=== PATIENT | male | born 1960 | race Caucasian/White ===

== ENCOUNTER 2019-03-28 06:21 | Emergency (ER) | payer OTHER ==
[~2019-03-28] VITALS: Ht 177.8 cm; Wt 86.2 kg
--- OUTSIDE RECORDS SUMMARY | ~2019-03-28 | XMS | Encounter Summary ---
Demographics + + + | Address | [address] | | | [place] [address] | + + + | Home Phone | | + + + | Preferred Language | Unknown | + + + | Marital Status | | + + + | Jewish Affiliation | Unknown | + + + | Race | Unknown | + + + | Ethnic Group | Unknown | + + + Author + + + | Author | [facility] | | | and [place] | + + + | Organization | [facility] | | | and [place] | + + + | Address | Unknown | + + + | Phone | Unavailable | + + + Support + + + + + | Name | Relationship | Address | Phone | + + + + + | Suzie Stafford | ECON | [address] | | | | | [place], [place] | | | | | [address] | | + + + + + Care Team Providers + +------+ + | Care Career Professional Name | Role | Phone | + +------+ + PCP | Unavailable | + +------+ + Encounter Details +--------+ + + + + | Date | Type | Department | Care Team | Description | +--------+ + + + + | 11/20/ | [facility] | [facility] | Efrain Caraballo | | | 2011 | Encounter | MED CTR XRAY [address] | MD [address] | | | | | [place] | [place] | | | | | [place] [address] | [place] [address] | | | | | [phone] | [phone] | | | | | | | | +--------+ + + [...] + + documented as of this encounter Medications at Time of Discharge + + + +---------+ + + | Medication | Sig | Dispensed | Refills | Start | End Date | | | | | | Date | | + + + +---------+ + + | | 1 tablet by mouth 3 | | 0 | 11/09/19 | | | HYDROcodone-acetamin | times a day as | | | 12 | 3 | | ophen (VICODIN) | needed. | | | | | | 5-500 mg per tablet | | | | | | + + + +---------+ + + | | 1 tablet by mouth | | 0 | 08/12/19 | | | HYDROcodone-acetamin | every 4-6 hours as | | | 11 | 2 | | ophen (VICODIN) | neeeded for pain | | | | | | 5-500 mg per tablet | | | | | | + + + +---------+ + + | hydrOXYzine | Take 1 tablet by | | 0 | 11/09/19 | | | (ATARAX) 25 MG | mouth at bedtime. | | | 12 | 3 | | tablet | | | | | | + + + +---------+ + + | metroNIDAZOLE | 1 tablet by mouth | | 0 | 08/12/19 | | | (FLAGYL) 500 MG | three times daily | | | 11 | 2 | | tablet | for 10 days | | | | | + + + +---------+ + + documented as of this encounter Plan of Treatment Not on filedocumented as of this encounter Procedures + +--------+ + + + | Procedure Name | Priori | Date/Time | Associated Diagnosis | Comments | | | ty | | | | + +--------+ + + + | ECHO COMPLETE | | 11/21/2011 | | Results for this | | | | 9:23 AM | | procedure are in the | | | | PDT | | results section. | + +--------+ + + + | VAS CAROTID DUPLEX | | 11/21/2011 | | Results for this | | BILATERAL | | 9:23 AM | | procedure are in the | | | | PDT | | results section. | + +--------+ + + + documented in this encounter Results VAS Carotid Duplex Bilateral (11/21/2011 9:23 AM PDT) + + | Specimen | + + | | + + + + + | Narrative | Performed At | + + + | [facility] | [facility] | | [address] [facility] | [facility] | | BILATERAL DUPLEX CAROTID | DIAG IMG | | ULTRASOUND 11/21/2011 CLINICAL HISTORY: CHEST PAIN AND CAD. | | | COMPARISON: None. FINDINGS: Dhillon scale, color Doppler | | | and duplex Doppler interrogation of the bilateral cervical carotid | | | arteries is performed. All reported velocities are in cm/sec. | | | ANTERIOR CIRCULATION: RIGHT: CCA: 82/16; bulb: 46/15; ECA: | | | 83/21; ICA: 87/42. LEFT: CCA: 105/28; bulb: 55/19; ECA: 84/24; | | | ICA: 75/30. POSTERIOR CIRCULATION: Antegrade flow is | | | documented within both vertebral arteries. DHILLON SCALE | | | FINDINGS: Eccentric, echogenic plaque is noted at the origin of the | | | right subclavian artery, without evidence of flow limiting stenosis. | | | There is mild intimal thickening within both common carotid | | | arteries as well as the carotid bulbs, without other evident plaque | | | formation. IMPRESSION: 1. NO EVIDENCE OF HEMODYNAMICALLY | | | SIGNIFICANT CERVICAL CAROTID STENOSIS ON THE BASIS OF PEAK SYSTOLIC | | | VELOCITY AND ICA/CCA RATIO CRITERIA. Dictated Date/Time: | | | 11/21/2011 11:05 Transcribed Date/Time: 11/21/2011 11:26 | | | Boat Dispatcher: <Electronically Signed by Yossi Fay MD> | | | 11/21/11 2149 | | + + + + + | Procedure Note | + + | Deepak, Raul Conversion - 05/31/2013 5:46 PM [facility] | | Diagnostic Imaging Department | | [address], [place] | | | | | | | | BILATERAL DUPLEX CAROTID ULTRASOUND 11/21/2011 | | | | CLINICAL HISTORY: CHEST PAIN AND CAD. | | | | COMPARISON: None. | | | | FINDINGS: Dhillon scale, color Doppler and duplex Doppler interrogation of the | | bilateral cervical carotid arteries is performed. All reported velocities are | | in cm/sec. | | | | ANTERIOR CIRCULATION: | | RIGHT: CCA: 82/16; bulb: 46/15; ECA: 83/21; ICA: 87/42. | | | | LEFT: CCA: 105/28; bulb: 55/19; ECA: 84/24; ICA: 75/30. | | | | POSTERIOR CIRCULATION: Antegrade flow is documented within both vertebral | | arteries. | | | | DHILLON SCALE FINDINGS: Eccentric, echogenic plaque is noted at the origin of the | | right subclavian artery, without evidence of flow limiting stenosis. There is | | mild intimal thickening within both common carotid arteries as well as the | | carotid bulbs, without other evident plaque formation. | | | | IMPRESSION: | | 1. NO EVIDENCE OF HEMODYNAMICALLY SIGNIFICANT CERVICAL CAROTID STENOSIS ON THE | | BASIS OF PEAK SYSTOLIC VELOCITY AND ICA/CCA RATIO CRITERIA. | | | | Dictated Date/Time: 11/21/2011 11:05 | | Transcribed Date/Time: 11/21/2011 11:26 | | Boat Dispatcher: | | <Electronically Signed by Yossi Fay MD> 11/21/11 1660 | + + + +---------+ + + | Performing | Address | City/State/Zipcode | Phone Number | | Organization | | | | + +---------+ + + | [facility] | | | | | [facility] | | | | + +---------+ + + ECHO Complete (11/21/2011 9:23 AM PDT) + + | Specimen | + + | | + + + + + | Narrative | Performed At | + + + | [facility] | [facility] | | [address] [facility] | [facility] | | E C H O C A R D | DIAG IMG | | I O G R A P H Y R E P O R T HEIGHT: 5'10" | | | WEIGHT: 195# TECHNICIAN SEMICONDUCTOR DEVELOPMENT: JW REFERRING DR: RASHMI | | | READING DR: RASHMI DIAGNOSIS: CHEST PAIN, CAD | | | | | | M E A S U R E M E N T S | | | Aortic Root: 38 mm LV Diameter-diastole: | | | 50 mm Aortic Cusp Sep: 22 mm LV | | | Diameter--systole: 35 mm LA: 31 mm | | | Fractional Shortenin % IVS--diastole: | | | 10 mm PFV Aortic Valve: IVS--systole: | | | 14 mm MPG Mitral Valve: mmHg | | | LVPW--diastole: 11 mm PFV TR Jet: | | | 2.46 m/s LVPW--systole: 14 mm RA/RV PPG: | | | 24.3 mmHg | | | | | | ECHOCARDIOGRAM, 11/21/2011 REFERRING PHYSICIAN: Jerrica MADRID | | | MD RASHMI CLINICAL HISTORY: CHEST PAIN. CORONARY ARTERY | | | DISEASE. TECHNICAL: The quality of the study is good. This is | | | a complete transthoracic echocardiogram including 2D, M-mode Doppler | | | and color-flow Doppler analysis. HEMODYNAMICS: Heart rate is in | | | the low 60's throughout the procedure. Blood pressure is 135/96 | | | at the time of the study. RESULTS CHAMBERS: The left | | | ventricle is of normal end-diastolic and end-systolic dimensions | | | with normal wall thickness and regional wall motion. LVEF is | | | calculated at 67%. Bilateral atria are of normal size. Right | | | ventricle is of normal size and systolic function. VALVES: | | | Aortic valve is a normal trileaflet valve with good opening. There | | | is no stenosis or insufficiency noted. Mitral valve is normal | | | without any significant thickening or prolapse. There is mild | | | regurgitation seen. Tricuspid valve is normal with mild | | | insufficiency and a peak velocity of 2.4 m/ sec, consistent with RV | | | systolic pressures of 29-34 mmHg. Pulmonic valve is normal. | | | MISCELLANEOUS: Aortic root measures at 37 mm. Pericardium is | | | normal without any pericardial effusion. IVC is normal. | | | DIASTOLOGY: Mitral in-flow diastolic parameters are consistent with | | | grade 1 left ventricular diastolic dysfunction. IMPRESSION: 1. | | | NORMAL LEFT VENTRICULAR SIZE AND SYSTOLIC FUNCTION WITH LVEF OF | | | 67%. 2. MILD MITRAL AND TRICUSPID REGURGITATION. 3. | | | BORDERLINE RIGHT-SIDED SYSTOLIC PRESSURES. Dictated Date/Time: | | | 11/21/2011 16:34 Transcribed Date/Time: 11/21/2011 16:54 | | | Boat Dispatcher: <Electronically Signed by Siddhartha Caraballo, | | | MD> 11/25/11 0922 | | + + + + + | Procedure Note | + + | Deepak, Rad Conversion - 05/31/2013 5:46 PM [facility] | | Diagnostic Imaging Department | | [address] [facility] | | | | | | | | E C H O C A R D I O G R A P H Y R E P O R T | | | | | | HEIGHT: 5'10" WEIGHT: 195# TECHNICIAN SEMICONDUCTOR DEVELOPMENT: JW | | REFERRING DR: RASHMI MAGAÑA DR: RASHMI | | | | DIAGNOSIS: CHEST PAIN, CAD | | | | | | M E A S U R E M E N T S | | | | Aortic Root: 38 mm LV Diameter-diastole: 50 mm | | Aortic Cusp Sep: 22 mm LV Diameter--systole: 35 mm | | LA: 31 mm Fractional Shortenin % | | IVS--diastole: 10 mm PFV Aortic Valve: | | IVS--systole: 14 mm MPG Mitral Valve: mmHg | | LVPW--diastole: 11 mm PFV TR Jet: 2.46 m/s | | LVPW--systole: 14 mm RA/RV PP.3 mmHg | | | | | | | | ECHOCARDIOGRAM, 11/21/2011 | | | | REFERRING PHYSICIAN: Jerrica CARABALLO MD | | | | CLINICAL HISTORY: CHEST PAIN. CORONARY ARTERY DISEASE. | | | | TECHNICAL: The quality of the study is good. This is a complete transthoracic | | echocardiogram including 2D, M-mode Doppler and color-flow Doppler analysis. | | | | HEMODYNAMICS: Heart rate is in the low 60's throughout the procedure. Blood | | pressure is 135/96 at the time of the study. | | | | RESULTS | | | | CHAMBERS: The left ventricle is of normal end-diastolic and end-systolic | | dimensions with normal wall thickness and regional wall motion. LVEF is | | calculated at 67%. Bilateral atria are of normal size. Right ventricle is of | | normal size and systolic function. | | | | VALVES: Aortic valve is a normal trileaflet valve with good opening. There is | | no stenosis or insufficiency noted. Mitral valve is normal without any | | significant thickening or prolapse. There is mild regurgitation seen. | | Tricuspid valve is normal with mild insufficiency and a peak velocity of 2.4 m/ | | sec, consistent with RV systolic pressures of 29-34 mmHg. Pulmonic valve is | | normal. | | | | MISCELLANEOUS: Aortic root measures at 37 mm. Pericardium is normal without | | any pericardial effusion. IVC is normal. | | | | DIASTOLOGY: Mitral in-flow diastolic parameters are consistent with grade 1 | | left ventricular diastolic dysfunction. | | | | IMPRESSION: | | 1. NORMAL LEFT VENTRICULAR SIZE AND SYSTOLIC FUNCTION WITH LVEF OF 67%. | | | | 2. MILD MITRAL AND TRICUSPID REGURGITATION. | | | | 3. BORDERLINE RIGHT-SIDED SYSTOLIC PRESSURES. | | | | Dictated Date/Time: 11/21/2011 16:34 | | Transcribed Date/Time: 11/21/2011 16:54 | | Boat Dispatcher: | | <Electronically Signed by Siddhartha Caraballo MD> 11/25/11 0922 | + + + +---------+ + + | Performing | Address | City/State/Zipcode | Phone Number | | Organization | | | | + +---------+ + + | [facility] | | | | | [facility] | | | | + +---------+ + + documented in this encounter Visit Diagnoses Not on filedocumented in this encounter
--- OUTSIDE RECORDS SUMMARY | ~2019-03-28 | XMS | Encounter Summary ---
Demographics + + + | Address | [address] | | | [place] [address] | + + + | Home Phone | | + + + | Preferred Language | Unknown | + + + | Marital Status | | + + + | Alevism Affiliation | Unknown | + + + | Race | Unknown | + + + | Ethnic Group | Unknown | + + + Author + + + | Author | [facility] | | | and [place] | + + + | Organization | [facility] | | | and [place] | + + + | Address | Unknown | + + + | Phone | Unavailable | + + + Support + + + + + | Name | Relationship | Address | Phone | + + + + + | Suzie Stafford | ECON | [address] | | | | | [place] | | | | | [address] | | + + + + + Care Team Providers + +------+ + | Care Keyseating Machine Set Up Operator Name | Role | Phone | + +------+ + | Gutierrez Jenkins PA-C | PCP | | + +------+ + Reason for Visit +--------+ + | Reason | Comments | +--------+ + | COPD | | +--------+ + Encounter Details +--------+---------+ + + + | Date | Type | Department | Care Team | Description | +--------+---------+ + + + | 09/21/ | Office | [facility] | Cosme Galvan, | Chronic bronchitis | | 2012 | Visit | PULMONARY [address] | MD [address] | ([facility]) (Primary Dx); | | | | [address] [place], | [place], [place] | COPD (chronic | | | | [place] [address] | [address] | obstructive | | | | [phone] | | pulmonary disease) | | | | | | ([facility]) | +--------+---------+ + + + Social History + + + +--------+ + | Tobacco Use | Types | Packs/Day | Years | Date | | | | | Used | | + + + +--------+ + | Former Smoker | Cigarettes | 2 | 46 | Quit: 12/24/2011 | + + + +--------+ + + +---+---+---+ | Smokeless Tobacco: | | | | | Never Used | | | | + +---+---+---+ + + +---------+ + | Alcohol Use | Drinks/Week | oz/Week | Comments | + + +---------+ + | No | | | | + + +---------+ + + + + | Sex Assigned at [...] + + documented as of this encounter Last Filed Vital Signs + + + + + | Vital Sign | Reading | Time Taken | Comments | + + + + + | Blood Pressure | 110/70 | 09/21/2012 3:19 PM | | | | | PDT | | + + + + + | Pulse | 77 | 09/21/2012 3:19 PM | | | | | PDT | | + + + + + | Temperature | - | - | | + + + + + | Respiratory Rate | - | - | | + + + + + | Oxygen Saturation | 98% | 09/21/2012 3:19 PM | | | | | PDT | | + + + + + | Inhaled Oxygen | - | - | | | Concentration | | | | + + + + + | Weight | 84.3 kg (185 lb 14.4 | 09/21/2012 3:19 PM | | | | oz) | PDT | | + + + + + | Height | 175.3 cm (5' 9") | 09/21/2012 3:19 PM | | | | | PDT | | + + + + + | Body Mass Index | 27.45 | 09/21/2012 3:19 PM | | | | | PDT | | + + + + + documented in this encounter Patient Instructions Patient Instructions Cosme Galvan MD - 09/21/2012 3:43 PM PDTContinue with daily Spi tete and as needed Ventolin. Flu shot in Fall. documented in this encounter Progress Notes Cosme Galvan MD - 09/21/2012 3:33 PM PDTFormatting of this note might be different f rom the original. Pulmonary Follow Up 09/21/2012 HPI Eliud Stafford is a 52 y.o. male patient of Gutierrez Jenkins here today for follow up of [place]. Last visit was in 08/30/12. Since their last visit he feels like he has been doing better. They have not had any acute illnesses. They are currently on a regimen of Spiriva. The bhanu ent used also records and Spiriva. He preferred Spiriva over Symbicort. They do feel like this medication regimen is working for them. They return today for routin e follow up. Currently they are using their rescue inhaler, Ventolin, 2 times a day. Currently they are able to walk 5-10 blocks at their own pace on level ground. They are exe rcising regularly. They are not enrolled in cardiac/pulmonary rehabilitation or other physic al therapy. They have not completed pulmonary rehabilitation in the past. He does cough chronically, and does produce mucous. Large amounts of clear and thin materi al in the night. They have not had hemoptysis. He has not been evaluated for nocturnal oxygen and does not use it. He does not had symptoms of heartburn or reflux. They have not had symptoms of nasal conges tion, runny nose or post nasal drip. Eliud has not used tobacco since December 1999 while. Past Medical History Past Medical History Diagnosis Date Hyperlipidemia Coronary artery disease Stress test 11/2006 CHF STROKE/PER PATIENT 2011 2009 Tobacco user Quit 2011 Gastroesophageal reflux disease Chronic pain treated with opiates Chest pain Palpitation Hernia Hepatitis C Genotype 2b. has been ID and ofered interferon but paitnet did not follow up -2007 Bipolar affective disorder Panic disorder COPD (chronic obstructive pulmonary disease) Normal FEV1/FVC Mitral stenosis with insufficiency Nondependent opioid abuse, continuous Pneumonia recurrent External hemorrhoid Chronic bronchitis Social History: He reports that he quit smoking about 8 months ago. His smoking use included Cigarettes. He has a 92 pack-year smoking history. He has never used smokeless tobacco. He reports that he uses illicit drugs (Marijuana) about 7 times per week. He reports that he does not drink al cohol. Allergies: Allergies Allergen Reactions Azithromycin Palpitations Numbness, tachycardia, tremors Ativan Irritability Codeine Sulfate Itching Medications: Current outpatient prescriptions:albuterol (VENTOLIN HFA) 90 mcg/puff inhaler, Inhale 2 puf fs into the lungs every 6 hours as needed., Disp: , Rfl: ; aspirin 81 mg EC tablet, Take 81 mg by mouth Daily., Disp: , Rfl: ; HYDROcodone-acetaminophen (NORCO) 7.5-325 mg per tablet , Take 1 tablet by mouth every 8 hours as needed., Disp: , Rfl: ; medical marijuana (CANNAB IS) inhalation, Inhale 2 puffs into the lungs as needed., Disp: , Rfl: mupirocin (BACTROBAN) 2% ointment, Apply topically 2 times daily., Disp: , Rfl: ; omepraz ole (PRILOSEC) 20 mg capsule, Take 20 mg by mouth Daily., Disp: , Rfl: ; simvastatin (ZOCOR ) 40 mg tablet, One tablet by mouth one time daily, Disp: 30 tablet, Rfl: 6; tiotropium (SP IRIVA HANDIHALER) 18 mcg inhalation capsule, Inhale contents of one capsule once daily (do n ot swallow capsules), Disp: 10 capsule, Rfl: 0 Review of Systems Constitutional: Denies fever, chills, sweats, fatigue/weakness, and unexpected weight smyth ge. Sleep: Denies trouble sleeping, excessive snoring, and daytime sleepiness. Eyes: Denies vision change, and eye irritation. ENT: Denies earache, tinnitus, decreased hearing, nosebleeds, sore throat, and hoarseness. Resp: See HPI. CV: Denies neck/chest/jaw pain with exertion, palpitations, lightheadedness, syncope, dysp tima on exertion, orthopnea, PND, peripheral edema, and claudication. GI: Denies trouble swallowing, nausea, vomiting, abdominal pain, diarrhea, constipation,m tesfaye, and hematochezia. Neurologic: Denies frequent headaches, seizures, tremors, numbness or tingling in hands or feet, vertigo, and fall or difficulty walking in past 6 months. Allergy Denies urticaria, allergic rash, hay fever. Objective BP 110/70 | Pulse 77 | Ht 1.753 m (5' 9") | Wt 84.324 kg (185 lb 14.4 oz) | BMI 27.45 kg/m2 | SpO2 98% Appearance: Alert, cooperative, no distress, appears stated age Head: Normocephalic, without obvious abnormality, atraumatic Eyes: PERRL, conjunctiva/corneas clear Nose: Nares normal, septum midline, mucosa normal, no drainage or sinus tenderness Throat: Lips, mucosa, and tongue normal; teeth/dentures normal Neck: Supple, symmetrical, no JVD Lungs: No accessory muscle use, breath sounds are clear to auscultation bilaterally, no w heezes, crackles or rhonchi. No dullness to percussion. Chest Wall: No tenderness or deformity Heart: Regular rate and rhythm, S1, S2 normal, no murmur, rub or gallop Extremities: Extremities normal, atraumatic, no cyanosis, clubbing, or edema Skin: Warm and dry Lymph nodes: Cervical and supraclavicular nodes normal Neurologic: Gait normal Data: Chest x-ray report from 08/15/12 nodes no evidence of hyperinflation or findings concerning for asbestos exposure. Pulmonary function tests were performed on 07/30/12 and were reviewed and interpreted in clin ic today. They show FVC 4.99, 103% of predicted. The FEV1 is 4.11, 109% of predicted. The FEV1/FVC is 78%. Exertional oximetry patient walked approximately 750/3 and half minutes. His O2 saturation started 98% and nadired at 95%. Assessment 1. Chronic bronchitis-Eliud has symptoms consistent with chronic bronchitis. The characte r of the patient's alleged sputum is somewhat atypical. However given the overall improvement no additional studies will be performed at this time. 2. Probable COPD-Eliud does have a normal FEV1/FVC. Improvement of symptoms has occurred with Spiriva. The patient was counseled to use albuterol as needed. The benefits of seasonal influenza vaccination were reviewed. The patient's normal spirometry and symptoms speaking against asbestos-related lung disease . However when he returns for followup we will perform complete pulmonary function tests to assess for a diffusion abnormality. Plan 1. Continue Spiriva daily and as needed Ventolin. 2. Seasonal influenza vaccination fall 2012. 3. Pulmonary clinic followup appointment with pulmonary function tests in 12 months time. CC: Gutierrez Jenkins documented in this encounter Plan of Treatment + + +--------+ + + | Name | Type | Priori | Associated Diagnoses | Order Schedule | | | | ty | | | + + +--------+ + + | Pulmonary Fx Tests | Respiratory | [facility] | COPD (chronic | Expected: | | (Hospital Performed) | Care | | obstructive | 09/21/2013, Expires: | | | | | pulmonary disease) | 09/21/2014 | | | | | (HCC) | | + + +--------+ + + documented as of this encounter Visit Diagnoses + + | Diagnosis | + + | Chronic bronchitis (HCC) - Primary Unspecified chronic bronchitis | + + | COPD (chronic obstructive pulmonary disease) (HCC) Chronic airway obstruction, not | | elsewhere classified | + + documented in this encounter
--- OUTSIDE RECORDS SUMMARY | ~2019-03-28 | XMS | Encounter Summary ---
Demographics + + + | Address | [address] | | | [place] [address] | + + + | Home Phone | | + + + | Preferred Language | Unknown | + + + | Marital Status | | + + + | Oriental Orthodox Affiliation | Unknown | + + + | Race | Unknown | + + + | Ethnic Group | Unknown | + + + Author + + + | Author | [facility] | | | and [place] | + + + | Organization | [facility] | | | and [place] | + + + | Address | Unknown | + + + | Phone | Unavailable | + + + Support + + + + + | Name | Relationship | Address | Phone | + + + + + | Suzie Stafford | ECON | [address] | | | | | [place], [place] | | | | | [address] | | + + + + + Care Team Providers + +------+ + | Care Software Tools Engineer Name | Role | Phone | + +------+ + PCP | Unavailable | + +------+ + Encounter Details +--------+ + + + + | Date | Type | Department | Care Team | Description | +--------+ + + + + | 01/03/ | Abstract | [place] [facility] | [facility] | | | 2011 | | Conversion Location | [facility] | | | | | [phone] | | | +--------+ + + + [...] + + + | Blood Pressure | 102/80 | 12/14/2011 12:00 AM | | | | | PDT | | + + + + + | Pulse | - | - | | + + + + + | Temperature | - | - | | + + + + + | Respiratory Rate | - | - | | + + + + + | Oxygen Saturation | - | - | | + + + + + | Inhaled Oxygen | - | - | | | Concentration | | | | + + + + + | Weight | 87.5 kg (193 lb) | 12/14/2011 12:00 AM | | | | | PDT | | + + + + + | Height | 176 cm (5' 9.29") | 07/08/2010 12:00 AM | | | | | PDT | | + + + + + | Body Mass Index | 28.26 | 07/08/2010 12:00 AM | | | | | PDT | | + + + + + documented in this encounter Plan of Treatment Not on filedocumented as of this encounter Procedures + +--------+ + + + | Procedure Name | Priori | Date/Time | Associated Diagnosis | Comments | | | ty | | | | + +--------+ + + + | ENDOSCOPY, COLON, | Routin | 09/06/2010 | | Results for this | | DIAGNOSTIC | e | 12:00 AM | | procedure are in the | | | | PDT | | results section. | + +--------+ + + + documented in this encounter Results ENDOSCOPY, COLON, DIAGNOSTIC (09/06/2010 12:00 AM PDT) + + | Specimen | + + | | + + + + + | Narrative | Performed At | + + + | | | + + + documented in this encounter Visit Diagnoses Not on filedocumented in this encounter
--- OUTSIDE RECORDS SUMMARY | ~2019-03-28 | XMS | Encounter Summary ---
Demographics + + + | Address | [address] | | | [place] [address] | + + + | Home Phone | | + + + | Preferred Language | Unknown | + + + | Marital Status | | + + + | Synagogue Affiliation | Unknown | + + + | Race | Unknown | + + + | Ethnic Group | Unknown | + + + Author + + + | Author | [facility] | | | and [place] | + + + | Organization | [facility] | | | and [place] | + + + | Address | Unknown | + + + | Phone | Unavailable | + + + Support + + + + + | Name | Relationship | Address | Phone | + + + + + | Suzie Stafford | ECON | [address] | | | | | [place], [place] | | | | | [address] | | + + + + + Care Team Providers + +------+ + | Care Golf Sales Associate Name | Role | Phone | + +------+ + | Gutierrez Jenkins PA-C | PCP | | + +------+ + Encounter Details +--------+ + + + + | Date | Type | Department | Care Team | Description | +--------+ + + + + | 08/02/ | Abstract | [facility] [place] | Cosme Galvan, | COPD (chronic | | 2013 | | PULMONARY [address] | MD [address] | obstructive | | | | [place], | [place], [place] | pulmonary disease) | | | | [place] [address] | [address] | (HCC) (Primary Dx); | | | | [phone] | | Mitral stenosis with | | | | | | insufficiency; | | | | | | Nondependent opioid | | | | | | abuse, continuous | +--------+ + + + + Social History + + + +--------+ + | Tobacco Use | Types | Packs/Day | Years | Date | | | | | Used | | + + + +--------+ + | Former Smoker | Cigarettes | 2 | 45 | Quit: 12/24/2011 | + + + [...] + + + | Blood Pressure | 144/92 | 07/23/2012 2:06 PM | | | | | PDT | | + + + + + | Pulse | 84 | 07/23/2012 2:06 PM | | | | | PDT | | + + + + + | Temperature | - | - | | + + + + + | Respiratory Rate | - | - | | + + + + + | Oxygen Saturation | 95% | 07/23/2012 2:06 PM | | | | | PDT | | + + + + + | Inhaled Oxygen | - | - | | | Concentration | | | | + + + + + | Weight | 84.8 kg (187 lb) | 07/23/2012 2:06 PM | | | | | PDT | | + + + + + | Height | - | - | | + + + + + | Body Mass Index | 27.38 | 07/08/2010 12:00 AM | | | | | PDT | | + + + + + documented in this encounter Plan of Treatment Not on filedocumented as of this encounter Visit Diagnoses + + | Diagnosis | + + | COPD (chronic obstructive pulmonary disease) (HCC) - Primary Chronic airway | | obstruction, not elsewhere classified | + + | Mitral stenosis with insufficiency | + + | Nondependent opioid abuse, continuous (HCC) Opioid abuse, continuous | + + documented in this encounter"
--- OUTSIDE RECORDS SUMMARY | ~2019-03-28 | XMS | Encounter Summary ---
Demographics + + + | Address | [address] | | | [place] [address] | + + + | Home Phone | | + + + | Preferred Language | Unknown | + + + | Marital Status | | + + + | Anabaptism Affiliation | Unknown | + + + | Race | Unknown | + + + | Ethnic Group | Unknown | + + + Author + + + | Author | [facility] | | | and [place] | + + + | Organization | [facility] | | | and [place] | + + + | Address | Unknown | + + + | Phone | Unavailable | + + + Support + + + + + | Name | Relationship | Address | Phone | + + + + + | Suzie Stafford | ECON | [address] | | | | | [place], [place] | | | | | [address] | | + + + + + Care Team Providers + +------+ + | Care Screen Printer Helper Name | Role | Phone | + [...] W | Dx) | | | | [place], | [address] [place] | | | | | [place] [address] | [place] [address] | | | | | [phone] | [phone] | | | | | | | [...]
--- OUTSIDE RECORDS SUMMARY | ~2019-03-28 | XMS | Encounter Summary ---
Demographics + + + | Address | [address] | | | [place] [address] | + + + | Home Phone | | + + + | Preferred Language | Unknown | + + + | Marital Status | | + + + | Hinduism Affiliation | Unknown | + + + | Race | Unknown | + + + | Ethnic Group | Unknown | + + + Author + + + | Author | [facility] | | | and [place] | + + + | Organization | [facility] | | | and [place] | + + + | Address | Unknown | + + + | Phone | Unavailable | + + + Support + + + + + | Name | Relationship | Address | Phone | + + + + + | Suzie Stafford | ECON | [address] | | | | | [place], [place] | | | | | [address] | | + + + + + Care Team Providers + +------+ + | Care Environmental Services Aide Name | Role | Phone | + [...] W | Dx) | | | | [place], | [address] [place] | | | | | [place] [address] | [place] [address] | | | | | [phone] | [phone] | | | | | | | [...]
--- OUTSIDE RECORDS SUMMARY | ~2019-03-28 | XMS | Encounter Summary ---
Demographics + + + | Address | [address] | | | [place] [address] | + + + | Home Phone | | + + + | Preferred Language | Unknown | + + + | Marital Status | | + + + | Cheondoism Affiliation | Unknown | + + + | Race | Unknown | + + + | Ethnic Group | Unknown | + + + Author + + + | Author | [facility] | | | and [place] | + + + | Organization | [facility] | | | and [place] | + + + | Address | Unknown | + + + | Phone | Unavailable | + + + Support + + + + + | Name | Relationship | Address | Phone | + + + + + | Suzie Stafford | ECON | [address] | | | | | [place], [place] | | | | | [address] | | + + + + + Care Team Providers + +------+ + | Care Tongue And Groove Machine Feeder Name | Role | Phone | + [...] | SR | | | | | [phone] | | | +--------+ + + + [...]
--- OUTSIDE RECORDS SUMMARY | ~2019-03-28 | XMS | Encounter Summary ---
Demographics + + + | Address | [address] | | | [place] [address] | + + + | Home Phone | | + + + | Preferred Language | Unknown | + + + | Marital Status | | + + + | Jew Affiliation | Unknown | + + + | Race | Unknown | + + + | Ethnic Group | Unknown | + + + Author + + + | Author | [facility] | | | and [place] | + + + | Organization | [facility] | | | and [place] | + + + | Address | Unknown | + + + | Phone | Unavailable | + + + Support + + + + + | Name | Relationship | Address | Phone | + + + + + | Suzie Stafford | ECON | [address] | | | | | [place] | | | | | [address] | | + + + + + Care Team Providers + +------+ + | Care Nurse Discharge Name | Role | Phone | + +------+ + | Gutierrez Jenkins PA-C | PCP | | + +------+ + Reason for Visit + + + | Reason | Comments | + + + | Hyperlipidemia | Eight month follow up | + + + Encounter Details +--------+---------+ + + + | Date | Type | Department | Care Team | Description | +--------+---------+ + + + | 07/25/ | Office | [facility] [place] | Efrain Pettti | Chest pain (Primary | | 2012 | Visit | CARDIOLOGY [address] | MD Gonz[address] | Dx); Coronary | | | | [place], | [address] [place] | atherosclerosis due | | | | [place] [address] | [place] [address] | to lipid rich | | | | [phone] | [phone] | plaque; Dyslipidemia | | | | | | | +--------+---------+ + + + Social History [...] + + + | Blood Pressure | 122/80 | 07/25/2012 10:16 AM | left arm | | | | PDT | | + + + + + | Pulse | 72 | 07/25/2012 10:16 AM | regular | | | | PDT | | + + + + + | Temperature | - | - | | + + + + + | Respiratory Rate | 14 | 07/25/2012 10:16 AM | | | | | PDT | | + + + + + | Oxygen Saturation | - | - | | + + + + + | Inhaled Oxygen | - | - | | | Concentration | | | | + + + + + | Weight | 83.5 kg (184 lb) | 07/25/2012 10:16 AM | | | | | PDT | | + + + + + | Height | 174 cm (5' 8.5") | 07/25/2012 10:16 AM | | | | | PDT | | + + + + + | Body Mass Index | 27.57 | 07/25/2012 10:16 AM | | | | | PDT | | + + + + + documented in this encounter Progress Notes Efrain Pettit MD - 07/25/2012 10:12 AM PDTFormatting of this note might be differe nt from the original. Subjective: Cardiology Office Visit Date of Service: 07/25/2012 Patient ID: Eliud Stafford is a 52 y.o. male. PCP: Gutierrez GUERRERO The patient is a 52-year-old male with previous history of nonobstructive coronary artery d isease and atypical chest discomfort, here for a routine followup visit. He states that he n ever filled his statin prescription. He also asked that he has been mostly eating and milk a s part of his diet. He denies any chest pain or shortness of breath but complains of general ized dizziness and weakness. Previously, he underwent repeat cardiac catheterization which went uneventfully which confi rmed preserved LV systolic function and a 20 to 30% tubular mid LAD stenosis similar to that previously described on the patient's prior angiogram 5 years ago at [facility]. He also underwent transthoracic echocardiogram which showed mild MR and TR and preserved LV function with borderline right-sided systolic pressures. The patient also underwent the carotid duplex ultrasound exam given his history of monocular left-sided blindness which is did not reveal any significant carotid disease. Patient Active Problem List Diagnoses Tobacco user HYPERLIPIDEMIA GASTROESOPHAGEAL REFLUX DISEASE CORONARY ARTERY DISEASE IBS (irritable bowel syndrome) SUBSTANCE ABUSE PSYCHIATRIC DISORDER, HX OF HEPATITIS C Back pain, chronic Chest pain CHF Palpitation HERNIA STROKE/PER PATIENT 2011 Past Surgical History Procedure Date Cardiac catherization 12/2006 Cardiac catherization 11/22/11 LVEF 65% Vasectomy Hip surgery 2012 right Leg surgery right No family history on file. History Social History Marital Status: Spouse Name: Suzie Number of Children: 8 Years of Education: N/A Occupational History general service technician Disabled Social History Main Topics Smoking status: Former Smoker -- 2.0 packs/day for 45 years Types: Cigarettes Quit date: 12/24/2011 Smokeless tobacco: Never Used Alcohol Use: No Drug Use: 7 per week Special: Marijuana daily Sexually Active: Not on file Other Topics Concern Not on file Social History Narrative Exercise: noneCaffeine: 1 cup coffee dailyLiving Situation: with spouse Current Outpatient Prescriptions Medication Sig Dispense Refill HYDROcodone-acetaminophen (LORTAB) 7.5-500 mg per tablet Take 1 tablet by mouth every 6 hours as needed. albuterol (VENTOLIN HFA) 90 mcg/puff inhaler Inhale 2 puffs into the lungs every 6 hour s as needed. aspirin 81 mg EC tablet Take 81 mg by mouth Daily. omeprazole (PRILOSEC) 20 mg capsule Take 20 mg by mouth Daily. simvastatin (ZOCOR) 40 mg tablet One tablet by mouth one time daily 30 tablet 6 Allergies Allergen Reactions Azithromycin Palpitations Numbness, tachycardia, tremors Ativan Codeine Sulfate Review of Systems Constitutional: Positive for diaphoresis. Negative for fever, chills, activity change, appe tite change, fatigue and unexpected weight change. HENT: Negative for hearing loss, ear pain, nosebleeds, congestion, dental problem and tinni tus. Eyes: Positive for visual disturbance. Respiratory: Positive for wheezing. Negative for apnea, cough, choking, chest tightness, sh ortness of breath and stridor. Cardiovascular: Positive for chest pain and palpitations. Negative for leg swelling. Gastrointestinal: Negative for nausea, vomiting, abdominal pain, diarrhea, constipation, bl ood in stool, abdominal distention, anal bleeding and rectal pain. Genitourinary: Positive for difficulty urinating. Negative for urgency, frequency, hematuri a and decreased urine volume. Musculoskeletal: Negative for myalgias, back pain, joint swelling, arthralgias and gait pro blem. Skin: Negative for color change and rash. Neurological: Positive for dizziness, speech difficulty, weakness, light-headedness, numbne ss and headaches. Negative for tremors, seizures and syncope. Hematological: Negative for adenopathy. Does not bruise/bleed easily. Psychiatric/Behavioral: Positive for confusion, disturbed wake/sleep cycle and decreased co ncentration. The patient is nervous/anxious. Objective: Physical Exam Vitals reviewed. Constitutional: He is oriented to person, place, and time. He appears well-developed and we ll-nourished. HENT: Head: Normocephalic and atraumatic. Eyes: Conjunctivae and EOM are normal. Neck: Normal range of motion. Neck supple. No thyromegaly present. Cardiovascular: Normal rate, regular rhythm, S1 normal, S2 normal, normal heart sounds and intact distal pulses. PMI is not displaced. Exam reveals no gallop and no friction rub. No murmur heard. Pulmonary/Chest: Effort normal and breath sounds normal. No respiratory distress. He has no wheezes. He has no rales. He exhibits no tenderness. Abdominal: Soft. Bowel sounds are normal. He exhibits no distension and no mass. There is n o tenderness. There is no rebound and no guarding. Musculoskeletal: Normal range of motion. He exhibits no edema. Lymphadenopathy: He has no cervical adenopathy. Neurological: He is alert and oriented to person, place, and time. Skin: Skin is warm and dry. No rash noted. Psychiatric: He has a normal mood and affect. Electrocardiogram reviewed by me shows normal sinus rhythm, heart rate 70, borderline T-wav e abnormalities inferiorly. Carotid US - no sig lesions TC 252 TG 115 HDL 36 LDL 193 I personally reviewed and interpreted the Echo images of 11/21/2011. LVEF 67%, mild MR/TR. I personally reviewed the cardiac cath images and report of 11/22/2011. LVEF ~ 65%, mild m id-LAD lesion c/w prior cath. Assessment: 1. CAD - patient has had evidence of mild, nonobstructive LAD disease and the focus will re main on continued medical therapy and risk factor reduction. He remains asymptomatic at this point. 2. 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 The patient's carotid duplex ultrasound exam was unrevealing. I will defer to the patient's primary provider whet her any further neuro imaging is in order. Given patient's symptoms, this may be indicated. 3. TOBACCO CESSATION. I have congratulated the patient on successfully quitting smoking since our last appointment. This is a fairly recent event and will benefit from future reinforcement. The patient's does not smoke. 4. DYSLIPIDEMIA. Patient has had a worsening trend in his dyslipidemia, likely in the cont ext of his worsening diet. We had extensive discussion regarding the importance of minimizin g intake of cholesterol and saturated fats, and to be fill his prescription of simvastatin 4 0 mg daily. He may very well need a more potent statin regimen, with a target LDL of at leas t less than 100 mg/dL, and ideally closer to 70 mg/dL. Plan: 1. Represcribe simvastatin 40 mg daily. 2. Continue remainder of medical regimen. 3. Reemphasized the importance of tobacco cessation. 4. Followup visit in 6 months or sooner if clinically indicated. documented in t his encounter Plan of Treatment + +------+--------+ + + | Name | Type | Priori | Associated Diagnoses | Order Schedule | | | | ty | | | + +------+--------+ + + | ECG 12 lead | ECG | Routin | Chest pain | Ordered: 07/25/2012 | | | | e | | | + +------+--------+ + + documented as of this encounter Visit Diagnoses + + | Diagnosis | + + | Chest pain - Primary Chest pain, unspecified | + + | Coronary atherosclerosis due to lipid rich plaque | + + | Dyslipidemia Other and unspecified hyperlipidemia | + + documented in this encounter
--- OUTSIDE RECORDS SUMMARY | ~2019-03-28 | XMS | Encounter Summary ---
Demographics + + + | Address | [address] | | | [place] [address] | + + + | Home Phone | | + + + | Preferred Language | Unknown | + + + | Marital Status | | + + + | Uatsdin Affiliation | Unknown | + + + | Race | Unknown | + + + | Ethnic Group | Unknown | + + + Author + + + | Author | [facility] | | | and [place] | + + + | Organization | [facility] | | | and [place] | + + + | Address | Unknown | + + + | Phone | Unavailable | + + + Support + + + + + | Name | Relationship | Address | Phone | + + + + + | Suzie Stafford | ECON | [address] | | | | | [place] | | | | | [address] | | + + + + + Care Team Providers + +------+ + | Care Political Theory Professor Name | Role | Phone | + +------+ + | Gutierrez Jenkins PA-C | PCP | | + +------+ + Reason for Visit + + + | Reason | Comments | + + + | Appointment | FOLLOW UP | + + + Encounter Details +--------+ + + + + | Date | Type | Department | Care Team | Description | +--------+ + + + + | 09/09/ | Telephone | [facility] [place] | Cosme Galvan, | Appointment (FOLLOW | | 2013 | | PULMONARY [address] | MD [address] | UP) | | | | [place], | [place], [place] | | | | | [place] [address] | [address] | | | | | [phone] | | | +--------+ + + + [...]
--- OUTSIDE RECORDS SUMMARY | ~2019-03-28 | XMS | Encounter Summary ---
Demographics + + + | Address | [address] | | | [place] [address] | + + + | Home Phone | | + + + | Preferred Language | Unknown | + + + | Marital Status | | + + + | Restorationism Affiliation | Unknown | + + + | Race | White | + + + | Ethnic Group | Not or | + + + Author + + + | Author | [facility] | + + + | Organization | [facility] | + + + | Address [...] Team Providers + +------+ + | Care Retail Sales Representative Name | Role | Phone | + [...]
--- OUTSIDE RECORDS SUMMARY | ~2019-03-28 | XMS | Encounter Summary ---
Demographics + + + | Address | [address] | | | [place] [address] | + + + | Home Phone | | + + + | Preferred Language | Unknown | + + + | Marital Status | | + + + | Islam Affiliation | Unknown | + + + | Race | Unknown | + + + | Ethnic Group | Unknown | + + + Author + + + | Author | [facility] | | | and [place] | + + + | Organization | [facility] | | | and [place] | + + + | Address | Unknown | + + + | Phone | Unavailable | + + + Support + + + + + | Name | Relationship | Address | Phone | + + + + + | Suzie Stafford | ECON | [address] | | | | | [place] | | | | | [address] | | + + + + + Care Team Providers + +------+ + | Care Speedometer Inspector Name | Role | Phone | + [...] + + | 09/21/ | [facility] | Cosme Galvan, | Chronic bronchitis | | 2012 | Visit | PULMONARY [address] | MD [address] | ([facility]) (Primary Dx); | | | | [place], | [place], [place] | COPD (chronic | | | | [place] [address] | [address] | obstructive | | | | [phone] | | pulmonary disease) | | | | | | ([facility]) | +--------+---------+ + + + [...]
--- OUTSIDE RECORDS SUMMARY | ~2019-03-28 | XMS | Clinical Summary ---
Demographics + + + | Address | [address] | | | [place] [address] | + + + | Home Phone | | + + + | Preferred Language | Unknown | + + + | Marital Status | | + + + | Mormonism Affiliation | Unknown | + + + | Race | Unknown | + + + | Ethnic Group | Unknown | + + + Author + + + | Author | [facility] | | | and [place] | + + + | Organization | [facility] | | | and [place] | + + + | Address | Unknown | + + + | Phone | Unavailable | + + + Support + + + + + | Name | Relationship | Address | Phone | + + + + + | Suzie Stafford | ECON | [address] | | | | | [place] | | | | | [address] | | + + + + + Care Team Providers + +------+ + | Care Fruit And Vegetable Packer Name | Role | Phone | + +------+ + | Enmanuel Rascon DO | PCP | | + +------+ + Allergies + + + + + + | Active Allergy | Reactions | Severity | Noted | Comments | | | | | Date | | + + + + + + | Codeine Sulfate | Itching | | | | + + + + + + | Lorazepam | | | | Irritability | + + + + + + | Azithromycin | Palpitations | High | 07/26/19 | Numbness, | | | | | 13 | tachycardia, tremors | + + + + + + Medications + + + +---------+------+------+-------+ | Medication | Sig | Dispensed | Refills | Star | End | Statu | | | | | | t | Date | s | | | | | | Date | | | + + + +---------+------+------+-------+ | aspirin 81 mg EC | Take 81 mg by mouth | | 0 | 09/ | | Activ | | tablet | Daily. | | | 06/13 | | e | | | | | | 12 | | | + + + +---------+------+------+-------+ | omeprazole | Take 20 mg by mouth | | 0 | 09/1 | | Activ | | (PRILOSEC) 20 mg | Daily. | | | 2/20 | | e | | capsule | | | | 12 | | | + + + +---------+------+------+-------+ | albuterol | Inhale 2 puffs into | | 0 | | | Activ | | (VENTOLIN HFA) 90 | the lungs every 6 | | | | | e | | mcg/puff inhaler | hours as needed. | | | | | | + + + +---------+------+------+-------+ | simvastatin | One tablet by mouth | 30 | 6 | 04/0 | | Activ | | (ZOCOR) 40 mg tablet | one time daily | tablet | | 3/20 | | e | | | | | | 13 | | | + + + +---------+------+------+-------+ | mupirocin | Apply topically 2 | | 0 | | | Activ | | (BACTROBAN) 2% | times daily. | | | | | e | | ointment | | | | | | | + + + +---------+------+------+-------+ | | Take 1 tablet by | | 0 | | | Activ | | HYDROcodone-acetamin | mouth every 8 hours | | | | | e | | ophen (NORCO) | as needed. | | | | | | | 7.5-325 mg per | | | | | | | | tablet | | | | | | | + + + +---------+------+------+-------+ | tiotropium | Inhale contents of | 10 | 0 | 05/0 | | Activ | | (SPIRIVA HANDIHALER) | one capsule once | capsule | | 9/20 | | e | | 18 mcg inhalation | daily (do not | | | 13 | | | | capsuleIndications: | swallow capsules) | | | | | | | COPD (chronic | | | | | | | | obstructive | | | | | | | | pulmonary disease) | | | | | | | | ([facility]) | | | | | | | + + + +---------+------+------+-------+ | medical marijuana | Inhale 2 puffs into | | 0 | | | Activ | | (CANNABIS) | the lungs as needed. | | | | | e | | inhalation | | | | | | | + + + +---------+------+------+-------+ Active Problems + + + | Problem | Noted Date | + + + | Asbestos exposure | 08/30/2012 | + + + | COPD (chronic obstructive pulmonary disease) | 08/02/2012 | + + + | Mitral stenosis with insufficiency | 08/02/2012 | + + + | Nondependent opioid abuse, continuous | 08/02/2012 | + + + | Tobacco user | | + + + | HYPERLIPIDEMIA | | + + + | GASTROESOPHAGEAL REFLUX DISEASE | | + + + | CORONARY ARTERY DISEASE | | + + + | IBS (irritable bowel syndrome) | | + + + | SUBSTANCE ABUSE | | + + + | PSYCHIATRIC DISORDER, HX OF | | + + + | HEPATITIS C | | + + + + + | Overview: ICD-10 Record update | + + + +---+ | Back pain, chronic | | + +---+ | Chest pain | | + +---+ + + | Overview: Echo 11/21/11, LVEF 67%Cardiac Cath 11/22/11, LVEF | | 65%, mild mid-LAD lesion c/w prior cath. | + + + +---+ | CHF | | + +---+ | Palpitation | | + +---+ | HERNIA | | + +---+ | STROKE/PER PATIENT 2012 | | + +---+ | Chronic bronchitis | | + +---+ Family History + + +------+ + | Medical History | Relation | Name | Comments | + + +------+ + | Irritable bowel | Brother | | | | syndrome | | | | + + +------+ + | Kidney disease | Brother | | | + + +------+ + | Cancer | Father | | colon/prostate | + + +------+ + | High blood pressure | Father | | | + + +------+ + | * | Mother | | suicide | + + +------+ + + +------+ + + | Relation | Name | Status | Comments | + +------+ + + | Brother | | Alive | | + +------+ + + | Brother | | Alive | | + +------+ + + | Brother | | | | + +------+ + + | Father | | | CHF, colon cancer, heart disease | | | | (Age | | | | | 72) | | + +------+ + + | Mother | | | | + +------+ + + Social History + + + [...] recent travel history available. | + + Last Filed Vital Signs + + + [...] + + + + | Temperature | 36.6 C (97.8 F) | 08/30/2012 1:24 PM | | | | | PDT [...] | | + + + + + Plan of Treatment + + + + + | Health Maintenance | Due Date | Last Done | Comments | + + + + + | Vaccine: Zoster (1 | | | | | of 2) | 2 | | | + + + + + | Vaccine: Influenza | | | | | (#1) | 9 | | | + + + + + | Vaccine: | | 11/14/2009 | | | Dtap/Tdap/Td (2 - | 0 | | | | Td) | | | | + + + + + Results Not on filefrom Last 3 Months Insurance + +--------+ +--------+ +---------+--------+ | Payer | Benefi | Subscriber | Effect | Phone | Address | Type | | | t Plan | ID | jose d | | | | | | / | | Dates | | | | | | Group | | | | | | + +--------+ +--------+ +---------+--------+ | [employer] | [employer] | [id number] | | | | Indemn | | | INS | 6 | 015-Pr | | | ity | | | MVA | | esent | | | | + +--------+ +--------+ +---------+--------+ | [employer] | [employer]A | [id number] | | [phone] | | Medica | | MEDICAID HMO | HEALTH | | 012-Pr | 1 | | id | | | MDCD | | esent | | | | | | HMO [place] | | | | | | + +--------+ +--------+ +---------+--------+ + +--------+ +--------+ + + | Guarantor Name | Accoun | Relation to | Date | Phone | Billing Address | | | t Type | Patient | of | | | | | | | | | | + +--------+ +--------+ + + | Eliud Stafford | Person | Self | [birth year] | [address] | | | al/Fam | | 1960 | [phone] | [place] [address] | | | branden | | | 5 (Home) | | + +--------+ +--------+ + + | Eliud Stafford | Third | Self | [birth year] | [address] | | | Green Party | | 1960 | [phone] | [place] [address] | | | Liabil | | | 5 ([place]) | | | | ity | | | | | + +--------+ +--------+ + + Advance Directives + + + + + | Type | Date Recorded | Patient | Explanation | | | | School Nurse | | + + + + + | Power of | | | | | Regulatory Lead | | | | + + + + + | Advance | | | | | Directive | | | | + + + + +
--- OUTSIDE RECORDS SUMMARY | ~2019-03-28 | XMS | Clinical Summary ---
Demographics + + + | Address | [address] | | | [place] [address] | + + + | Home Phone | | + + + | Preferred Language | Unknown | + + + | Marital Status | | + + + | Jew Affiliation | Unknown | + + + | Race | Unknown | + + + | Ethnic Group | Unknown | + + + Author + + + | Author | [facility] (Historical as of | | | 12-08-18) | + + + | Organization | [facility] (Historical as of | | | 12-08-18) | + + + | Address | Unknown | + + + | Phone | Unavailable | + + + Support + + + + + | Name | Relationship | Address | Phone | + + + + + | Suzie Stafford | ECON | [address] | | | | | [place] | | | | | [address] | | + + + + + Care Team Providers + +------+ + | Care Subsurface Augmentee Elint Operator Name | Role | Phone | + +------+ + | Enmanuel Rascon DO | PP | | + +------+ + Allergies Not on File Current Medications Not on file Active Problems Not on file Social History + +-------+ +--------+------+ | Tobacco [...] on file | | + + + Plan of Treatment Not on file Results Not on filefrom Last 3 Months"
--- OUTSIDE RECORDS SUMMARY | ~2019-03-28 | XMS | Encounter Summary ---
Demographics + + + | Address | [address] | | | [place] [address] | + + + | Home Phone | | + + + | Preferred Language | Unknown | + + + | Marital Status | | + + + | Orthodoxy Affiliation | Unknown | + + + | Race | Unknown | + + + | Ethnic Group | Unknown | + + + Author + + + | Author | [facility] | | | and [place] | + + + | Organization | [facility] | | | and [place] | + + + | Address | Unknown | + + + | Phone | Unavailable | + + + Support + + + + + | Name | Relationship | Address | Phone | + + + + + | Suzie Stafford | ECON | [address] | | | | | [place], [place] | | | | | [address] | | + + + + + Care Team Providers + +------+ + | Care Meat Pickler Name | Role | Phone | + +------+ + | Gutierrez Jenkins PA-C | PCP | | + +------+ + Encounter Details +--------+ + + + + | Date | Type | Department | Care Team | Description | +--------+ + + + + | 02/08/ | Abstract | [facility] | Efrain Pettit | | | 2012 | | [address] | MD [address] | | | | | [place], | [address] | | | | | [place] [address] | [place] [address] | | | | | [phone] | [phone] | | | | | | | [...] | + +--------+ + + + | EXTERNAL LAB: MARIO ALBERTO | Routin | 02/06/2013 | | Results for this | | | e | | | procedure are in the | | | | | | results section. | + +--------+ + + + | EXTERNAL LAB: JACQUELIN | Routin | 02/06/2013 | | Results for this | | | e | | | procedure are in the | | | | | | results section. | + +--------+ + + + | EXTERNAL LAB: TSH | Routin | 02/06/2013 | | Results for this | | | e | | | procedure are in the | | | | | | results section. | + +--------+ + + + | EXTERNAL LAB: | Routin | 02/06/2013 | | Results for this | | CHOLESTEROL, NON HDL | e | | | procedure are in the | | LP | | | | results section. | + +--------+ + + + | EXTERNAL LAB: | Routin | 02/06/2013 | | Results for this | | TRIGLYCERIDES | e | | | procedure are in the | | | | | | results section. | + +--------+ + + + | EXTERNAL LAB: | Routin | 02/06/2013 | | Results for this | | CHOLESTEROL, HDL | e | | | procedure are in the | | | | | | results section. | + +--------+ + + + | EXTERNAL LAB: | Routin | 02/06/2013 | | Results for this | | CHOLESTEROL, TOTAL | e | | | procedure are in the | | | | | | results section. | + +--------+ + + + | EXTERNAL LAB: | Routin | 02/06/2013 | | Results for this | | CHOLESTEROL, LDL | e | | | procedure are in the | | | | | | results section. | + +--------+ + + + | EXTERNAL LAB: EGFR | Routin | 02/06/2013 | | Results for this | | | e | | | procedure are in the | | | | | | results section. | + +--------+ + + + | EXTERNAL LAB: | Routin | 02/06/2013 | | Results for this | | CREATININE | e | | | procedure are in the | | | | | | results section. | + +--------+ + + + | LIPID PANEL | Routin | 02/06/2013 | | Results for this | | | e | | | procedure are in the | | | | | | results section. | + +--------+ + + + | HEPATIC FUNCTION | Routin | 02/06/2013 | | Results for this | | PANEL | e | | | procedure are in the | | | | | | results section. | + +--------+ + + + | BASIC METABOLIC | Routin | 02/06/2013 | | Results for this | | PANEL | e | | | procedure are in the | | | | | | results section. | + +--------+ + + + documented in this encounter Results Lipid Panel (02/06/2013) + +---------+ + + + | Component | Value | Ref Range | Performed | Pathologist | | | | | At | Signature | + +---------+ + + + | VLDL | 27 | | | | | Cholesterol | | | | | | Lex | | | | | + +---------+ + + + | Chol/HDL | 5.9 (A) | 5.0 | | | | Ratio | | | | | + +---------+ + + + + + | Specimen | + + | Blood specimen | | (specimen) | + + Basic Metabolic Panel (02/06/2013) + +-------+ + + + | Component | Value | Ref Range | Performed | Pathologist | | | | | At | Signature | + +-------+ + + + | Na | 136 | mmol/L | [facility] | | [facility] | | | [facility] - | | | | | | [facility] | | + +-------+ + + + | K | 4.0 | mmol/L | [facility] | | | | | | [facility] | | | | [facility] - | | | | | | LAB[facility]ATORY | | + +-------+ + + + | Chloride | 105 | | [facility] | | | | | | [facility] | | | | | [facility] - | | | | | | LAB[facility]ATORY | | + +-------+ + + + | CO2 | 22 | mmol/L | [facility] | | [facility] | | [facility] | | | [facility] | | | | | [facility] - | | | | | | LAB[facility]ATORY | | + +-------+ + + + | Anion Gap | 13 | mmol/L | [facility] | | | [facility] | | | | | | [facility] | | | | | [facility] - | | | | | | LAB[facility]ORY | | + +-------+ + + + | Glucose | 82 | mg/dL | [facility] | | [facility] | | | | | | [facility] | | | | | [facility] - | | | | | | LAB[facility]ATORY | | + +-------+ + + + | Calcium | 9.9 | mg/dL | [facility] | | [facility] | | | | | | [facility] | | | | | [facility] - | | | | | | LAB[facility]ATORY | | + +-------+ + + + | BUN | 10 | mg/dL | [facility] | | | [facility] | | | | | | [facility] | | | | | [facility] - | | | | | | LAB[facility]ATORY | | + +-------+ + + + | Bun/Creatin | 12.2 | | [facility] | | | ine | | | [facility] | | | | | | [facility]ICAL | | | | | | CENTER - | | | | | | LABORATORY | | + +-------+ + + + + + | Specimen | + + | Blood specimen | | (specimen) | + + + + + + + | Performing | Address | City/State/Zipcode | Phone Number | | Organization | | | | + + + + + | [facility] | [address] | [place] | | | [facility] | | [address] | | | - LABORATORY | | | | + + + + + Hepatic Function Panel (02/06/2013) + +-------+ + + + | Component | Value | Ref Range | Performed | Pathologist | | | | | At | Signature | + +-------+ + + + | Total | 7.6 | 6.1 - 8.4 g/dL | [facility] | | | Protein | | | [facility] | | [facility] | | | [facility] | | | | | [facility] - | | | | | | LABORATORY | | + +-------+ + + + | Albumin | 5.0 | 3.5 - 5.0 g/dL | [facility] | | | | | | [facility] | | | | | | [facility] | | | | | | [facility] - | | | | | | LABORATORY | | + +-------+ + + + | Globulin | 2.6 | | [facility] | | | | | [facility] | | | [facility] | | [facility] | | | | | | [facility] - | | | | | | LABORATORY | | + +-------+ + + + | Albumin/Neha | 1.9 | | [facility] | | | bulin Ratio | | | [facility] | | | | | | [facility] | | | | | | CENTER - | | | | | | LABORATORY | | + +-------+ + + + | Bilirubin | 0.7 | 0.1 - 1.5 mg/dL | [facility] | | | Total | | | [facility] | | | | | | [facility] | | | | | | CENTER - | | | | | | LABORATORY | | + +-------+ + + + | Bilirubin | 0.1 | mg/dL | [facility] | | | Direct | | | [facility] | | | | | | [facility] | | | | | | CENTER - | | | | | | LABORATORY | | + +-------+ + + + | BILIRUBIN | 0.6 | mg/dL | [facility] | | | INDIRECT | | | [facility] | | | | | | [facility]ICAL | | | | | | CENTER - | | | | | | LABORATORY | | + +-------+ + + + | Alkaline | 65 | 35 - 115 U/L | [facility] | | | Phosphatase | | | [facility] | | | | | | MEDICAL | | | | | | CENTER - | | | | | | LABORATORY | | + +-------+ + + + + + | Specimen | + + | Blood specimen | | (specimen) | + + + + + + + | Performing | Address | City/State/Zipcode | Phone Number | | Organization | | | | + + + + + | [facility] | [address] | [place] | | | [facility] | | [address] | | | - LABORATORY | | | | + + + + + External Lab: AST (02/06/2013) + +-------+ + + + | Component | Value | Ref Range | Performed | Pathologist | | | | | At | Signature | + +-------+ + + + | AST, | 19 | 0 - 40 | EXTERNAL | | | External | | | LAB | | + +-------+ + + + + + | Specimen | + + | Blood specimen | | (specimen) | + + + + | Resulting Agency Comment | + + | [facility] | + + + +---------+ + + | Performing | Address | City/State/Zipcode | Phone Number | | Organization | | | | + +---------+ + + | EXTERNAL LAB | | | | + +---------+ + + External Lab: ALT (02/06/2013) + +-------+ + + + | Component | Value | Ref Range | Performed | Pathologist | | | | | At | Signature | + +-------+ + + + | ALT, | 27 | 0 - 46 | EXTERNAL | | | External | | | LAB | | + +-------+ + + + + + | Specimen | + + | Blood specimen | | (specimen) | + + + + | Resulting Agency Comment | + + | [facility] | + + + +---------+ + + | Performing | Address | City/State/Zipcode | Phone Number | | Organization | | | | + +---------+ + + | EXTERNAL LAB | | | | + +---------+ + + External Lab: TSH (02/06/2013) + +-------+ + + + | Component | Value | Ref Range | Performed | Pathologist | | | | | At | Signature | + +-------+ + + + | TSH, | 1.77 | 0.27 - 4.2 | EXTERNAL | | | External | | | LAB | | + +-------+ + + + + + | Specimen | + + | Blood specimen | | (specimen) | + + + + | Resulting Agency Comment | + + | [facility] | + + + +---------+ + + | Performing | Address | City/State/Zipcode | Phone Number | | Organization | | | | + +---------+ + + | EXTERNAL LAB | | | | + +---------+ + + External Lab: Cholesterol, Non HDL LP (02/06/2013) + +---------+ + + + | Component | Value | Ref Range | Performed | Pathologist | | | | | At | Signature | + +---------+ + + + | Cholesterol | 140 (A) | 130 | EXTERNAL | | | , Total, | | | LAB | | | Non HDL-C | | | | | | (LDL+VLDL), | | | | | | External | | | | | + +---------+ + + + + + | Specimen | + + | Blood specimen | | (specimen) | + + + + | Resulting Agency Comment | + + | [facility] | + + + +---------+ + + | Performing | Address | City/State/Zipcode | Phone Number | | Organization | | | | + +---------+ + + | EXTERNAL LAB | | | | + +---------+ + + External Lab: Triglycerides (02/06/2013) + +-------+ + + + | Component | Value | Ref Range | Performed | Pathologist | | | | | At | Signature | + +-------+ + + + | Triglycerid | 136 | 30 - 150 | EXTERNAL | | | es, | | | LAB | | | External | | | | | + +-------+ + + + + + | Specimen | + + | Blood specimen | | (specimen) | + + + + | Resulting Agency Comment | + + | [facility] | + + + +---------+ + + | Performing | Address | City/State/Zipcode | Phone Number | | Organization | | | | + +---------+ + + | EXTERNAL LAB | | | | + +---------+ + + External Lab: Cholesterol, HDL (02/06/2013) + + + + + + | Component | Value | Ref Range | Performed | Pathologist | | | | | At | Signature | + + + + + + | HDL | 28.5 (A) | 40 | EXTERNAL | | | Cholesterol | | | LAB | | | , External | | | | | + + + + + + + + | Specimen | + + | Blood specimen | | (specimen) | + + + + | Resulting Agency Comment | + + | [facility] | + + + +---------+ + + | Performing | Address | City/State/Zipcode | Phone Number | | Organization | | | | + +---------+ + + | EXTERNAL LAB | | | | + +---------+ + + External Lab: Cholesterol, Total (02/06/2013) + +-------+ + + + | Component | Value | Ref Range | Performed | Pathologist | | | | | At | Signature | + +-------+ + + + | Cholesterol | 168 | 200 | EXTERNAL | | | , Total, | | | LAB | | | External | | | | | + +-------+ + + + + + | Specimen | + + | Blood specimen | | (specimen) | + + + + | Resulting Agency Comment | + + | [facility] | + + + +---------+ + + | Performing | Address | City/State/Zipcode | Phone Number | | Organization | | | | + +---------+ + + | EXTERNAL LAB | | | | + +---------+ + + External Lab: Cholesterol, LDL (02/06/2013) + +---------+ + + + | Component | Value | Ref Range | Performed | Pathologist | | | | | At | Signature | + +---------+ + + + | LDL | 112 (A) | 100 | EXTERNAL | | | Cholesterol | | | LAB | | | , Direct, | | | | | | External | | | | | + +---------+ + + + + + | Specimen | + + | Blood specimen | | (specimen) | + + + + | Resulting Agency Comment | + + | [facility] | + + + +---------+ + + | Performing | Address | City/State/Zipcode | Phone Number | | Organization | | | | + +---------+ + + | EXTERNAL LAB | | | | + +---------+ + + External Lab: eGFR (02/06/2013) + +-------+ + + + | Component | Value | Ref Range | Performed | Pathologist | | | | | At | Signature | + +-------+ + + + | eGFR, | >60 | | EXTERNAL | | | External | | | LAB | | + +-------+ + + + | eGFR, | | | EXTERNAL | | | | | | LAB | | | [place], | | | | | | External | | | | | + +-------+ + + + + + | Specimen | + + | Blood specimen | | (specimen) | + + + + | Resulting Agency Comment | + + | [facility] | + + + +---------+ + + | Performing | Address | City/State/Zipcode | Phone Number | | Organization | | | | + +---------+ + + | EXTERNAL LAB | | | | + +---------+ + + External Lab: Creatinine (02/06/2013) + +-------+ + + + | Component | Value | Ref Range | Performed | Pathologist | | | | | At | Signature | + +-------+ + + + | Creatinine, | 0.82 | 0.5 - 1.5 | EXTERNAL | | | External | | | LAB | | + +-------+ + + + + + | Specimen | + + | Blood specimen | | (specimen) | + + + + | Resulting Agency Comment | + + | [facility] | + + + +---------+ + + | Performing | Address | City/State/Zipcode | Phone Number | | Organization | | | | + +---------+ + + | EXTERNAL LAB | | | | + +---------+ + + documented in this encounter Visit Diagnoses Not on filedocumented in this encounter"
--- OUTSIDE RECORDS SUMMARY | ~2019-03-28 | XMS | Encounter Summary ---
Demographics + + + | Address | [address] | | | [place] [address] | + + + | Home Phone | | + + + | Preferred Language | Unknown | + + + | Marital Status | | + + + | Baptist Affiliation | Unknown | + + + | Race | Unknown | + + + | Ethnic Group | Unknown | + + + Author + + + | Author | [facility] | | | and [place] | + + + | Organization | [facility] | | | and [place] | + + + | Address | Unknown | + + + | Phone | Unavailable | + + + Support + + + + + | Name | Relationship | Address | Phone | + + + + + | Suzie Stafford | ECON | [address] | | | | | [place], [place] | | | | | [address] | | + + + + + Care Team Providers + +------+ + | Care Aboriginal Community Council Member Name | Role | Phone | + +------+ + PCP | Unavailable | + +------+ + Encounter Details +--------+ + + + + | Date | Type | Department | Care Team | Description | +--------+ + + + + | 04/13/ | [facility] | [facility] | [facility] [place] | | | 2008 | Encounter | [facility] | Kota Carl MD [address] | | | | | [place] [address] | [facility] | | | | | [place] | [place] [address] | | | | | [address] | [phone] | | | | | [phone] | | | +--------+ + + + [...]
--- OUTSIDE RECORDS SUMMARY | ~2019-03-28 | XMS | Encounter Summary ---
Demographics + + + | Address | [address] | | | [place] [address] | + + + | Home Phone | | + + + | Preferred Language | Unknown | + + + | Marital Status | | + + + | Spiritism Affiliation | Unknown | + + + | Race | Unknown | + + + | Ethnic Group | Unknown | + + + Author + + + | Author | [facility] | | | and [place] | + + + | Organization | [facility] | | | and [place] | + + + | Address | Unknown | + + + | Phone | Unavailable | + + + Support + + + + + | Name | Relationship | Address | Phone | + + + + + | Suzie Stafford | ECON | [address] | | | | | [place] | | | | | [address] | | + + + + + Care Team Providers + +------+ + | Care Living Supervisor Name | Role | Phone | + +------+ + | Gutierrez Jenkins PA-C | PCP | | + +------+ + Reason for Visit + + + | Reason | Comments | + + + | Appointment | | + + + Encounter Details +--------+ + + + + | Date | Type | Department | Care Team | Description | +--------+ + + + + | 02/21/ | Telephone | [facility] | [facility] | Appointment | | 2012 | | [address] | MD [address] | | | | | [place], | [address] [place] | | | | | [place] [address] | [place] [address] | | | | | [phone] | [phone] | | | | | | | [...]
--- OUTSIDE RECORDS SUMMARY | ~2019-03-28 | XMS | Encounter Summary ---
Demographics + + + | Address | [address] | | | [place] [address] | + + + | Home Phone | | + + + | Preferred Language | Unknown | + + + | Marital Status | | + + + | Oriental Orthodox Affiliation | Unknown | + + + | Race | Unknown | + + + | Ethnic Group | Unknown | + + + Author + + + | Author | [facility] | | | and [place] | + + + | Organization | [facility] | | | and [place] | + + + | Address | Unknown | + + + | Phone | Unavailable | + + + Support + + + + + | Name | Relationship | Address | Phone | + + + + + | Suzie Stafford | ECON | [address] | | | | | [place] | | | | | [address] | | + + + + + Care Team Providers + +------+ + | Care Graphite Disk Assembler Name | Role | Phone | + [...] [address] | | | | | [phone] | [address] | | | | | | [place] [address] | | | | | | [phone] | | | | | | | [...]
--- OUTSIDE RECORDS SUMMARY | ~2019-03-28 | XMS | Encounter Summary ---
Demographics + + + | Address | [address] | | | [place] [address] | + + + | Home Phone | | + + + | Preferred Language | Unknown | + + + | Marital Status | | + + + | Roman Catholic Affiliation | Unknown | + + + | Race | Unknown | + + + | Ethnic Group | Unknown | + + + Author + + + | Author | [facility] | | | and [place] | + + + | Organization | [facility] | | | and [place] | + + + | Address | Unknown | + + + | Phone | Unavailable | + + + Support + + + + + | Name | Relationship | Address | Phone | + + + + + | Suzie Stafford | ECON | [address] | | | | | [place], [place] | | | | | [address] | | + + + + + Care Team Providers + +------+ + | Care Condenser Cleaner Name | Role | Phone | + +------+ + PCP | Unavailable | + +------+ + Encounter Details +--------+ + + + + | Date | Type | Department | Care Team | Description | +--------+ + + + + | [facility] | Efrain Caraballo | | | 2011 | Encounter | MED CTR XRAY [address] | MD Gonz[address]lez [address] | | | | | [place] | [place] | | | | | [place] [address] | [place] [address] | | | | | [phone] | | | | | | | [...] Performed At | + + + | [facility] Diagnostic Imaging Department | [facility] | | [address] [facility] [address] | [facility] | | BILATERAL DUPLEX CAROTID | DIAG [...] Transcribed Date/Time: 11/21/2011 11:26 | | | Healthcare Marketer: <Electronically Signed by Yossi Fay MD> | | | 11/21/11 2149 | | + + + + + | Procedure Note | + + | Deepak, Raul Conversion - 05/31/2013 5:[address] [facility] | | Diagnostic Imaging Department | | [address], [place] | | | | | | [...] | Transcribed Date/Time: 11/21/2011 11:26 | | Healthcare Marketer: | | <Electronically Signed by Yossi Fay MD> 11/21/11 2878 | + + + +---------+ + + [...] Performed At | + + + | [facility] Diagnostic Imaging Department | [facility] | | [address] [facility] | [facility] | | E C H O C A R D | DIAG IMG | | I O G R A P H Y R E P O R T HEIGHT: 5'10" | | | WEIGHT: 195# LIME HIDE INSPECTOR: JW REFERRING DR: RASHMI | | | [...] Transcribed Date/Time: 11/21/2011 16:54 | | | Healthcare Marketer: <Electronically Signed by Siddhartha Caraballo, | | | MD> 11/25/11 0922 | | + + + + + | Procedure Note | + + | Deepak, Rad Conversion - 05/31/2013 5:[address] [facility] | | Diagnostic Imaging Department | | [address] | | | | | | | | E C H O C A R D I O G R A P H Y R E P O R T | | | | | | HEIGHT: 5'10" WEIGHT: 195# LIME HIDE INSPECTOR: JW | | REFERRING DR: RASHMI MAGAÑA [...] | Transcribed Date/Time: 11/21/2011 16:54 | | Healthcare Marketer: | | <Electronically Signed by Siddhartha Caraballo [...]
--- OUTSIDE RECORDS SUMMARY | ~2019-03-28 | XMS | Encounter Summary ---
Demographics + + + | Address | [address] | | | [place] [address] | + + + | Home Phone | | + + + | Preferred Language | Unknown | + + + | Marital Status | | + + + | Adventism Affiliation | Unknown | + + + | Race | Unknown | + + + | Ethnic Group | Unknown | + + + Author + + + | Author | [facility] | | | and [place] | + + + | Organization | [facility] | | | and [place] | + + + | Address | Unknown | + + + | Phone | Unavailable | + + + Support + + + + + | Name | Relationship | Address | Phone | + + + + + | Suzie Stafford | ECON | [address] | | | | | [place], [place] | | | | | [address] | | + + + + + Care Team Providers + +------+ + | Care Periodicals Clerk Name | Role | Phone | + +------+ + PCP | Unavailable | + +------+ + Encounter Details +--------+ + + + + | Date | Type | Department | Care Team | Description | +--------+ + + + + | 11/21/ | [facility] | [facility] | Efrain Pettit | | | 2011 | Encounter | MED CTR XRAY [address] | MD Gonz[address]lez [address] | | | | | [place] | [place] | | | | | [place] [address] | [place], [place] [address] | | | | | [phone] | [phone] | | | | | | | [...] | + +--------+ + + + | BUN | Routin | 11/22/2011 | | Results for this | | | e | 9:27 AM | | procedure are in the | | | | PDT | | results section. | + +--------+ + + + | CREATININE | Routin | 11/22/2011 | | Results for this | | | e | 9:27 AM | | procedure are in the | | | | PDT | | results section. | + +--------+ + + + | CV DIAGNOSTIC | | 11/22/2011 | | Results for this | | CARDIAC CATH | | 7:24 AM | | procedure are in the | | | | PDT | | results section. | + +--------+ + + + documented in this encounter Results Creatinine (11/22/2011 9:27 AM PDT) + + + + + + | Component | Value | Ref Range | Performed | Pathologist | | | | | At | Signature | + + + + + + | Creatinine | 0.65 | 0.60 - 1.30 | [facility] | | | | | mg/dL | [facility] | | | | | | [facility] | | | | | | [facility] - | | | | | | LABORATORY | | + + + + + + | Estimated | >60Comment: For | >60 mL/min/A | [facility] | | | GFR | -Americans, | | [facility] | | | | please multiply the | | MEDICAL | | | | result by 1.210 | | CENTER - | | | | This is an estimated | | LABORATORY | | | | GFR and is based on a | | | | | | standard adult | | | | | | body mass (A=1.73m2) and | | | | | | serum creatinine | | | | + + + + + + + + | Specimen | + + | | + + + + + + + | Performing | Address | City/State/Zipcode | Phone Number | | Organization | | | | + + + + + | [facility] | [address] | [place] | [phone] | | [facility] | | [address] | | | - LABORATORY | | | | + + + + + | [facility] | [address] | [address] | | | [facility] | | [address] | | | - LABORATORY | | | | + + + + + BUN (11/22/2011 9:27 AM PDT) + +-------+ + + + | Component | Value | Ref Range | Performed | Pathologist | | | | | At | Signature | + +-------+ + + + | BUN | 11 | 7 - 18 mg/dL | [facility] | | | | | | [facility] | | | | | | MEDICAL [...] + + | [facility] | [address] | [place] | [phone] | | [facility] | | [address] | | | - LABORATORY | | | | + + + + + | [facility] | [address] | [place] | | | [facility] | | [address] | | | - LABORATORY | | | | + + + + + CV Adult Cardiac Cath Diag/PCI (11/22/2011 7:24 AM PDT) + + | Specimen | + + | | + + + + + | Narrative | Performed At | + + + | [facility] Diagnostic Imaging Department | [facility] | | [address] | [facility] | | CARDIAC CATHETERIZATION | DIAG IMG | | LABORATORY NOTE, 11/22/2011 CLINICAL HISTORY: CHEST PAIN, | | | CORONARY ARTERY DISEASE. PROCEDURE: After informed consent | | | was obtained, the patient was taken to the cardiac catheterization | | | laboratory where he was prepared and draped in the usual fashion. | | | Under sterile technique and local anesthesia, percutaneous access | | | was obtained using #6 Vincentian sheath in the right femoral artery. Le | | | ft heart catheterization and left ventriculography were then | | | performed in this patient. Selective co ronary angiography was then | | | performed in several sagittal and oblique projections using #6 Vincentian | | | JL 4 and #6 Vincentian JR 4 diagnostic catheters. The patient | | | received a total of 139 mL of Isovue-370 cont rast. He also | | | received a total of 3 mg of Versed and 150 mcg of fentanyl | | | intravenously for conscious sedation. The procedure was not | | | complicated. At the conclusion of the procedure, the catheter and | | | sheath were removed. Arterial stasis was obtained using Angio-Seal | | | deployment through the puncture s ite of the right femoral artery. | | | Distal pulses were present and unchanged. HEMODYNAMICS: | | | Aortic pressure was 167/66 (89). Left ventricular pressure was | | | 122/0 (9). There was no gradient on catheter pullback from the | | | left ventricle through the aorta. CORONARY ANGIOGRAPHY: | | | LEFT MAIN CORONARY ARTERY: The left main coronary artery is an | | | intermediate-sized vessel that arises in the usual fashion lateral | | | from the left coronary cusp and bifurcates into the LAD and left | | | circum flex coronary arteries. There were no lesions noted. | | | LEFT ANTERIOR DESCENDING CORONARY ARTERY: The left anterior | | | descending artery is a large caliber ves olga that courses in the | | | usual fashion anteriorly at the left ventricle and terminates after | | | wrapping 1 left ventricular apex. It gives rise to 2 | | | moderate-sized diagonal branches and numerous septal per forator | | | branches. In its mid portion, there is a tubular section of moderate | | | length which exhibits m ild diffuse plaquing with stenosis in the | | | range of only 20-30%, otherwise, there are no lesions noted | | | throughout the system. LEFT CIRCUMFLEX CORONARY ARTERY: The | | | left circumflex coronary artery is a bifid system that supplies the | | | lateral myocardium in the usual fashion and is nondominant. There | | | are no significant lesions se en. RIGHT CORONARY ARTERY: The | | | right coronary artery is a large dominant vessel that arises in the | | | usual fashion from the right coronary cusp. It gives rise to a | | | posterior descending coronary artery and a posterolateral branch. | | | No significant lesions are noted. LEFT VENTRICULOGRAM: The | | | left ventriculogram shows normal left ventricular end diastolic and | | | end sys tolic dimensions with normal regional contractility and | | | systolic function. Ejection fraction was est imated in the range of | | | 65-70%. No significant mitral regurgitation is seen. | | | IMPRESSION: 1. RIGHT DOMINANT CORONARY CIRCULATION. 2. | | | MILD TUBULAR LESION NOTED IN THE MID LAD UNCHANGED FROM PATIENT'S | | | PREVIOUS CORONARY ANGIOGRAM WIT HOUT ANY SIGNIFICANT OR FLOW-LIMITING | | | LESIONS NOTED THROUGHOUT. 3. PRESERVED LV SYSTOLIC FUNCTION | | | WITH AN LVEF IN THE RANGE OF 65%. 4. CONTINUED MEDICAL | | | THERAPY AND RISK FACTOR REDUCTION. 5. TOBACCO CESSATION | | | REINFORCED. PATIENT STATES THAT HE QUIT SMOKING APPROXIMATELY 2 | | | WEEKS AGO OSEAS Larkin NICOTINE PATCH. Dictated Date/Time: | | | 11/22/2011 10:22 Transcribed Date/Time: 11/22/2011 11:26 | | | Measurement Advisor: <Electronically Signed by Siddhartha Pettit, | | | MD> 11/25/11 0922 | | + + + + + | Procedure Note | + + | Raul Sotelo Conversion - 05/31/2013 5:47 PM [facility] | | Diagnostic Imaging Department [address] [facility] | | CARDIAC CATHETERIZATION LABORATORY NOTE, 11/22/2011 | | CLINICAL HISTORY: CHEST PAIN, CORONARY ARTERY DISEASE. PROCEDURE: After informed | | consent was obtained, the patient was taken to the cardiac catheterization laboratory | | where he was prepared and draped in the usual fashion. Under sterile technique and | | local anesthesia, percutaneous access was obtained using #6 Vincentian sheath in the right | | femoral artery. Left heart catheterization and left ventriculography were then | | performed in this patient. Selective coronary angiography was then performed in several | | sagittal and oblique projections using #6 Vincentian JL 4 and #6 Vincentian JR 4 diagnostic | | catheters. The patient received a total of 139 mL of Isovue-370 contrast. He also | | received a total of 3 mg of Versed and 150 mcg of fentanyl intravenously for conscious | | sedation. The procedure was not complicated. At the conclusion of the procedure, the | | catheter and sheath were removed. Arterial stasis was obtained using Angio-Seal | | deployment through the puncture site of the right femoral artery. Distal pulses were | | present and unchanged. HEMODYNAMICS: Aortic pressure was 167/66 (89). Left | | ventricular pressure was 122/0 (9). There was no gradient on catheter pullback from the | | left ventricle through the aorta. CORONARY ANGIOGRAPHY: LEFT MAIN CORONARY ARTERY: | | The left main coronary artery is an intermediate-sized vessel that arises in the usual | | fashion lateral from the left coronary cusp and bifurcates into the LAD and left | | circumflex coronary arteries. There were no lesions noted. LEFT ANTERIOR DESCENDING | | CORONARY ARTERY: The left anterior descending artery is a large caliber vessel that | | courses in the usual fashion anteriorly at the left ventricle and terminates after | | wrapping 1 left ventricular apex. It gives rise to 2 moderate-sized diagonal branches | | and numerous septal card fixer branches. In its mid portion, there is a tubular section | | of moderate length which exhibits mild diffuse plaquing with stenosis in the range of | | only 20-30%, otherwise, there are no lesions noted throughout the system. LEFT | | CIRCUMFLEX CORONARY ARTERY: The left circumflex coronary artery is a bifid system that | | supplies the lateral myocardium in the usual fashion and is nondominant. There are no | | significant lesions seen. RIGHT CORONARY ARTERY: The right coronary artery is a large | | dominant vessel that arises in the usual fashion from the right coronary cusp. It gives | | rise to a posterior descending coronary artery and a posterolateral branch. No | | significant lesions are noted. LEFT VENTRICULOGRAM: The left ventriculogram shows | | normal left ventricular end diastolic and end systolic dimensions with normal regional | | contractility and systolic function. Ejection fraction was estimated in the range of | | 65-70%. No significant mitral regurgitation is seen. IMPRESSION:1. RIGHT DOMINANT | | CORONARY CIRCULATION. 2. MILD TUBULAR LESION NOTED IN THE MID LAD UNCHANGED FROM | | PATIENT'S PREVIOUS CORONARY ANGIOGRAM WITHOUT ANY SIGNIFICANT OR FLOW-LIMITING LESIONS | | NOTED THROUGHOUT. 3. PRESERVED LV SYSTOLIC FUNCTION WITH AN LVEF IN THE RANGE OF 65%. | | 4. CONTINUED MEDICAL THERAPY AND RISK FACTOR REDUCTION. 5. TOBACCO CESSATION | | REINFORCED. PATIENT STATES THAT HE QUIT SMOKING APPROXIMATELY 2 WEEKS AGO USING | | NICOTINE PATCH. Dictated Date/Time: 11/22/2011 10:22Transcribed Date/Time: | | 11/22/2011 11:26Transcriptionist: <Electronically Signed by Siddhartha Pettit MD> | | 11/25/11 0922 | | | |LEFT VENTRICULOGRAM: The left ventriculogram shows normal left ventricular end diastolic a nd end sys | |tolic dimensions with normal regional contractility and systolic function. Ejection fracti on was est | |imated in the range of 65-70%. No significant mitral regurgitation is seen. | | | |IMPRESSION: | |1. RIGHT DOMINANT CORONARY CIRCULATION. | | | |2. MILD TUBULAR LESION NOTED IN THE MID LAD UNCHANGED FROM PATIENT'S PREVIOUS CORONARY ANG IOGRAM WIT | |HOUT ANY SIGNIFICANT OR FLOW-LIMITING LESIONS NOTED THROUGHOUT. | | | |3. PRESERVED LV SYSTOLIC FUNCTION WITH AN LVEF IN THE RANGE OF 65%. | | | |4. CONTINUED MEDICAL THERAPY AND RISK FACTOR REDUCTION. | | | |5. TOBACCO CESSATION REINFORCED. PATIENT STATES THAT HE QUIT SMOKING APPROXIMATELY 2 WEEK S AGO USIN | |G NICOTINE PATCH. | | | |Dictated Date/Time: 11/22/2011 10:22 | |Transcribed Date/Time: 11/22/2011 11:26 | |Measurement Advisor: | |<Electronically Signed by Siddhartha Pettit MD> 11/25/11 0922 | + + + +---------+ + + | Performing | Address | City/State/Zipcode | Phone Number | | Organization | | | | + +---------+ + + | [place] | | | | | [place] | | | | + +---------+ + + documented in this encounter Visit Diagnoses Not on filedocumented in this encounter"
--- OUTSIDE RECORDS SUMMARY | ~2019-03-28 | XMS | Encounter Summary ---
Demographics + + + | Address | [address] | | | [place] [address] | + + + | Home Phone | | + + + | Preferred Language | Unknown | + + + | Marital Status | | + + + | Samaritan Affiliation | Unknown | + + + | Race | Unknown | + + + | Ethnic Group | Unknown | + + + Author + + + | Author | [facility] | | | and [place] | + + + | Organization | [facility] | | | and [place] | + + + | Address | Unknown | + + + | Phone | Unavailable | + + + Support + + + + + | Name | Relationship | Address | Phone | + + + + + | Suzie Stafford | ECON | [address] | | | | | [place] | | | | | [address] | | + + + + + Care Team Providers + +------+ + | Care Yacht Captain Name | Role | Phone | + [...] (Primary Dx); CAD | | | | [place], | [address] [place] | (coronary artery | | | | [place] [address] | [place] [address] | disease) | | | | [phone] | [phone] | | | | | | | [...] [address] | [place] | [phone] | | [facility] | | [address] | | | - LABORATORY | | | | + + + + + | [facility] | [address] | [place], [place] | | | [facility] | | [address] | | | - LABORATORY | | | | + + + + + documented in this encounter Visit Diagnoses + + | Diagnosis | + + | Hyperlipidemia - Primary Other and unspecified hyperlipidemia | + + | CAD (coronary artery disease) Coronary atherosclerosis of unspecified type of vessel, | | tyonek or graft | + + documented in this encounter"
--- OUTSIDE RECORDS SUMMARY | ~2019-03-28 | XMS | Encounter Summary ---
Demographics + + + | Address | [address] | | | [place] [address] | + + + | Home Phone | | + + + | Preferred Language | Unknown | + + + | Marital Status | | + + + | Buddhism Affiliation | Unknown | + + + | Race | Unknown | + + + | Ethnic Group | Unknown | + + + Author + + + | Author | [facility] | | | and [place] | + + + | Organization | [facility] | | | and [place] | + + + | Address | Unknown | + + + | Phone | Unavailable | + + + Support + + + + + | Name | Relationship | Address | Phone | + + + + + | Suzie Stafford | ECON | [address] | | | | | [place], [place] | | | | | [address] | | + + + + + Care Team Providers + +------+ + | Care Museum Specialist Name | Role | Phone | + +------+ + PCP | Unavailable | + +------+ + Encounter Details +--------+ + + + + | Date | Type | Department | Care Team | Description | +--------+ + + + + | 01/19/ | Hospital | [facility] | Rubin Moreira | Other Chest Pain | | 2006 | Encounter | [facility] | [address] | | | | | CARE FLOOR [address] | [address] | | | | | [address] | [address] | | | | | [place], [place] | | | | | | [address] | | | | | | [phone] | | | +--------+ + + + [...]
--- OUTSIDE RECORDS SUMMARY | ~2019-03-28 | XMS | Clinical Summary ---
Demographics + + + | Address | [address] | | | [place] [address] | + + + | Home Phone | | + + + | Preferred Language | Unknown | + + + | Marital Status | | + + + | Sabianist Affiliation | Unknown | + + + | Race | Unknown | + + + | Ethnic Group | Unknown | + + + Author + + + | Author | [facility] (Historical as of | | | 12-08-18) | + + + | Organization | [facility] (Historical as of | | | 12-08-18) [...] [place] | | | | | [address] | | + + + + + Care Team Providers + +------+ + | Care Medical Sales Name | Role | Phone | + [...]
--- OUTSIDE RECORDS SUMMARY | ~2019-03-28 | XMS | Encounter Summary ---
Demographics + + + | Address | [address] | | | [place] [address] | + + + | Home Phone | | + + + | Preferred Language | Unknown | + + + | Marital Status | | + + + | Zoroastrianism Affiliation | Unknown | + + + | Race | Unknown | + + + | Ethnic Group | Unknown | + + + Author + + + | Author | [facility] | | | and [place] | + + + | Organization | [facility] | | | and [place] | + + + | Address | Unknown | + + + | Phone | Unavailable | + + + Support + + + + + | Name | Relationship | Address | Phone | + + + + + | Suzie Stafford | ECON | [address] | | | | | [place], [place] | | | | | [address] | | + + + + + Care Team Providers + +------+ + | Care Buyer Planner Name | Role | Phone | + [...] [address] | | | | [place], | [address] [place] | | | | | [place] [address] | [place] [address] | | | | | [phone] | [phone] | | | | | | | [...] | | ine | | | [facility] [facility] | | | | | | [...] [address] | [place] | | | [facility] | | [address] | | | - LABORATORY | | [...] St | [place] | | | [facility] | | [address] | | | - LABORATORY | | [...] | | | LAB | | | [place], | | | | | | External [...]
--- OUTSIDE RECORDS SUMMARY | ~2019-03-28 | XMS | Encounter Summary ---
Demographics + + + | Address | [address] | | | [place] [address] | + + + | Home Phone [...] + | Author | [facility] | | | and [place] | + + + | Organization | [facility] | | | and [place] | + + + | Address | Unknown | + + + | Phone | Unavailable | + + + Support + + + + + | Name | Relationship | Address | Phone | + + + + + | Suzie Stafford | ECON | [address] | | | | | [place], [place] | | | | | [address] | | + + + + + Care Team Providers + +------+ + | Care Bar Back Name | Role | Phone | + +------+ + PCP | Unavailable | + +------+ + Encounter Details +--------+ + + + + | Date | Type | Department | Care Team | Description | +--------+ + + + + | 11/21/ | [facility] | [facility] | Efrain Pettit | | | 2011 | Encounter | MED CTR XRAY [address] | MD González [address] | | | | | [place] | [place] | | | | | [place] [address] | [place] [address] | | | | | [phone] | [phone] | | | | | | | [...] + | BRAD SCHWARTZ | [address] | [place] | [phone] | | [facility] | | [address] | | | - LABORATORY | | | | + + + + + | [facility] | [address] | [place] | | | [facility] | | [address] | | | - LABORATORY | | [...] + | [facility] | [address] | [place] | [phone] | | [facility] | | [address] | | | - LABORATORY | | | | + + + + + | [facility] | [address] | [place] | | | [facility] | | [address] | | | - LABORATORY | | | | + + + + + CV Adult Cardiac Cath Diag/PCI (11/22/2011 7:24 AM PDT) + + | Specimen | + + | | + + + + + | Narrative | Performed At | + + + | [facility] Diagnostic Imaging Department | [facility] | | [address] [facility] | [facility] | | CARDIAC CATHETERIZATION | DIAG IMG [...] | | | was obtained using #6 Honduran sheath in the right femoral artery. Le | | | ft heart catheterization and left ventriculography were then | | | performed in this patient. Selective co ronary angiography was then | | | performed in several sagittal and oblique projections using #6 Honduran | | | JL 4 and #6 Honduran JR 4 diagnostic catheters. The patient | [...] Transcribed Date/Time: 11/22/2011 11:26 | | | Fruit I Farmworker: <Electronically Signed by Siddhartha Pettit, | | | MD> 11/25/11 0922 | | + + + + + | Procedure Note | + + | Raul Sotelo Conversion - 05/31/2013 5:47 PM [facility] | | Diagnostic Imaging Department [address] [facility] | | CARDIAC CATHETERIZATION LABORATORY NOTE, 11/22/2011 | | CLINICAL HISTORY: CHEST PAIN, CORONARY ARTERY DISEASE. PROCEDURE: After informed | | consent was obtained, the patient was taken to the cardiac catheterization laboratory | | where he was prepared and draped in the usual fashion. Under sterile technique and | | local anesthesia, percutaneous access was obtained using #6 Honduran sheath in the right | | femoral artery. Left heart catheterization and left ventriculography were then | | performed in this patient. Selective coronary angiography was then performed in several | | sagittal and oblique projections using #6 Honduran JL 4 and #6 Honduran JR 4 diagnostic | | catheters. The [...] diagonal branches | | and numerous septal wellness program administrator branches. In its mid portion, there is [...] 10:22 | |Transcribed Date/Time: 11/22/2011 11:26 | |Fruit I Farmworker: | |<Electronically Signed by Siddhartha Pettit MD> [...]
--- OUTSIDE RECORDS SUMMARY | ~2019-03-28 | XMS | Clinical Summary ---
Demographics + + + | Address | [address] | | | [place] [address] | + + + | Home Phone | | + + + | Preferred Language | Unknown | + + + | Marital Status | | + + + | Judaism Affiliation | Unknown | + + + | Race | White | + + + | Ethnic Group | Not or | + + + Author + + + | Organization | Unknown | + + + | Address | Unknown | + + + | Phone | Unavailable | + + + Support + + + + + | Name | Relationship | Address | Phone | + + + + + | Suzie Stafford | ECON | [place] | | + + + + + Care Team Providers + +------+ + | Care Bag Mender Name | Role | Phone | + +------+ + PCP | Unavailable | + +------+ + Source Comments DANIELLE is fully live on both [facility] Ambulatory and [facility] InPatient.[facility] Allergies Not on File Medications Not on file Active Problems Not [...] | + + Last Filed Vital Signs Not on file Plan of Treatment + + + + + | Health Maintenance | Due Date | Last Done | Comments | + + + + + | Influenza (Flu) | | | | | vaccination (#1) | 9 | | | + + + + + | Pneumococcal | Aged Out | | No longer eligible | | vaccination | | | based on patient's | | | | | age to complete this | | | | | topic | + + + + + Results Not on filefrom Last 3 Months"
--- OUTSIDE RECORDS SUMMARY | ~2019-03-28 | XMS | Encounter Summary ---
Demographics + + + | Address | [address] | | | [place] [address] | + + + | Home Phone [...] | Author | [facility] | | | and [place] | + + + | Organization | [facility] | | | and [place] | + + + | Address | Unknown | + + + | Phone | Unavailable | + + + Support + + + + + | Name | Relationship | Address | Phone | + + + + + | Suzie Stafford | ECON | [address] | | | | | [place] | | | | | [address] | | + + + + + Care Team Providers + +------+ + | Care Sampler First Name | Role | Phone | + [...] + + | 02/21/ | Telephone | [facility] | WilverFlorentinEfrain | Appointment | | 2012 | | [address] | MD González [address] | | | | | [place], | [address] [place] | | | | | [place] [address] | [place] [address] | | | | | [phone] | [phone] | | | | | | | [...]
--- OUTSIDE RECORDS SUMMARY | ~2019-03-28 | XMS | Encounter Summary ---
Demographics + + + | Address | [address] | | | [place] [address] | + + + | Home Phone | | + + + | Preferred Language | Unknown | + + + | Marital Status | | + + + | Druze Affiliation | Unknown | + + + | Race | Unknown | + + + | Ethnic Group | Unknown | + + + Author + + + | Author | [facility] | | | and [place] | + + + | Organization | [facility] | | | and [place] | + + + | Address | Unknown | + + + | Phone | Unavailable | + + + Support + + + + + | Name | Relationship | Address | Phone | + + + + + | Suzie Stafford | ECON | [address] | | | | | [place] | | | | | [address] | | + + + + + Care Team Providers + +------+ + | Care Breakfast Host Name | Role | Phone | + [...] | 07/25/ | Office | [facility] | Efrain Pettit | Chest pain (Primary | | 2012 | Visit | CARDIOLOGY [address] | MD González [address] | Dx); Coronary | | | | [place], | [address] [place] | atherosclerosis due | | | | [place] [address] | [place] [address] | to lipid rich | | | | [phone] | [phone] | plaque; Dyslipidemia | | | | [...] patient's prior angiogram 5 years ago at [facility]. He also underwent transthoracic echocardiogram which showed [...] Years of Education: N/A Occupational History general maintenance engineer Disabled Social History Main Topics Smoking status: [...]
--- OUTSIDE RECORDS SUMMARY | ~2019-03-28 | XMS | Encounter Summary ---
Demographics + + + | Address | [address] | | | [place] [address] | + + + | Home Phone | | + + + | Preferred Language | Unknown | + + + | Marital Status | | + + + | Yarsani Affiliation | Unknown | + + + | Race | Unknown | + + + | Ethnic Group | Unknown | + + + Author + + + | Author | [facility] | | | and [place] | + + + | Organization | [facility] | | | and [place] | + + + | Address | Unknown | + + + | Phone | Unavailable | + + + Support + + + + + | Name | Relationship | Address | Phone | + + + + + | Suzie Stafford | ECON | [address] | | | | | [place], [place] | | | | | [address] | | + + + + + Care Team Providers + +------+ + | Care Car Dumper Name | Role | Phone | + [...] [place] | obstructive | | | | [place], | [place] | pulmonary disease) | | | | [place] [address] | [address] | (HCC) (Primary Dx); | | | | [phone] | | Mitral stenosis with | | [...]
--- OUTSIDE RECORDS SUMMARY | ~2019-03-28 | XMS | Encounter Summary ---
Demographics + + + | Address | [address] | | | [place] [address] | + + + | Home Phone | | + + + | Preferred Language | Unknown | + + + | Marital Status | | + + + | Sabianism Affiliation | Unknown | + + + | Race | Unknown | + + + | Ethnic Group | Unknown | + + + Author + + + | Author | [facility] | | | and [place] | + + + | Organization | [facility] | | | and [place] | + + + | Address | Unknown | + + + | Phone | Unavailable | + + + Support + + + + + | Name | Relationship | Address | Phone | + + + + + | Suzie Stafford | ECON | [address] | | | | | [place] | | | | | [address] | | + + + + + Care Team Providers + +------+ + | Care Photography Professor Name | Role | Phone | + +------+ + PCP | Unavailable | + +------+ + Encounter Details +--------+ + + + + | Date | Type | Department | Care Team | Description | +--------+ + + + + | 09/06/ | Hospital | [facility] | | | | 2010 | Encounter | MED CTR MP INTRA OP | | | | | | [address] | | | | | | [place] | | | | | | [address] | | | | | | [phone] | | | +--------+ + + + [...]
--- OUTSIDE RECORDS SUMMARY | ~2019-03-28 | XMS | Encounter Summary ---
Demographics + + + | Address | [address] | | | [place] [address] | + + + | Home Phone | | + + + | Preferred Language | Unknown | + + + | Marital Status | | + + + | Denominational Affiliation | Unknown | + + + | Race | Unknown | + + + | Ethnic Group | Unknown | + + + Author + + + | Author | [facility] | | | and [place] | + + + | Organization | [facility] | | | and [place] | + + + | Address | Unknown | + + + | Phone | Unavailable | + + + Support + + + + + | Name | Relationship | Address | Phone | + + + + + | Suzie Stafford | ECON | [address] | | | | | [place], [place] | | | | | [address] | | + + + + + Care Team Providers + +------+ + | Care Airport Skilled Maintenance Supervisor Name | Role | Phone | + +------+ + | Gutierrez Jenkins PA-C | PCP | | + +------+ + Encounter Details +--------+ + + + + | Date | Type | Department | Care Team | Description | +--------+ + + + + | 07/25/ | Hospital | [facility] | Efrain Pettit | Hyperlipidemia; CAD | | 2012 - | Encounter | MED CTR LABORATORY | MD González [address] | (coronary artery | | | | [address] [place] | [address] [place] | disease) | | 07/27/ | | [place] | [place] [address] | | | 2012 | | [address] | [phone] | | | | | [phone] | | | +--------+ + + + [...] | | | HYDROcodone-acetamin | mouth every 6 hours | | | | 3 | | ophen (LORTAB) | as needed. | | | | | | 7.5-500 mg per | | | | | [...] + +--------+ + + + | LIPID PROFILE | Routin | 07/25/2012 | Hyperlipidemia | Results for this | | | e | 9:08 AM | CAD (coronary artery | procedure are in the | | | | PDT | disease) | results section. | + +--------+ + + + documented in this encounter Results Lipid Profile (07/25/2012 9:08 AM PDT) + + + + + + | Component | Value | Ref Range | Performed | Pathologist | | | | | At | Signature | + + + + + + | Triglycerid | 115 | 35 - 160 mg/dL | [facility] | | | es | | | [facility] | | [...] At | + + + | | [facility] | | | - LABORATORY | + + + + + + + + | Performing | Address | City/State/Zipcode | Phone Number | | Organization | | | | + + + + + | [facility] | [address] | [place] | [phone] | | [facility] | | [address] | | | - LABORATORY | | | | + + + + + | [facility] | [address] | [place], [place] | | | [facility] | | [address] | | | - LABORATORY | | | | + + + + + documented in this encounter Visit Diagnoses + + | Diagnosis | + + | Hyperlipidemia Other and unspecified hyperlipidemia | + + | CAD (coronary artery disease) Coronary atherosclerosis of unspecified type of vessel, | | jena or graft | + + documented in this encounter"
--- OUTSIDE RECORDS SUMMARY | ~2019-03-28 | XMS | Encounter Summary ---
Demographics + + + | Address | [address] | | | [place] [address] | + + + | Home Phone | | + + + | Preferred Language | Unknown | + + + | Marital Status | | + + + | Taoist Affiliation | Unknown | + + + | Race | Unknown | + + + | Ethnic Group | Unknown | + + + Author + + + | Author | [facility] | | | and [place] | + + + | Organization | [facility] | | | and [place] | + + + | Address | Unknown | + + + | Phone | Unavailable | + + + Support + + + + + | Name | Relationship | Address | Phone | + + + + + | Suzie Stafford | ECON | [address] | | | | | [place], [place] | | | | | [address] | | + + + + + Care Team Providers + +------+ + | Care Cost Coordinator Name | Role | Phone | + +------+ + PCP | Unavailable | + +------+ + Encounter Details +--------+ + + + + | Date | Type | Department | Care Team | Description | +--------+ + + + + | 04/13/ | [facility] | [facility] | [place]inda [place] | | | 2008 | Encounter | MED CTR EMERGENCY | Kota Carl MD [address] | | | | | [place] [address] [address] | [facility] | | | | | [place] | [place] [address] | | | | | [address] | [phone] | | | | | [phone] | | | +--------+ + + + [...]
--- OUTSIDE RECORDS SUMMARY | ~2019-03-28 | XMS | Encounter Summary ---
Demographics + + + | Address | [address] | | | [place] [address] | + + + | Home Phone | | + + + | Preferred Language | Unknown | + + + | Marital Status | | + + + | Catholic Affiliation | Unknown | + + + | Race | Unknown | + + + | Ethnic Group | Unknown | + + + Author + + + | Author | [facility] | | | and [place] | + + + | Organization | [facility] | | | and [place] | + + + | Address | Unknown | + + + | Phone | Unavailable | + + + Support + + + + + | Name | Relationship | Address | Phone | + + + + + | Suzie Stafford | ECON | [address] | | | | | [place], [place] | | | | | [address] | | + + + + + Care Team Providers + +------+ + | Care Pipe Inspector Name | Role | Phone | + +------+ + | Gutierrez Jenkins PA-C | PCP | | + +------+ + Encounter Details +--------+ + + + + | Date | Type | Department | Care Team | Description | +--------+ + + + + | 07/25/ | Hospital | [facility] | Efrain Pettit | Hyperlipidemia; CAD | | 2012 - | Encounter | MED CTR LABORATORY | MD González [address] | (coronary artery | | | | [address] [place] | [address] [place] | disease) | | 07/27/ | | [place] | [place] [address] | | | 2012 | | [address] | [phone] | | | | | [phone] | | | +--------+ + + + [...] | + + + + + | [facility] | [address] | [place] | [phone] | | [facility] | | [address] | | | - LABORATORY | | | | + + + + + | [facility] | [address] | [place], [place] | | | [facility] | | [address] | | | - LABORATORY | | | | + + + + + documented in this encounter Visit Diagnoses + + | Diagnosis | + + | Hyperlipidemia Other and unspecified hyperlipidemia | + + | CAD (coronary artery disease) Coronary atherosclerosis of unspecified type of vessel, | | duckwater or graft | + + documented in this encounter"
--- OUTSIDE RECORDS SUMMARY | ~2019-03-28 | XMS | Clinical Summary ---
Demographics + + + | Address | [address] | | | [place] [address] | + + + | Home Phone | | + + + | Preferred Language | Unknown | + + + | Marital Status | | + + + | Voodoo Affiliation | Unknown | + + + [...] Team Providers + +------+ + | Care Train Station Agent Name | Role | Phone | + +------+ + PCP | Unavailable | + +------+ + Source Comments DANIELLE is fully live on both [facility] Ambulatory and [facility] InPatient.[facility] [...]
--- OUTSIDE RECORDS SUMMARY | ~2019-03-28 | XMS | Encounter Summary ---
Demographics + + + | Address | [address] | | | [place] [address] | + + + | Home Phone | | + + + | Preferred Language | Unknown | + + + | Marital Status | | + + + | Mosque Affiliation | Unknown | + + + | Race | Unknown | + + + | Ethnic Group | Unknown | + + + Author + + + | Author | [facility] | | | and [place] | + + + | Organization | [facility] | | | and [place] | + + + | Address | Unknown | + + + | Phone | Unavailable | + + + Support + + + + + | Name | Relationship | Address | Phone | + + + + + | Suzie Stafford | ECON | [address] | | | | | [place] | | | | | [address] | | + + + + + Care Team Providers + +------+ + | Care Underwriting Support Specialist Name | Role | Phone | [...] + + | 02/01/ | Telephone | [facility] | WilverFlorentinEfrain | Appointment | | 2012 | | [address] | MD González [address] | | | | | [place], | [place] | | | | | [place] [address] | [place] [address] | | | | | [phone] | [phone] | | | | | | | [...]
--- OUTSIDE RECORDS SUMMARY | ~2019-03-28 | XMS | Encounter Summary ---
Demographics + + + | Address | [address] | | | [place] [address] | + + + | Home Phone | | + + + | Preferred Language | Unknown | + + + | Marital Status | | + + + | Latter-Day Affiliation | Unknown | + + + | Race | Unknown | + + + | Ethnic Group | Unknown | + + + Author + + + | Author | [facility] | | | and [place] | + + + | Organization | [facility] | | | and [place] | + + + | Address | Unknown | + + + | Phone | Unavailable | + + + Support + + + + + | Name | Relationship | Address | Phone | + + + + + | Suzie Stafford | ECON | [address] | | | | | [place], [place] | | | | | [address] | | + + + + + Care Team Providers + +------+ + | Care Catering Sales Manager Name | Role | Phone | + +------+ + | Gutierrez Jenkins PA-C | PCP | | + +------+ + Encounter Details +--------+ + + + + | Date | Type | Department | Care Team | Description | +--------+ + + + + | 09/21/ | Hospital | [facility] | Cosme Galvan, | | | 2012 | Encounter | MED CTR GENERIC OP | MD Roth [address] [place] | | | | | CONV DEPT [address] | [place], [place] | | | | | [place], | [address] | | | | | [place] [address] | | | | | | [phone] | | | +--------+ + + + [...] | | | | | | | ([facility]) | | | | | | + + + +---------+ + + documented as of this encounter Plan of Treatment Not on filedocumented as of this encounter Visit Diagnoses Not on filedocumented in this encounter"
--- OUTSIDE RECORDS SUMMARY | ~2019-03-28 | XMS | Encounter Summary ---
Demographics + + + | Address | [address] | | | [place] [address] | + + + | Home Phone | | + + + | Preferred Language | Unknown | + + + | Marital Status | | + + + | Restorationist Affiliation | Unknown | + + + | Race | Unknown | + + + | Ethnic Group | Unknown | + + + Author + + + | Author | [facility] | | | and [place] | + + + | Organization | [facility] | | | and [place] | + + + | Address | Unknown | + + + | Phone | Unavailable | + + + Support + + + + + | Name | Relationship | Address | Phone | + + + + + | Suzie Stafford | ECON | [address] | | | | | [place] | | | | | [address] | | + + + + + Care Team Providers + +------+ + | Care Timber Skidder Name | Role | Phone | + [...] [address] | | | | | [place], | [address] [place] | | | | | [place] [address] | [place] [address] | | | | | [phone] | | | | | | | [...]
--- OUTSIDE RECORDS SUMMARY | ~2019-03-28 | XMS | Encounter Summary ---
Demographics + + + | Address | [address] | | | [place] [address] | + + + | Home Phone | | + + + | Preferred Language | Unknown | + + + | Marital Status | | + + + | Orthodox Affiliation | Unknown | + + + | Race | Unknown | + + + | Ethnic Group | Unknown | + + + Author + + + | Author | [facility] | | | and [place] | + + + | Organization | [facility] | | | and [place] | + + + | Address | Unknown | + + + | Phone | Unavailable | + + + Support + + + + + | Name | Relationship | Address | Phone | + + + + + | Suzie Stafford | ECON | [address] | | | | | [place] | | | | | [address] | | + + + + + Care Team Providers + +------+ + | Care Correspondence Section Supervisor Name | Role | Phone | [...] + + | 02/01/ | Telephone | [facility] | WilverFlorentinEfrain | Appointment | | 2012 | | [address] | MD Gonz[address]lez [address] | | | | | [place], | [place] [address] [place] | | | | | [place] [address] | [place] [address] | | | | | [phone] | [phone] | | | | | | | [...]
--- OUTSIDE RECORDS SUMMARY | ~2019-03-28 | XMS | Encounter Summary ---
Demographics + + + | Address | [address] | | | [place] [address] | + + + | Home Phone [...] + + + | Author | [facility] | + + + | Organization | [facility] | + + + | Address | Unknown | + + + | Phone | Unavailable | + + + Support + + + + + | Name | Relationship | Address | Phone | + + + + + | Suzie Stafford | ECON | [place] | | + + + + + Care Team Providers + +------+ + | Care Youth Care Worker Name | Role | Phone | [...]
--- OUTSIDE RECORDS SUMMARY | ~2019-03-28 | XMS | Encounter Summary ---
Demographics + + + | Address | [address] | | | [place] [address] | + + + | Home Phone | | + + + | Preferred Language | Unknown | + + + | Marital Status | | + + + | Rastafarian Affiliation | Unknown | + + + | Race | Unknown | + + + | Ethnic Group | Unknown | + + + Author + + + | Author | [facility] | | | and [place] | + + + | Organization | [facility] | | | and [place] | + + + | Address | Unknown | + + + | Phone | Unavailable | + + + Support + + + + + | Name | Relationship | Address | Phone | + + + + + | Suzie Stafford | ECON | [address] | | | | | [place], [place] | | | | | [address] | | + + + + + Care Team Providers + +------+ + | Care Application Infrastructure Engineer Name | Role | Phone | + +------+ + PCP | Unavailable | + +------+ + Encounter Details +--------+ + + + + | Date | Type | Department | Care Team | Description | +--------+ + + + + | 01/19/ | Hospital | [facility] | Rubin Moreira | Other Chest Pain | | 2006 | Encounter | [facility] | [address] | | | | | CARE FLOOR [address] | [address] | | | | | [address] | [address] | | | | | [place], [place] | | | | | | [address] | | | | | | [phone] | | | +--------+ + + + [...]
--- OUTSIDE RECORDS SUMMARY | ~2019-03-28 | XMS | Encounter Summary ---
Demographics + + + | Address | [address] | | | [place] [address] | + + + | Home Phone | | + + + | Preferred Language | Unknown | + + + | Marital Status | | + + + | Congregational Affiliation | Unknown | + + + | Race | Unknown | + + + | Ethnic Group | Unknown | + + + Author + + + | Author | [facility] | | | and [place] | + + + | Organization | [facility] | | | and [place] | + + + | Address | Unknown | + + + | Phone | Unavailable | + + + Support + + + + + | Name | Relationship | Address | Phone | + + + + + | Suzie Stafford | ECON | [address] | | | | | [place] | | | | | [address] | | + + + + + Care Team Providers + +------+ + | Care Mechanical Applications Engineer Name | Role | Phone | [...] (Primary Dx); CAD | | | | [place], | [address] [place] | (coronary artery | | | | [place] [address] | [place] [address] | disease) | | | | [phone] | [phone] | | | | | | | [...] [address] | [place] | [phone] | | [facility] | | [address] | | | - LABORATORY | | | | + + + + + | [address] | [address] | [place], [place] | | | [facility] | | [address] | | | - LABORATORY | | | | + + + + + documented in this encounter Visit Diagnoses + + | Diagnosis | + + | Hyperlipidemia - Primary Other and unspecified hyperlipidemia | + + | CAD (coronary artery disease) Coronary atherosclerosis of unspecified type of vessel, | | [place] or graft | + + documented in this encounter"
--- OUTSIDE RECORDS SUMMARY | ~2019-03-28 | XMS | Encounter Summary ---
Demographics + + + | Address | [address] | | | [place] [address] | + + + | Home Phone | | + + + | Preferred Language | Unknown | + + + | Marital Status | | + + + | Lutheran Affiliation | Unknown | + + + | Race | Unknown | + + + | Ethnic Group | Unknown | + + + Author + + + | Author | [facility] | | | and [place] | + + + | Organization | [facility] | | | and [place] | + + + | Address | Unknown | + + + | Phone | Unavailable | + + + Support + + + + + | Name | Relationship | Address | Phone | + + + + + | Suzie Stafford | ECON | [address] | | | | | [place], [place] | | | | | [address] | | + + + + + Care Team Providers + +------+ + | Care Apparel Designer Name | Role | Phone | + [...] | status | [address] | [place] [address] | | | | | asthmaticus | [place], | Phone: | | | | | ([facility]) | [place] [address] | [phone] | | | | | Procedures | Phone: | Fax: | | | | | [place] OFFICE | [phone] | [phone] | | | | | OUTPATIENT | Fax: | | | | | | NEW 45 | [phone] | | | | | | MINUTES | | | +--------+--------+ + + + + Encounter Details +--------+---------+ + + + | Date | Type | Department | Care Team | Description | +--------+---------+ + + + | 08/30/ | [facility] | [facility] | Cosme Galvan, | COPD (chronic | | 2013 | Visit | PULMONARY [address] | MD [address] | obstructive | | | | [place], | [place], [place] | pulmonary disease) | | | | [place] [address] | [address] | ([facility]) (Primary Dx); | | | | [phone] | | Asbestos exposure | +--------+---------+ + [...] is a 52 y.o. male patient of Guiterrez Jenkins here today for evaluation of C [...] 30s. The patient likewise works as a fitter welder. He denies well enough hard metal. 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 For 10 months in 1984 the patient was involved in the removal of the past best as containing insulation as part of her remodeled project. 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 Past Medical History [...] today. Pulmonary function tests were performed at [facility] but again unfortunately are not available for [...] daily. 3. To simplify function tests from [facility] to review. 4. Recent chest x-ray requested [...]
--- OUTSIDE RECORDS SUMMARY | ~2019-03-28 | XMS | Encounter Summary ---
Demographics + + + | Address | [address] | | | [place] [address] | + + + | Home Phone [...] | Author | [facility] | | | and [place] | + + + | Organization | [facility] | | | and [place] | + + + | Address | Unknown | + + + | Phone | Unavailable | + + + Support + + + + + | Name | Relationship | Address | Phone | + + + + + | Suzie Stafford | ECON | [address] | | | | | [place] | | | | | [address] | | + + + + + Care Team Providers + +------+ + | Care Anesthesiology Technologist Name | Role | Phone | + [...] [address] | | | | | [place], | [address] [place] | | | | | [place] [address] | [place] [address] | | | | | [phone] | [phone] | | | | | | | [...]
--- OUTSIDE RECORDS SUMMARY | ~2019-03-28 | XMS | Encounter Summary ---
Demographics + + + | Address | [address] | | | [place] [address] | + + + | Home Phone | | + + + | Preferred Language | Unknown | + + + | Marital Status | | + + + | Taoism Affiliation | Unknown | + + + | Race | Unknown | + + + | Ethnic Group | Unknown | + + + Author + + + | Author | [facility] | | | and [place] | + + + | Organization | [facility] | | | and [place] | + + + | Address | Unknown | + + + | Phone | Unavailable | + + + Support + + + + + | Name | Relationship | Address | Phone | + + + + + | Suzie Stafford | ECON | [address] | | | | | [place] | | | | | [address] | | + + + + + Care Team Providers + +------+ + | Care Manager Basketball Name | Role | Phone | + +------+ + PCP | Unavailable | + +------+ + Encounter Details +--------+ + + + + | Date | Type | Department | Care Team | Description | +--------+ + + + + | 09/06/ | Hospital | [facility] | | | | 2010 | Encounter | MED CTR MP INTRA OP | | | | | | [address] | | | | | | [place] | | | | | | [address] | | | | | | [phone] | | | +--------+ + + + [...]
--- OUTSIDE RECORDS SUMMARY | ~2019-03-28 | XMS | Clinical Summary ---
Demographics + + + | Address | [address] | | | [place] [address] | + + + | Home Phone | | + + + | Preferred Language | Unknown | + + + | Marital Status | | + + + | Orthodoxy Affiliation | Unknown | + + + | Race | Unknown | + + + | Ethnic Group | Unknown | + + + Author + + + | Author | [facility] | | | and [place] | + + + | Organization | [facility] | | | and [place] | + + + | Address | Unknown | + + + | Phone | Unavailable | + + + Support + + + + + | Name | Relationship | Address | Phone | + + + + + | Suzie Stafford | ECON | [address] | | | | | [place] | | | | | [address] | | + + + + + Care Team Providers + +------+ + | Care Head Up Operator Name | Role | Phone [...] MILL) | | | | | | | [...] +---------+--------+ | [employer] | [employer] | [id number] | | | | Indemn | | | INS | 6 | 015-Pr | | | ity | | | MVA | | esent | | | | + +--------+ +--------+ +---------+--------+ | [employer] | [employer] | [id number] | | [phone] | | Medica | [...] | 1960 | [phone] | [place] [address] | | | branden | | | 5 (Home) | | + +--------+ +--------+ + + | Eliud Stafford | Third | Self | [birth year] | [address] | | | Libertarian | | 1960 | [phone] | [place] [address] | | | Liabil | | | 5 ([place]ler) | | | | ity | | | | | + +--------+ +--------+ + + Advance Directives + + + + + | Type | Date Recorded | Patient | Explanation | | | | Rebeamer | | + + + + + | Power of | | | | | Search Engine Marketing Specialist | | | | + + + + + | Advance | | | | | Directive | | | | + + + + +
--- OUTSIDE RECORDS SUMMARY | ~2019-03-28 | XMS | Encounter Summary ---
Demographics + + + | Address | [address] | | | [place] [address] | + + + | Home Phone | | + + + | Preferred Language | Unknown | + + + | Marital Status | | + + + | Congregational Affiliation | Unknown | + + + | Race | Unknown | + + + | Ethnic Group | Unknown | + + + Author + + + | Author | [facility] | | | and [place] | + + + | Organization | [facility] | | | and [place] | + + + | Address | Unknown | + + + | Phone | Unavailable | + + + Support + + + + + | Name | Relationship | Address | Phone | + + + + + | Suzie Stafford | ECON | [address] | | | | | [place] | | | | | [address] | | + + + + + Care Team Providers + +------+ + | Care Railway Head Tender Name | Role | Phone | + [...] [address] | UP) | | | | [place], | [place], [place] | | | | | [place] [address] | [address] | | | | | [phone] | | | +--------+ + + + [...]
--- OUTSIDE RECORDS SUMMARY | ~2019-03-28 | XMS | Encounter Summary ---
Demographics + + + | Address | [address] | | | [place] [address] | + + + | Home Phone | | + + + | Preferred Language | Unknown | + + + | Marital Status | | + + + | Restoration Affiliation | Unknown | + + + | Race | Unknown | + + + | Ethnic Group | Unknown | + + + Author + + + | Author | [facility] | | | and [place] | + + + | Organization | [facility] | | | and [place] | + + + | Address | Unknown | + + + | Phone | Unavailable | + + + Support + + + + + | Name | Relationship | Address | Phone | + + + + + | Suzie Stafford | ECON | [address] | | | | | [place] | | | | | [address] | | + + + + + Care Team Providers + +------+ + | Care Hot Repairman Name | Role | Phone | + [...] [address] | | | | | [phone] | [place] | | | | | | [place] [address] | | | | | | [phone] | | | | | | | [...]
--- OUTSIDE RECORDS SUMMARY | ~2019-03-28 | XMS | Encounter Summary ---
Demographics + + + | Address | [address] | | | [place] [address] | + + + | Home Phone | | + + + | Preferred Language | Unknown | + + + | Marital Status | | + + + | Religion Affiliation | Unknown | + + + | Race | Unknown | + + + | Ethnic Group | Unknown | + + + Author + + + | Author | [facility] | | | and [place] | + + + | Organization | [facility] | | | and [place] | + + + | Address | Unknown | + + + | Phone | Unavailable | + + + Support + + + + + | Name | Relationship | Address | Phone | + + + + + | Suzie Stafford | ECON | [address] | | | | | [place], [place] | | | | | [address] | | + + + + + Care Team Providers + +------+ + | Care Inventory Audit Clerk Name | Role | Phone | + +------+ + | Gutierrez Jenkins PA-C | PCP | | + +------+ + Encounter Details +--------+ + + + + | Date | Type | Department | Care Team | Description | +--------+ + + + + | 09/21/ | Hospital | [facility] | Cosme Galvan, | | | 2012 | Encounter | MED CTR GENERIC OP | MD [address] | | | | | CONV DEPT [address] | [place], [place] | | | | | [place], | [address] | | | | | [place] [address] | | | | | | [phone] | | | +--------+ + + + [...] | | | | | | | ([facility]) | | | | | | + + + +---------+ + + documented as of this encounter Plan of Treatment Not on filedocumented as of this encounter Visit Diagnoses Not on filedocumented in this encounter"
--- OUTSIDE RECORDS SUMMARY | ~2019-03-28 | XMS | Encounter Summary ---
Demographics + + + | Address | [address] | | | [place] [address] | + + + | Home Phone | | + + + | Preferred Language | Unknown | + + + | Marital Status | | + + + | Jewish Affiliation | Unknown | + + + | Race | Unknown | + + + | Ethnic Group | Unknown | + + + Author + + + | Author | [facility] | | | and [place] | + + + | Organization | [facility] | | | and [place] | + + + | Address | Unknown | + + + | Phone | Unavailable | + + + Support + + + + + | Name | Relationship | Address | Phone | + + + + + | Suzie Stafford | ECON | [address] | | | | | [place], [place] | | | | | [address] | | + + + + + Care Team Providers + +------+ + | Care Property Maintenance Technician Name | Role | Phone | + [...] | status | [address] | [place] [address] | | | | | asthmaticus | [place], | Phone: | | | | | ([facility]) | [place] [address] | [phone] | | | | | Procedures | Phone: | Fax: | | | | | [place] OFFICE | [phone] | [phone] | | | | | OUTPATIENT | Fax: | | | | | | NEW 45 | [phone] | | | | | | MINUTES | | | +--------+--------+ + + + + Encounter Details +--------+---------+ + + + | Date | Type | Department | Care Team | Description | +--------+---------+ + + + | 08/30/ | Office | [facility] | Cosme Galvan, | COPD (chronic | | 2013 | Visit | PULMONARY [address] | MD [address] | obstructive | | | | [place], | [place], [place] | pulmonary disease) | | | | [place] [address] | [address] | ([facility]) (Primary Dx); | | | | [phone] | | Asbestos exposure | +--------+---------+ + [...] 30s. The patient likewise works as a pipeline welder. He denies well enough hard metal. 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 For 10 months in 1984 the patient was involved in the removal of the past best as containing insulation as part of her remodeled project. 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 Past Medical History [...] today. Pulmonary function tests were performed at [facility] but again unfortunately are not [...] daily. 3. To simplify function tests from [facility] to review. 4. Recent chest x-ray requested [...]
[~2019-03-28 06:21] MED LIST: ADULT LOW DOSE81 MG PO; CARVEDILOL12.5 MG PO; NORCO 5-325 TA1 EACH PO; NORCO 7.5-3251 EACH PO; PRILOSEC20 MG PO; SPIRIVA18 MCG INH; VENTOLIN HFA18 GM IH; ZOCOR40 MG PO
[2019-03-28] MEDS ORDERED: MORPHINE SULFAT15 MG PO (08:55)
[2019-03-28] MEDS ORDERED: BENADRYL25 MG PO (08:55)
[2019-03-28] MEDS ORDERED: ZOFRAN4 MG PO (08:55)
[2019-03-28] MEDS ORDERED: FLOMAX0.4 MG PO (08:55)
== END 2019-03-28 09:53 | disposition home or self-care (01) ==
LOC: ED 06:21
DX: R10.9 Unspecified abdominal pain (principal); I11.0 Hypertensive heart disease with heart failure; I50.9 Heart failure, unspecified; F17.200 Nicotine dependence, unspecified, uncomplicated; Z86.73 Personal history of transient ischemic attack (TIA), and cerebral infarction without residual deficits; Z88.8 Allergy status to other drugs, medicaments and biological substances; Z88.5 Allergy status to narcotic agent; Z88.1 Allergy status to other antibiotic agents; Z79.899 Other long term (current) drug therapy; Z79.82 Long term (current) use of aspirin
CPT/HCPCS: 74177; 80053; 81001; 83690; 85025; 99284-25; J1885; J2270; J2405; Q9967

== ENCOUNTER 2019-04-20 07:49 | Emergency (ER) | payer OTHER ==
[~2019-04-20] VITALS: Ht 177.8 cm; Wt 86.2 kg
--- OUTSIDE RECORDS SUMMARY | ~2019-04-20 | XMS | Encounter Summary ---
Demographics + + + | Address | [address] | | | [place] [address] | + + + | Home Phone | | + + + | Preferred Language | Unknown | + + + | Marital Status | | + + + | Yazidism Affiliation | Unknown | + + + | Race | White | + + + | Ethnic Group | Not or | + + + Author + + + | Author | [facility] | + + + | Organization | [facility] | + + + | Address | Unknown | + + + | Phone | Unavailable | + + + Support + + + + + | Name | Relationship | Address | Phone | + + + + + | Suzie Stafford | ECON | [place] | | + + + + + Care Team Providers + +------+ + | Care Land Law Examiner Name | Role | Phone | + +------+ + PCP | Unavailable | + +------+ + Encounter Details +--------+ + + + + | Date | Type | Department | Care Team | Description | +--------+ + + + + | 12/09/ | ED Progress | [facility] | Report, Emergency | ED Progress Note | | 1997 | | MEDICINE | Services | | | | Note-Transc | | | | | | ribed | | | | +--------+ + + + + Social History + +-------+ +--------+------+ | Tobacco Use | Types | Packs/Day | Years | Date | | | | | Used | | + +-------+ +--------+------+ | Never Assessed | | | | | + +-------+ +--------+------+ + + + | Sex Assigned at | Date Recorded | | | | + + + | Not on file | | + + + + + + + | Job Start Date | Occupation | Industry | + + + + | Not on file | Not on file | Not on file | + + + + + + + + | Travel History | Travel Start | Travel End | + + + + + + | No recent travel history available. | + + documented as of this encounter Plan of Treatment Not on filedocumented as of this encounter Visit Diagnoses Not on filedocumented in this encounter"
--- OUTSIDE RECORDS SUMMARY | ~2019-04-20 | XMS | Encounter Summary ---
Demographics + + + | Address | [address] | | | [place] [address] | + + + | Home Phone | | + + + | Preferred Language | Unknown | + + + | Marital Status | | + + + | Catholic Affiliation | Unknown | + + + | Race | Unknown | + + + | Ethnic Group | Unknown | + + + Author + + + | Author | [facility] | | | and [place] | + + + | Organization | [facility] | | | and [place] | + + + | Address | Unknown | + + + | Phone | Unavailable | + + + Support + + + + + | Name | Relationship | Address | Phone | + + + + + | Suzie Stafford | ECON | [address] | | | | | [place] | | | | | [address] | | + + + + + Care Team Providers + +------+ + | Care Revenue Field Auditor Name | Role | Phone | + [...] + + | 09/21/ | Office | [facility] | Cosme Galvan, | Chronic bronchitis | | 2012 | Visit | PULMONARY [address] | MD [address] | ([facility]) (Primary Dx); | | | | [place], | [place], [place] | COPD (chronic | | | | [place] [address] | [address] | obstructive | | | | [phone] | | pulmonary disease) | | | | | | ([facility]) | +--------+---------+ + + + Social History [...]
--- OUTSIDE RECORDS SUMMARY | ~2019-04-20 | XMS | Encounter Summary ---
Demographics + + + | Address | [address] | | | [place] [address] | + + + | Home Phone | | + + + | Preferred Language | Unknown | + + + | Marital Status | | + + + | Latter Day Affiliation | Unknown | + + + | Race | Unknown | + + + | Ethnic Group | Unknown | + + + Author + + + | Author | [facility] | | | and [place] | + + + | Organization | [facility] | | | and [place] | + + + | Address | Unknown | + + + | Phone | Unavailable | + + + Support + + + + + | Name | Relationship | Address | Phone | + + + + + | Suzie Stafford | ECON | [address] | | | | | [place], [place] | | | | | [address] | | + + + + + Care Team Providers + +------+ + | Care Flow Manager Name | Role | Phone | + +------+ + | Gutierrez Jenkins PA-C | PCP | | + +------+ + Encounter Details +--------+ + + + + | Date | Type | Department | Care Team | Description | +--------+ + + + + | 07/24/ | Abstract | [facility] [place] | Efrain Pettit | Chest pain (Primary | | 2012 | | CARDIOLOGY [address] | MD Gonz[address] | Dx) | | | | [place], | [address] [place] | | | | | [place] [address] | [place] [address] | | | | | [phone] | [phone] | | | | | | | [...] + | Diagnosis | + + | Chest pain - Primary Chest pain, unspecified | + + documented in this encounter"
--- OUTSIDE RECORDS SUMMARY | ~2019-04-20 | XMS | Encounter Summary ---
Demographics + + + | Address | [address] | | | [place] [address] | + + + | Home Phone | | + + + | Preferred Language | Unknown | + + + | Marital Status | | + + + | Tenriism Affiliation | Unknown | + + + | Race | Unknown | + + + | Ethnic Group | Unknown | + + + Author + + + | Author | [facility] | | | and [place] | + + + | Organization | [facility] | | | and [place] | + + + | Address | Unknown | + + + | Phone | Unavailable | + + + Support + + + + + | Name | Relationship | Address | Phone | + + + + + | Suzie Stafford | ECON | [address] | | | | | [place], [place] | | | | | [address] | | + + + + + Care Team Providers + +------+ + | Care Chief Security Officer Name | Role | Phone | + +------+ + PCP | Unavailable | + +------+ + Encounter Details +--------+ + + + + | Date | Type | Department | Care Team | Description | +--------+ + + + + | 04/13/ | [facility] | [facility] | Lucinda [place] | | | 2008 | Encounter | MED CTR EMERGENCY | Kota Carl MD [address] | | | | | [place] [address] [address] | [facility] | | | | | [place] | [place] [address] | | | | | [address] | [phone] | | | | | [phone] | | | +--------+ + + + [...]
--- OUTSIDE RECORDS SUMMARY | ~2019-04-20 | XMS | Encounter Summary ---
Demographics + + + | Address | [address] | | | [place] [address] | + + + | Home Phone | | + + + | Preferred Language | Unknown | + + + | Marital Status | | + + + | Sabianism Affiliation | Unknown | + + + | Race | Unknown | + + + | Ethnic Group | Unknown | + + + Author + + + | Author | [facility] | | | and [place] | + + + | Organization | [facility] | | | and [place] | + + + | Address | Unknown | + + + | Phone | Unavailable | + + + Support + + + + + | Name | Relationship | Address | Phone | + + + + + | Suzie Stafford | ECON | [address] | | | | | [place] | | | | | [address] | | + + + + + Care Team Providers + +------+ + | Care Mining Professionals Name | Role | Phone | + +------+ + PCP | Unavailable | + +------+ + Encounter Details +--------+ + + + + | Date | Type | Department | Care Team | Description | +--------+ + + + + | 09/06/ | Hospital | [facility] | | | | 2010 | Encounter | MED CTR MP INTRA OP | | | | | | [address] | | | | | | [place] | | | | | | [address] | | | | | | [phone] | | | +--------+ + + + [...]
--- OUTSIDE RECORDS SUMMARY | ~2019-04-20 | XMS | Encounter Summary ---
Demographics + + + | Address | [address] | | | [place] [address] | + + + | Home Phone | | + + + | Preferred Language | Unknown | + + + | Marital Status | | + + + | Nondenominational Affiliation | Unknown | + + + | Race | Unknown | + + + | Ethnic Group | Unknown | + + + Author + + + | Author | [facility] | | | and [place] | + + + | Organization | [facility] | | | and [place] | + + + | Address | Unknown | + + + | Phone | Unavailable | + + + Support + + + + + | Name | Relationship | Address | Phone | + + + + + | Suzie Stafford | ECON | [address] | | | | | [place] | | | | | [address] | | + + + + + Care Team Providers + +------+ + | Care Director Food Safety Name | Role | Phone | + +------+ + | Gutierrez Jenkins PA-C | PCP | | + +------+ + Reason for Visit + + + | Reason | Comments | + + + | Medication Refill | | + + + Encounter Details +--------+--------+ + + + | Date | Type | Department | Care Team | Description | +--------+--------+ + + + | 05/06/ | Refill | [facility] | Efrain Pettit | Medication Refill | | 2013 | | [address] | MD [address] | | | | | [place], | [address] [place] | | | | | [place] [address] | [place] [address] | | | | | [phone] | [phone] | | | | | | | | +--------+--------+ + + + Social History + + [...]
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
--- OUTSIDE RECORDS SUMMARY | ~2019-04-20 | XMS | Encounter Summary ---
Demographics + + + | Address | [address] | | | [place] [address] | + + + | Home Phone | | + + + | Preferred Language | Unknown | + + + | Marital Status | | + + + | Presybeterian Affiliation | Unknown | + + + | Race | Unknown | + + + | Ethnic Group | Unknown | + + + Author + + + | Author | [facility] | | | and [place] | + + + | Organization | [facility] | | | and [place] | + + + | Address | Unknown | + + + | Phone | Unavailable | + + + Support + + + + + | Name | Relationship | Address | Phone | + + + + + | Suzie Stafford | ECON | [address] | | | | | [place], [place] | | | | | [address] | | + + + + + Care Team Providers + +------+ + | Care Enrollment Management Coordinator Name | Role | Phone | + [...] | SR | | | | | [phone] | | | +--------+ + + + [...]
--- OUTSIDE RECORDS SUMMARY | ~2019-04-20 | XMS | Encounter Summary ---
Demographics + + + | Address | [address] | | | [place] [address] | + + + | Home Phone | | + + + | Preferred Language | Unknown | + + + | Marital Status | | + + + | Mormon Affiliation | Unknown | + + + | Race | Unknown | + + + | Ethnic Group | Unknown | + + + Author + + + | Author | [facility] | | | and [place] | + + + | Organization | [facility] | | | and [place] | + + + | Address | Unknown | + + + | Phone | Unavailable | + + + Support + + + + + | Name | Relationship | Address | Phone | + + + + + | Suzie Stafford | ECON | [address] | | | | | [place], [place] | | | | | [address] | | + + + + + Care Team Providers + +------+ + | Care Care Professionals Name | Role | Phone | + +------+ + PCP | Unavailable | + +------+ + Encounter Details +--------+ + + + + | Date | Type | Department | Care Team | Description | +--------+ + + + + | 01/19/ | Hospital | [facility] | Rubin Moreira | Other Chest Pain | | 2006 | Encounter | [facility] | [address] | | | | | CARE FLO[address] | [address] [place] | | | | | [address] | [address] | | | | | [place], [place] | | | | | | [address] | | | | | | [phone] | | | +--------+ + + + [...] + | Diagnosis | + + | Other chest pain | + + documented in this encounter"
--- OUTSIDE RECORDS SUMMARY | ~2019-04-20 | XMS | Encounter Summary ---
Demographics + + + | Address | [address] | | | [place] [address] | + + + | Home Phone | | + + + | Preferred Language | Unknown | + + + | Marital Status | | + + + | Oriental Orthodox Affiliation | Unknown | + + + | Race | Unknown | + + + | Ethnic Group | Unknown | + + + Author + + + | Author | [facility] | | | and [place] | + + + | Organization | [facility] | | | and [place] | + + + | Address | Unknown | + + + | Phone | Unavailable | + + + Support + + + + + | Name | Relationship | Address | Phone | + + + + + | Suzie Stafford | ECON | [address] | | | | | [place] | | | | | [address] | | + + + + + Care Team Providers + +------+ + | Care Slat Twister Name | Role | Phone | + +------+ + | Gutierrez Jenkins PA-C | PCP | | + +------+ + Encounter Details +--------+ + + + + | Date | Type | Department | Care Team | Description | +--------+ + + + + | 07/24/ | Orders Only | [facility] | Efrain Pettit | Hyperlipidemia | | 2013 | | CARDIOLOGY [address] | MD González [address] | (Primary Dx); CAD | | | | [place], | [address] [place] | (coronary artery | | | | [place] [address] | [place] [address] | disease) | | | | [phone] | [phone] | | | | | | | [...] Not on filedocumented as of this encounter Results Lipid Profile (07/25/2012 9:08 AM PDT) + + + + + + | Component | Value | Ref Range | Performed | Pathologist | | | | | At | Signature | + + + + + + | Triglycerid | 115 | 35 - 160 mg/dL | [facility] | | | es | | | [facility] | | | | | | [facility] | | | | | | CENTER - | | | | | | LABORATORY | | + + + + + + | Cholesterol | 252 (H) | 150 - 200 mg/dL | [facility] | | | | | | [facility] | | | | | | MEDICAL | | | | | | CENTER - | | | | | | LABORATORY | | + + + + + + | HDL | 36 | 27 - 67 mg/dL | [facility] | | | | | | [facility] | | | | | | MEDICAL | | | | | | CENTER - | | | | | | LABORATORY | | + + + + + + | LDL, | 193 (H) | <130 mg/dL | [facility] | | | Calculated | | | [facility] | | | | | | MEDICAL | | | | | | CENTER - | | | | | | LABORATORY | | + + + + + + | Chol/HDL | 7.0Comment: | | [facility] | | | Ratio | | | [facility] | | | | | | MEDICAL | | | | -------RISK CATEGORY: | | CENTER - | | | | CHOL/HDL * T.CHOL * LDL | | LABORATORY | | | | CHOL * HDL CHOL | | | | | | | | | | | | RATIODESIRABLE: (M) | | | | | | 4.0-6.7 <200 | | | | | | <130 >50 | | | | | | (F) | | | | | | 3.7-4.2BORDERLINE:(M) | | | | | | 6.7-7.4 200-240 | | | | | | 130-160 <45 | | | | | | (F) | | | | | | 4.2-5.5HIGH RISK: (M) | | | | | | >7.4 >240 | | | | | | >160 <35 | | | | | | (F) | | | | | | >5.5 | | | | | | | | | | | | | | | | + + + + + + + + | Specimen | + + | Blood specimen | | (specimen) | + + + + + | Narrative | Performed At | + + + | | [facility] | | | [facility] | | | [facility] | | | - LABORATORY | + + + + + + + + | Performing | Address | City/State/Zipcode | Phone Number | | Organization | | | | + + + + + | [facility] | [address] | [place] | [phone] | | [facility] | | [address] | | | - LABORATORY | | | | + + + + + | [facility] | [address] | [place], [place] | | | [facility] | | [address] | | | - LABORATORY | | | | + + + + + documented in this encounter Visit Diagnoses + + | Diagnosis | + + | Hyperlipidemia - Primary Other and unspecified hyperlipidemia | + + | CAD (coronary artery disease) Coronary atherosclerosis of unspecified type of vessel, | | pamunkey or graft | + + documented in this encounter"
--- OUTSIDE RECORDS SUMMARY | ~2019-04-20 | XMS | Encounter Summary ---
Demographics + + + | Address | [address] | | | [place] [address] | + + + | Home Phone | | + + + | Preferred Language | Unknown | + + + | Marital Status | | + + + | Orthodoxy Affiliation | Unknown | + + + | Race | Unknown | + + + | Ethnic Group | Unknown | + + + Author + + + | Author | [facility] | | | and [place] | + + + | Organization | [facility] | | | and [place] | + + + | Address | Unknown | + + + | Phone | Unavailable | + + + Support + + + + + | Name | Relationship | Address | Phone | + + + + + | Suzie Stafford | ECON | [address] | | | | | [place], [place] | | | | | [address] | | + + + + + Care Team Providers + +------+ + | Care Industry Analyst Name | Role | Phone | + [...] [address] | | | | | [place], | [place] | | | | | [place] [address] | [place] [address] | | | | | [phone] | | | | | | | [...] | | ine | | | [facility] | | | | | | MEDICAL [...] St | [place] | | | [facility] | | [address] | | | - LABORATORY | | [...] St | [place] | | | [facility] | | [address] | | | - LABORATORY | | [...] | | | LAB | | | Cym[place], | | | | | | External [...]
--- OUTSIDE RECORDS SUMMARY | ~2019-04-20 | XMS | Encounter Summary ---
Demographics + + + | Address | [address] | | | [place] [address] | + + + | Home Phone | | + + + | Preferred Language | Unknown | + + + | Marital Status | | + + + | Evangelical Affiliation | Unknown | + + + | Race | Unknown | + + + | Ethnic Group | Unknown | + + + Author + + + | Author | [facility] | | | and [place] | + + + | Organization | [facility] | | | and [place] | + + + | Address | Unknown | + + + | Phone | Unavailable | + + + Support + + + + + | Name | Relationship | Address | Phone | + + + + + | Suzie Stafford | ECON | [address] | | | | | [place], [place] | | | | | [address] | | + + + + + Care Team Providers + +------+ + | Care It Infrastructure Manager Name | Role | Phone | [...] [address] | | | | | [place], | [address] [address] [place] | | | | | [place] [address] | [place] [address] | | | | | [phone] | [phone] | | | | | | | [...] | | ine | | | [facility] | | | | | [...] St | [place] | | | [facility] | | [address] | | | - LABORATORY | | [...] St | [place] | | | [facility] | | [address] | | | - LABORATORY | | [...] | | | LAB | | | [place], | | | | | | External [...]
--- OUTSIDE RECORDS SUMMARY | ~2019-04-20 | XMS | Encounter Summary ---
Demographics + + + | Address | [address] | | | [place] [address] | + + + | Home Phone | | + + + | Preferred Language | Unknown | + + + | Marital Status | | + + + | Church Affiliation | Unknown | + + + | Race | Unknown | + + + | Ethnic Group | Unknown | + + + Author + + + | Author | [facility] | | | and [place] | + + + | Organization | [facility] | | | and [place] | + + + | Address | Unknown | + + + | Phone | Unavailable | + + + Support + + + + + | Name | Relationship | Address | Phone | + + + + + | Suzie Stafford | ECON | [address] | | | | | [place], [place] | | | | | [address] | | + + + + + Care Team Providers + +------+ + | Care Sales Administrator Name | Role | Phone | + +------+ + | Gutierrez Jenkins PA-C | PCP | | + +------+ + Reason for Visit +--------+ + | Reason | Comments | +--------+ + | COPD | | +--------+ + Evaluate & Treat (Routine) +--------+--------+ + + + + | Status | Reason | Specialty | Diagnoses / | Referred By | Referred To | | | | | Procedures | Contact | Contact | +--------+--------+ + + + + | Closed | | Pulmonology | Diagnoses | Alice, | Galvan, | | | | | Chronic | Gutierrez, | MD Cosme | | | | | obstructive | PA-C [address] | [address] | | | | | asthma with | [address] | [place], | | | | | status | [address] | [place] [address] | | | | | asthmaticus | JANNETH, | Phone: | | | | | ([facility]) | [place] [address] | [phone] | | | | | Procedures | Phone: | Fax: | | | | | [place] OFFICE | [phone] | [phone] | | | | | OUTPATIENT | Fax: | | | | | | NEW 45 | [phone] | | | | | | MINUTES | | | +--------+--------+ + + + + Encounter Details +--------+---------+ + + + | Date | Type | Department | Care Team | Description | +--------+---------+ + + + | 08/30/ | Office | [facility] | Cosme Galvan, | COPD (chronic | | 2013 | Visit | PULMONARY [address] | MD [address] | obstructive | | | | [place], | [place], [place] | pulmonary disease) | | | | [place] [address] | [address] | ([facility]) (Primary Dx); | | | | [phone] | | Asbestos exposure | +--------+---------+ + + + Social History [...] + + + | Blood Pressure | 102/70 | 08/30/2012 1:24 PM | | | | | PDT | | + + + + + | Pulse | 89 | 08/30/2012 1:24 PM | | | | | PDT | | + + + + + | Temperature | 36.6 C (97.8 F) | 08/30/2012 1:24 PM | | | | | PDT | | + + + + + | Respiratory Rate | - | - | | + + + + + | Oxygen Saturation | 97% | 08/30/2012 1:24 PM | | | | | PDT | | + + + + + | Inhaled Oxygen | - | - | | | Concentration | | | | + + + + + | Weight | 82.4 kg (181 lb 11.2 | 08/30/2012 1:24 PM | | | | oz) | PDT | | + + + + + | Height | 175.3 cm (5' 9") | 08/30/2012 1:24 PM | | | | | PDT | | + + + + + | Body Mass Index | 26.83 | 08/30/2012 1:24 PM | | | | | PDT | | + + + + + documented in this encounter Patient Instructions Patient Instructions Cosme Galvan MD - 08/30/2012 2:09 PM PDTFirst use Spiriva and t hen Symicort. Rinse month after each Symbicort use.Electronically signed by Cosme Galvan MD at 08/30 2:10 PM PDT documented in this encounter Progress Notes Cosme Galvan MD - 08/30/2012 1:46 PM PDTFormatting of this note might be different f rom the original. Pulmonary Consult Note 08/30/2012 HPI Eliud Stafford is a 52 y.o. male patient of Gutierrez Jenkins here today for evaluation of C OPD. He notes that he first started having troubles with their breathing at age 32's. At that ti me they presented with symptoms of SOB and sputum. Since that time their symptoms have slowl y progressed. They report their main symptoms at this point to be SOB with minimal exertion, cough and wheezing and dizziness. Currently they are able to walk 1/2 mile at their own pace on level ground. The distance wa lked is predominately limited by dyspnea. One year ago, they feel that they could walk coupl e blocks. They do exercise regularly. They are not enrolled in cardiac/pulmonary rehabilitat ion or other physical therapy. They have not completed pulmonary rehabilitation in the past. He does cough chronically, and does produce mucous. The mucous is thick and white/yellow in color. They have had hemoptysis very rarely. Last time was early today. Triggers for their shortness of breath include exertion, strong smells and smoke. Relieving factors include rest and avoidance. Treatments that they have tried to this point include Ventolin. Currently they are on Annette christian. They do feel that these treatments are helping their breathing. Currently they are usin g their rescue inhaler, Ventolin, 2 times a day. They have not had to be hospitalized for breathing issues in the past, and have not require d intubation in the past. They have not had to go to the emergency room in the last year. Ivan apple have had 0 exacerbations in the past year requiring treatment with prednisone or antibiot ics. He has not been evaluated for nocturnal oxygen and does use it. Uses mother's old oxygen pr n after exertion. They are currently on 3-4 LPM at night. Constant chest pain is present. The pain is described as substernal or located in the left anterior location. With exertion the pain radiates to the back and down the left arm. Mr. Stafford describes being evaluated by Dr. Pettit. His records indicates the patient has non obstructive coronary artery disease. Eliud worked in multiple jobs that resulted in respiratory issues. 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 The patient likewise works as a robotic welder. He denies well enough hard metal. 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 For 10 months in 1984 the patient was involved in the removal of the past best as containing insulation as part of her remodeled project. 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 Past Medical History Past Medical History Diagnosis Date Hyperlipidemia Coronary artery disease Stress test 11/2006 CHF STROKE/PER PATIENT 2011 2009 Tobacco user Gastroesophageal reflux disease Chronic pain treated with opiates Chest pain Palpitation Hernia Hepatitis C Genotype 2b. has been ID and ofered interferon but addy did not follow up -2007 Bipolar affective disorder Panic disorder COPD (chronic obstructive pulmonary disease) Mitral stenosis with insufficiency Nondependent opioid abuse, continuous Pneumonia recurrent External hemorrhoid Past Surgical History Past Surgical History Procedure Date Cardiac catherization 12/2006 Cardiac catherization 11/22/11 LVEF 65% Vasectomy Hip surgery 2012 right Leg surgery right Family History: Family History Problem Relation Age of Onset High blood pressure Father Cancer Father colon/prostate * Mother suicide Irritable bowel syndrome Brother Kidney disease Brother Social History: He reports that he quit [...] Irritability Codeine Sulfate Itching Medications: Current outpatient prescriptions:HYDROcodone-acetaminophen (NORCO) 7.5-325 mg per tablet, T shreya 1 tablet by mouth every 8 hours as needed., Disp: , Rfl: ; mupirocin (BACTROBAN) 2% oin tment, Apply topically 2 times daily., Disp: , Rfl: ; albuterol (VENTOLIN HFA) 90 mcg/puff inhaler, Inhale 2 puffs into the lungs every 6 hours as needed., Disp: , Rfl: ; simvastati n (ZOCOR) 40 mg tablet, One tablet by mouth one time daily, Disp: 30 tablet, Rfl: 6 aspirin 81 mg EC tablet, Take 81 mg by mouth Daily., Disp: , Rfl: ; omeprazole (PRILOSEC) 20 mg capsule, Take 20 mg by mouth Daily., Disp: , Rfl: ; tiotropium (SPIRIVA HANDIHALER) 1 8 mcg inhalation capsule, Inhale contents of one capsule once daily (do not swallow capsules ), Disp: 10 capsule, Rfl: 0; budesonide-formoterol (SYMBICORT) 160-4.5 mcg/puff inhaler, In fischer two inhalations by mouth twice daily, Disp: 1 Inhaler, Rfl: 0 Review of Systems Constitutional: Denies fever, chills, sweats, fatigue/weakness, and unexpected weight smyth ge. Sleep: Denies trouble sleeping, excessive snoring, and daytime sleepiness. Eyes: Denies vision change, and eye irritation. ENT: Denies earache, tinnitus, decreased hearing, nasal congestion, nosebleeds, sore throa t, and hoarseness. Resp: Denies hemoptysis or pleuritic chest pain. CV: Denies neck/chest/jaw pain with exertion, palpitations, lightheadedness, syncope, dysp tima on exertion, orthopnea, PND, peripheral edema, and claudication. GI: Denies trouble swallowing, heartburn, nausea, vomiting, abdominal pain, diarrhea, cons tipation,melena, and hematochezia. Denies dysuria, hematuria, urinary frequency, difficulty emptying bladder, nocturia. Musculoskeletal: Denies joint pain/stiffness, joint swelling, back pain, neck pain, muscle cramps, muscle weakness. Derm: Denies rash, itching, dryness, and suspicious lesions. Neurologic: Denies frequent headaches, seizures, tremors, numbness or tingling in hands or feet, vertigo, and fall or difficulty walking in past 6 months Psych Denies depression, anxiety, suicidal ideation. Endo Denies cold intolerance, heat intolerance, and unusual weight change. Heme Denies abnormal bruising, bleeding, and enlarged lymph nodes. Allergy Denies urticaria, allergic rash, hay fever Objective BP 102/70 | Pulse 89 | Temp(Src) 36.6 C (97.8 F) (Oral) | Ht 1.753 m (5' 9") | Wt 82.41 9 kg (181 lb 11.2 oz) | BMI 26.83 kg/m2 | SpO2 97% General Appearance: Alert, cooperative, no distress, appears stated age. Head: Normocephalic, without obvious abnormality, atraumatic. Eyes: PERRL, conjunctiva/corneas clear. Ears: Normal external appearance, TM's not examined. Nose: Nares normal, septum midline, mucosa normal, no drainage or sinus tenderness. Throat: Lips, mucosa, and tongue normal; patient has upper and lower dental plates. MP 2-3 and. Neck: Supple, symmetrical, no adenopathy. Lungs: No accessory muscle use, breath sounds are reduced to auscultation bilaterally, no wheezes, crackles or rhonchi. No dullness to percussion. Chest Wall: No tenderness or deformity. Heart: Regular rate and rhythm, S1, S2 normal, no murmur, rub or gallop Abdomen: Soft, non-tender. No hepatosplenomegaly. Extremities: Extremities normal, atraumatic, no cyanosis, clubbing, or edema Pulses: Radial pulses 2+ and symmetric Skin: Warm and dry Lymph nodes: Cervical and supraclavicular nodes normal Neurologic: Gait normal Data: Chest x-ray was done in the last month or so but are not available for review today. Pulmonary function tests were performed at [facility] but again unfortunately are not available for my review today. Gutierrez Gomezidor's notes were reviewed in clinic today. Assessment Eliud Stafford is a 52-year-old nonsmoker who presents at the request of Mr. Jenkins for pul monary consultation regarding possible chronic obstructive pulmonary disease. The patient's main question is whether he has asbestosis. Eliud has a 45-90 pack-year smoking history. There is also a history of significant occupa tional related inhalational exposure. These include exposure to fiberglass insulation, smok e from welding, asbestos and chronic dust. The patient appears to have a history of nonobst ructive coronary artery disease. Over the last 20 years Eliud is noted gradually increasing shortness of breath. He has bee n treated with albuterol via metered-dose inhaler and notes some improvement of symptoms. A pparently he was asked to use another inhaled agent but it was not covered by his insurance. Specifics are not known by the patient. He has had recent pulmonary function testing and an x-ray. Results are not available at e time of this evaluation. On physical exam there is no definitive evidence of interstitial lung disease or an exacerbation of obstructive lung disease. I suggested that we institute trials of Spiriva and Symbicort. I will also like to review his recent chest x-ray and pulmonary function tests. The issue of possible asbestos-related lung disease will depend on his chest x-ray and pulm onary function tests. If a significant diffusion abnormality is present but no interstitial changes are noted on x-ray then we will need to consider performing a CT scan of the chest to look for evidence of asbestosis. The patient's chest pain is of unclear etiology. Chest pain related to asbestos exposure i s potentially consistent with mesothelioma. However I would expect to see significant abnor malities on x-ray imaging if such a diagnosis was present. Plan 1. Trial of Spiriva one capsule inhaled daily. 2. Followed by Symbicort 160/4.52 inhalations twice daily. 3. To simplify function tests from [place]'s to review. 4. Recent chest x-ray requested for review. 5. Pulmonary clinic followup appointment to review the above noted medications/studies in approximately 3 weeks' time. 6. Exertional oximetry. CC: Gutierrez Jenkins Tdocumented in this encounter Plan of Treatment + + +--------+ + + | Name | Type | Priori | Associated Diagnoses | Order Schedule | | | | ty | | | + + +--------+ + + | Pulse oximetry | Respiratory | Routin | COPD (chronic | Expected: | | titation | Care | e | obstructive | 08/30/2012, Expires: | | | | | pulmonary disease) | 08/30/2013 | | | | | (HCC) | | + + +--------+ + + documented as of this encounter Visit Diagnoses + + | Diagnosis | + + | COPD (chronic obstructive pulmonary disease) (HCC) - Primary Chronic airway | | obstruction, not elsewhere classified | + + | Asbestos exposure Personal history of contact with and (suspected) exposure to | | asbestos | + + documented in this encounter
--- OUTSIDE RECORDS SUMMARY | ~2019-04-20 | XMS | Encounter Summary ---
Demographics + + + | Address | [address] | | | [place] [address] | + + + | Home Phone | | + + + | Preferred Language | Unknown | + + + | Marital Status | | + + + | Scientologist Affiliation | Unknown | + + + | Race | Unknown | + + + | Ethnic Group | Unknown | + + + Author + + + | Author | [facility] | | | and [place] | + + + | Organization | [facility] | | | and [place] | + + + | Address | Unknown | + + + | Phone | Unavailable | + + + Support + + + + + | Name | Relationship | Address | Phone | + + + + + | Suzie Stafford | ECON | [address] | | | | | [place] | | | | | [address] | | + + + + + Care Team Providers + +------+ + | Care Hand Deicer Element Winder Name | Role | Phone | + [...] | +--------+ + + + + | 02/01/ | Telephone | [facility] | WilverFlorentinEfrain | Appointment | | 2012 | | [address] | MD [address] | | | | | [place], | [address] [place] | | | | | [place] [address] | [place] [address] | | | | | [phone] | | | | | | | [...]
--- OUTSIDE RECORDS SUMMARY | ~2019-04-20 | XMS | Encounter Summary ---
Demographics + + + | Address | [address] | | | [place] [address] | + + + | Home Phone | | + + + | Preferred Language | Unknown | + + + | Marital Status | | + + + | Mu-Ism Affiliation | Unknown | + + + | Race | Unknown | + + + | Ethnic Group | Unknown | + + + Author + + + | Author | [facility] | | | and [place] | + + + | Organization | [facility] | | | and [place] | + + + | Address | Unknown | + + + | Phone | Unavailable | + + + Support + + + + + | Name | Relationship | Address | Phone | + + + + + | Suzie Stafford | ECON | [address] | | | | | [place] | | | | | [address] | | + + + + + Care Team Providers + +------+ + | Care Associate Sales Manager Name | Role | Phone | + +------+ + PCP | Unavailable | + +------+ + Encounter Details +--------+ + + + + | Date | Type | Department | Care Team | Description | +--------+ + + + + | 01/26/ | Abstract | [facility] | Angela Weldon | | | 2011 | | Conversion Location | MD [address] | | | | | [phone] | [address] | | | | | | [place] [address] | | | | | | [phone] | | | | | | | [...]
--- OUTSIDE RECORDS SUMMARY | ~2019-04-20 | XMS | Encounter Summary ---
Demographics + + + | Address | [address] | | | [place] [address] | + + + | Home Phone | | + + + | Preferred Language | Unknown | + + + | Marital Status | | + + + | Mandaeism Affiliation | Unknown | + + + | Race | Unknown | + + + | Ethnic Group | Unknown | + + + Author + + + | Author | [facility] | | | and [place] | + + + | Organization | [facility] | | | and [place] | + + + | Address | Unknown | + + + | Phone | Unavailable | + + + Support + + + + + | Name | Relationship | Address | Phone | + + + + + | Suzie Stafford | ECON | [address] | | | | | [place], [place] | | | | | [address] | | + + + + + Care Team Providers + +------+ + | Care Interpreter Name | Role | Phone | + [...] | SR | | | | | [phone] | | | +--------+ + + + [...]
--- OUTSIDE RECORDS SUMMARY | ~2019-04-20 | XMS | Encounter Summary ---
Demographics + + + | Address | [address] | | | [place] [address] | + + + | Home Phone | | + + + | Preferred Language | Unknown | + + + | Marital Status | | + + + | Synagogue Affiliation | Unknown | + + + | Race | Unknown | + + + | Ethnic Group | Unknown | + + + Author + + + | Author | [facility] | | | and [place] | + + + | Organization | [facility] | | | and [place] | + + + | Address | Unknown | + + + | Phone | Unavailable | + + + Support + + + + + | Name | Relationship | Address | Phone | + + + + + | Suzie Stafford | ECON | [address] | | | | | [place] | | | | | [address] | | + + + + + Care Team Providers + +------+ + | Care Russian History Professor Name | Role | Phone | [...] + + | 02/01/ | Telephone | [facility] | WilverFlorentinEfrain | Appointment | | 2012 | | [address] | MD [address] | | | | | [place], | [address] [place] [address] [place] | | | | | [place] [address] | [place] [address] | | | | | [phone] | [phone] | | | | | | | [...]
--- OUTSIDE RECORDS SUMMARY | ~2019-04-20 | XMS | Encounter Summary ---
Demographics + + + | Address | [address] | | | [place] [address] | + + + | Home Phone | | + + + | Preferred Language | Unknown | + + + | Marital Status | | + + + | Religion Affiliation | Unknown | + + + | Race | Unknown | + + + | Ethnic Group | Unknown | + + + Author + + + | Author | [facility] | | | and [place] | + + + | Organization | [facility] | | | and [place] | + + + | Address | Unknown | + + + | Phone | Unavailable | + + + Support + + + + + | Name | Relationship | Address | Phone | + + + + + | Suzie Stafford | ECON | [address] | | | | | [place] | | | | | [address] | | + + + + + Care Team Providers + +------+ + | Care Jacquard Fixer Name | Role | Phone | + [...] + + | 02/21/ | Telephone | [facility] | WilverFlorentinEfrain | Appointment | | 2012 | | [address] | MD [address] | | | | | [place], | [address] [place] | | | | | [place] [address] | [place] [address] | | | | | [phone] | | | | | | | [...]
--- OUTSIDE RECORDS SUMMARY | ~2019-04-20 | XMS | Encounter Summary ---
Demographics + + + | Address | [address] | | | [place] [address] | + + + | Home Phone | | + + + | Preferred Language | Unknown | + + + | Marital Status | | + + + | Nondenominational Affiliation | Unknown | + + + | Race | Unknown | + + + | Ethnic Group | Unknown | + + + Author + + + | Author | [facility] | | | and [place] | + + + | Organization | [facility] | | | and [place] | + + + | Address | Unknown | + + + | Phone | Unavailable | + + + Support + + + + + | Name | Relationship | Address | Phone | + + + + + | Suzie Stafford | ECON | [address] | | | | | [place] | | | | | [address] | | + + + + + Care Team Providers + +------+ + | Care Publicist Name | Role | Phone | + [...] | 07/25/ | Office | [facility] | Efrain Pettit | Chest pain (Primary | | 2012 | Visit | CARDIOLOGY [address] | MD [address] | Dx); Coronary | | | | [place], | [address] [place] | atherosclerosis due | | | | [place] [address] | [place] [address] | to lipid rich | | | | [phone] | [phone] | plaque; Dyslipidemia | | | | [...] patient's prior angiogram 5 years ago at [facility]. He also underwent transthoracic echocardiogram which showed [...] Years of Education: N/A Occupational History general manager Disabled Social History Main Topics Smoking status: [...]
--- OUTSIDE RECORDS SUMMARY | ~2019-04-20 | XMS | Clinical Summary ---
Demographics + + + | Address | [address] | | | [place] [address] | + + + | Home Phone | | + + + | Preferred Language | Unknown | + + + | Marital Status | | + + + | Catholic Affiliation | Unknown | + + + | Race | Unknown | + + + | Ethnic Group | Unknown | + + + Author + + + | Author | [facility] (Histor[facility] as of | | | 12-08-18) | + + + | Organization | [facility] (Historical as of | | | 12-08-18) [...] [place] | | | | | [address] | | + + + + + Care Team Providers + +------+ + | Care Flight Nurse Name | Role | Phone | + [...]
--- OUTSIDE RECORDS SUMMARY | ~2019-04-20 | XMS | Encounter Summary ---
Demographics + + + | Address | [address] | | | [place] [address] | + + + | Home Phone | | + + + | Preferred Language | Unknown | + + + | Marital Status | | + + + | Christian Affiliation | Unknown | + + + | Race | Unknown | + + + | Ethnic Group | Unknown | + + + Author + + + | Author | [facility] | | | and [place] | + + + | Organization | [facility] | | | and [place] | + + + | Address | Unknown | + + + | Phone | Unavailable | + + + Support + + + + + | Name | Relationship | Address | Phone | + + + + + | Suzie Stafford | ECON | [address] | | | | | [place], [place] | | | | | [address] | | + + + + + Care Team Providers + +------+ + | Care Associate Professor Of Biology Name | Role | Phone | + +------+ + | Gutierrez Jenkins PA-C | PCP | | + +------+ + Encounter Details +--------+ + + + + | Date | Type | Department | Care Team | Description | +--------+ + + + + | 09/21/ | Hospital | [facility] | Cosme Galvan, | | | 2012 | Encounter | MED CTR GENERIC OP | MD [address] | | | | | CONV DEPT [address] | [place], [place] | | | | | [place], | [address] | | | | | [place] [address] | | | | | | [phone] | | | +--------+ + + + [...] + + + +---------+ + + | albuterol | Inhale 2 puffs into | | 0 | | | | (VENTOLIN HFA) 90 | the lungs every 6 | | | | | | mcg/puff inhaler | hours as needed. | | | | | + + + +---------+ + + | aspirin 81 mg EC | Take 81 mg by mouth | | 0 | 01/04/20 | | | tablet | Daily. | | | 12 | | + + + +---------+ + + | | Take 1 tablet by | | 0 | | | | HYDROcodone-acetamin | mouth every 8 hours | | | | | | ophen (NORCO) | as needed. | | | | | | 7.5-325 mg per | | | | | | | tablet | | | | | | + + + +---------+ + + | medical marijuana | Inhale 2 puffs into | | 0 | | | | (CANNABIS) | the lungs as needed. | | | | | | inhalation | | | | | | + + + +---------+ + + | mupirocin | Apply topically 2 | | 0 | | | | (BACTROBAN) 2% | times daily. | | | | | | ointment | | | | | | + + + +---------+ + + | omeprazole | Take 20 mg by mouth | | 0 | 01/04/20 | | | (PRILOSEC) 20 mg | Daily. | | | 12 | | | capsule | | | | | | + + + +---------+ + + | simvastatin | One tablet by mouth | 30 | 6 | 07/26/19 | | | (ZOCOR) 40 mg tablet | one time daily | tablet | | 13 | | + + + +---------+ + + | tiotropium | Inhale contents of | 10 | 0 | 08/31/19 | | | (SPIRIVA HANDIHALER) | one capsule once | capsule | | 13 | | | 18 mcg inhalation | daily (do not | | | | | | capsuleIndications: | swallow capsules) | | | | | | COPD (chronic | | | | | | | obstructive | | | | | | | pulmonary disease) | | | | | | | ([facility]) | | | | | | + + + +---------+ + + documented as of this encounter Plan of Treatment Not on filedocumented as of this encounter Visit Diagnoses Not on filedocumented in this encounter"
--- OUTSIDE RECORDS SUMMARY | ~2019-04-20 | XMS | Encounter Summary ---
Demographics + + + | Address | [address] | | | [place] [address] | + + + | Home Phone | | + + + | Preferred Language | Unknown | + + + | Marital Status | | + + + | Methodist Affiliation | Unknown | + + + | Race | Unknown | + + + | Ethnic Group | Unknown | + + + Author + + + | Author | [facility] | | | and [place] | + + + | Organization | [facility] | | | and [place] | + + + | Address | Unknown | + + + | Phone | Unavailable | + + + Support + + + + + | Name | Relationship | Address | Phone | + + + + + | Suzie Stafford | ECON | [address] | | | | | [place], [place] | | | | | [address] | | + + + + + Care Team Providers + +------+ + | Care Nurse Assistant Name | Role | Phone | + [...] | status | [address] | [place] [address] | | | | | asthmaticus | JANNETH, | Phone: | | | | | ([facility]) | [place] [address] | [phone] | | | | | Procedures | Phone: | Fax: | | | | | [place] OFFICE | [phone] | [phone] | | | | | OUTPATIENT | Fax: | | | | | | NEW 45 | [phone] | | | | | | MINUTES | | | +--------+--------+ + + + + Encounter Details +--------+---------+ + + + | Date | Type | Department | Care Team | Description | +--------+---------+ + + + | 08/30/ | Office | [facility] | Cosme Galvan, | COPD (chronic | | 2013 | Visit | PULMONARY [address] | MD [address] | obstructive | | | | [place], | [place], [place] | pulmonary disease) | | | | [place] [address] | [address] | ([facility]) (Primary Dx); | | | | [phone] | | Asbestos exposure | +--------+---------+ + [...] 30s. The patient likewise works as a mechanic welder. He denies well enough hard metal. 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 For 10 months in 1984 the patient was involved in the removal of the past best as containing insulation as part of her remodeled project. 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 Past Medical History [...] today. Pulmonary function tests were performed at [facility] but again unfortunately are not available for [...] daily. 3. To simplify function tests from [facility] to review. 4. Recent chest x-ray requested [...]
--- OUTSIDE RECORDS SUMMARY | ~2019-04-20 | XMS | Encounter Summary ---
Demographics + + + | Address | [address] | | | [place] [address] | + + + | Home Phone | | + + + | Preferred Language | Unknown | + + + | Marital Status | | + + + | Confucianism Affiliation | Unknown | + + + | Race | Unknown | + + + | Ethnic Group | Unknown | + + + Author + + + | Author | [facility] | | | and [place] | + + + | Organization | [facility] | | | and [place] | + + + | Address | Unknown | + + + | Phone | Unavailable | + + + Support + + + + + | Name | Relationship | Address | Phone | + + + + + | Suzie Stafford | ECON | [address] | | | | | [place], [place] | | | | | [address] | | + + + + + Care Team Providers + +------+ + | Care Cesspool Cleaner Name | Role | Phone | + +------+ + PCP | Unavailable | + +------+ + Encounter Details +--------+ + + + + | Date | Type | Department | Care Team | Description | +--------+ + + + + | 04/13/ | [facility] | [facility] | Lucinda Salazar | | | 2008 | Encounter | MED CTR EMERGENCY | Kota Carl MD [address] | | | | | [place] [address] | [facility] | | | | | [place] | [place] [address] | | | | | [address] | [phone] | | | | | [phone] | | | +--------+ + + + [...]
--- OUTSIDE RECORDS SUMMARY | ~2019-04-20 | XMS | Encounter Summary ---
Demographics + + + | Address | [address] | | | [place] [address] | + + + | Home Phone | | + + + | Preferred Language | Unknown | + + + | Marital Status | | + + + | Mu-Ism Affiliation | Unknown | + + + | Race | Unknown | + + + | Ethnic Group | Unknown | + + + Author + + + | Author | [facility] | | | and [place] | + + + | Organization | [facility] | | | and [place] | + + + | Address | Unknown | + + + | Phone | Unavailable | + + + Support + + + + + | Name | Relationship | Address | Phone | + + + + + | Suzie Stafford | ECON | [address] | | | | | [place] | | | | | [address] | | + + + + + Care Team Providers + +------+ + | Care Turkey Picker Name | Role | Phone | + [...] [address] | | | | | [place], | [address] [place] | | | | | [place] [address] | [place] [address] | | | | | [phone] | [phone] | | | | | | | [...]
--- OUTSIDE RECORDS SUMMARY | ~2019-04-20 | XMS | Clinical Summary ---
Demographics + + + | Address | [address] | | | [place] [address] | + + + | Home Phone | | + + + | Preferred Language | Unknown | + + + | Marital Status | | + + + | Buddhist Affiliation | Unknown | + + + [...] Providers + +------+ + | Care Political Advisor Name | Role | Phone | + +------+ + PCP | Unavailable | + +------+ + Source Comments DANIELLE is fully live on both [facility] Ambulatory and [facility] InPatient.[facility]ly [facility] Allergies Not on File Medications Not on [...]
--- OUTSIDE RECORDS SUMMARY | ~2019-04-20 | XMS | Encounter Summary ---
Demographics + + + | Address | [address] | | | [place] [address] | + + + | Home Phone | | + + + | Preferred Language | Unknown | + + + | Marital Status | | + + + | Muslim Affiliation | Unknown | + + + | Race | Unknown | + + + | Ethnic Group | Unknown | + + + Author + + + | Author | [facility] | | | and [place] | + + + | Organization | [facility] | | | and [place] | + + + | Address | Unknown | + + + | Phone | Unavailable | + + + Support + + + + + | Name | Relationship | Address | Phone | + + + + + | Suzie Stafford | ECON | [address] | | | | | [place], [place] | | | | | [address] | | + + + + + Care Team Providers + +------+ + | Care Home Health Scheduler Name | Role | Phone | + +------+ + PCP | Unavailable | + +------+ + Encounter Details +--------+ + + + + | Date | Type | Department | Care Team | Description | +--------+ + + + + | 11/20/ | [facility] | [facility] | Efrain Caraballo | | | 2011 | Encounter | MED CTR XRAY [address] | MD González [address] | | | | | [place] | [place] | | | | | [place] [address] | [place] [address] | | | | | [phone] | | | | | | | [...] Performed At | + + + | [facility] Diagnostic [facility] | [facility] | | [address] [facility] | [facility] | | BILATERAL DUPLEX CAROTID | [...] Transcribed Date/Time: 11/21/2011 11:26 | | | Battery Vent Plug Inserter: <Electronically Signed by Yossi Fay MD> | | | 11/21/11 2149 | | + + + + + | Procedure Note | + + | Deepak, Raul Conversion - 05/31/2013 5:[address] [facility] | | Diagnostic Imaging Department | | [address], [place] | | | | | | [...] | Transcribed Date/Time: 11/21/2011 11:26 | | Battery Vent Plug Inserter: | | <Electronically Signed by Yossi Fay MD> 11/21/11 0402 | + + + +---------+ + + [...] Performed At | + + + | [facility] Diagnostic Imaging Department | [facility] | | [address] [facility] | [facility] | | E C H O C A R D | DIAG IMG | | I O G R A P H Y R E P O R T HEIGHT: 5'10" | | | WEIGHT: 195# POP SINGER: JW REFERRING DR: RASHMI | | | [...] Transcribed Date/Time: 11/21/2011 16:54 | | | Battery Vent Plug Inserter: <Electronically Signed by Siddhartha Caraballo, | | | MD> 11/25/11 0922 | | + + + + + | Procedure Note | + + | Deepak, Rad Conversion - 05/31/2013 5:[address] [facility] | | Diagnostic Imaging Department | | [address] [facility] | | | | | | | | E C H O C A R D I O G R A P H Y R E P O R T | | | | | | HEIGHT: 5'10" WEIGHT: 195# POP SINGER: JW | | REFERRING DR: RASHMI MAGAÑA [...] | Transcribed Date/Time: 11/21/2011 16:54 | | Battery Vent Plug Inserter: | | <Electronically Signed by Siddhartha Caraballo [...]
--- OUTSIDE RECORDS SUMMARY | ~2019-04-20 | XMS | Encounter Summary ---
Demographics + + + | Address | [address] | | | [place] [address] | + + + | Home Phone | | + + + | Preferred Language | Unknown | + + + | Marital Status | | + + + | Yazidi Affiliation | Unknown | + + + | Race | White | + + + | Ethnic Group | Not or | + + + Author + + + | Author | [facility] | + + + | Organization | [facility] | + + + | Address [...] Team Providers + +------+ + | Care Desktop Publishing Operator Name | Role | Phone | [...]
--- OUTSIDE RECORDS SUMMARY | ~2019-04-20 | XMS | Clinical Summary ---
Demographics + + + | Address | [address] | | | [place] [address] | + + + | Home Phone [...] Team Providers + +------+ + | Care Lawyer Real Estate Name | Role | Phone | + +------+ + PCP | Unavailable | + +------+ + Source Comments DANIELLE is fully live on both [facility] Ambulatory and [facility] InPatient.Formerly [facility] Allergies Not on File Medications Not on [...]
--- OUTSIDE RECORDS SUMMARY | ~2019-04-20 | XMS | Encounter Summary ---
Demographics + + + | Address | [address] | | | [place] [address] | + + + | Home Phone | | + + + | Preferred Language | Unknown | + + + | Marital Status | | + + + | Jainism Affiliation | Unknown | + + + | Race | Unknown | + + + | Ethnic Group | Unknown | + + + Author + + + | Author | [facility] | | | and [place] | + + + | Organization | [facility] | | | and [place] | + + + | Address | Unknown | + + + | Phone | Unavailable | + + + Support + + + + + | Name | Relationship | Address | Phone | + + + + + | Suzie Stafford | ECON | [address] | | | | | [place] | | | | | [address] | | + + + + + Care Team Providers + +------+ + | Care Director Of Placement Name | Role | Phone | + [...] + + | 02/21/ | Telephone | [facility] | WilverFlorentinEfrain | Appointment | | 2012 | | [address] | MD González [address] | | | | | [place], | [address] [place] | | | | | [place] [address] | [place] [address] | | | | | [phone] | | | | | | | [...]
--- OUTSIDE RECORDS SUMMARY | ~2019-04-20 | XMS | Encounter Summary ---
Demographics + + + | Address | [address] | | | [place] [address] | + + + | Home Phone | | + + + | Preferred Language | Unknown | + + + | Marital Status | | + + + | Zoroastrianism Affiliation | Unknown | + + + | Race | Unknown | + + + | Ethnic Group | Unknown | + + + Author + + + | Author | [facility] | | | and [place] | + + + | Organization | [facility] | | | and [place] | + + + | Address | Unknown | + + + | Phone | Unavailable | + + + Support + + + + + | Name | Relationship | Address | Phone | + + + + + | Suzie Stafford | ECON | [address] | | | | | [place], [place] | | | | | [address] | | + + + + + Care Team Providers + +------+ + | Care Subgrade Roller Operator Name | Role | Phone | + +------+ + PCP | Unavailable | + +------+ + Encounter Details +--------+ + + + + | Date | Type | Department | Care Team | Description | +--------+ + + + + | 11/21/ | [facility] | [facility] | Efrain Pettit | | | 2011 | Encounter | MED CTR XRAY [address] | MD González [address] | | | | | [place] | [place] | | | | | [place] [address] | [place], [place] [address] | | | | | [phone] | | | | | | | [...] + | BRAD [facility] | [address] | [place] | [phone] | | [facility] | | [address] | | | - LABORATORY | | | | + + + + + | [facility] | [address] | [place] | | | [facility] | | [address] | | | - LABORATORY | | [...] + | [facility] | [address] | [place] | [phone] | | [facility] | | [address] | | | - LABORATORY | | | | + + + + + | [facility] | [address] | [place] | | | [facility] | | [address] | | | - LABORATORY | | | | + + + + + CV Adult Cardiac Cath Diag/PCI (11/22/2011 7:24 AM PDT) + + | Specimen | + + | | + + + + + | Narrative | Performed At | + + + | [facility] Diagnostic Imaging Department | [facility] | | [address] [facility] [address] | [facility] | | CARDIAC CATHETERIZATION | DIAG IMG [...] | | | was obtained using #6 Cook Islander sheath in the right femoral artery. Le | | | ft heart catheterization and left ventriculography were then | | | performed in this patient. Selective co ronary angiography was then | | | performed in several sagittal and oblique projections using #6 Cook Islander | | | JL 4 and #6 Cook Islander JR 4 diagnostic catheters. The patient | [...] Transcribed Date/Time: 11/22/2011 11:26 | | | Ad Taker: <Electronically Signed by Siddhartha Pettit, | | | MD> 11/25/11 0922 | | + + + + + | Procedure Note | + + | Raul Sotelo Conversion - 05/31/2013 5:47 PM [facility] | | Diagnostic Imaging Department [address] | | CARDIAC CATHETERIZATION LABORATORY NOTE, 11/22/2011 | | CLINICAL HISTORY: CHEST PAIN, CORONARY ARTERY DISEASE. PROCEDURE: After informed | | consent was obtained, the patient was taken to the cardiac catheterization laboratory | | where he was prepared and draped in the usual fashion. Under sterile technique and | | local anesthesia, percutaneous access was obtained using #6 Cook Islander sheath in the right | | femoral artery. Left heart catheterization and left ventriculography were then | | performed in this patient. Selective coronary angiography was then performed in several | | sagittal and oblique projections using #6 Cook Islander JL 4 and #6 Cook Islander JR 4 diagnostic | | catheters. The [...] diagonal branches | | and numerous septal bottom wheeler branches. In its mid portion, there is [...] 10:22 | |Transcribed Date/Time: 11/22/2011 11:26 | |Ad Taker: | |<Electronically Signed by Siddhartha Pettit MD> [...]
--- OUTSIDE RECORDS SUMMARY | ~2019-04-20 | XMS | Encounter Summary ---
Demographics + + + | Address | [address] | | | [place] [address] | + + + | Home Phone | | + + + | Preferred Language | Unknown | + + + | Marital Status | | + + + | Restorationist Affiliation | Unknown | + + + | Race | Unknown | + + + | Ethnic Group | Unknown | + + + Author + + + | Author | [facility] | | | and [place] | + + + | Organization | [facility] | | | and [place] | + + + | Address | Unknown | + + + | Phone | Unavailable | + + + Support + + + + + | Name | Relationship | Address | Phone | + + + + + | Suzie Stafford | ECON | [address] | | | | | [place], [place] | | | | | [address] | | + + + + + Care Team Providers + +------+ + | Care Veneer Sander Name | Role | Phone | + +------+ + PCP | Unavailable | + +------+ + Encounter Details +--------+ + + + + | Date | Type | Department | Care Team | Description | +--------+ + + + + | [facility] | Efrain Pettit | | | 2011 | Encounter | MED CTR XRAY [address] | MD González [address] | | | | | [place] | [place] | | | | | [place] [address] | [place], [place] [address] | | | | | [phone] | | | | | | | [...] + | [facility] | [address] | [place] | [phone] | | [facility] | | [address] | | | - LABORATORY | | | | + + + + + | [facility] | [address] | [place] | | | [facility] | | [address] | | | - LABORATORY | | [...] + | [facility] | [address] | [place] | [phone] | | [facility] | | [address] | | | - LABORATORY | | | | + + + + + | [facility] | [address] | [place] | | | [facility] | | [address] | | | - LABORATORY | | | | + + + + + CV Adult Cardiac Cath Diag/PCI (11/22/2011 7:24 AM PDT) + + | Specimen | + + | | + + + + + | Narrative | Performed At | + + + | [facility] Diagnostic Imaging Department | [facility] | | [address] [facility] | [facility] | | CARDIAC CATHETERIZATION | DIAG IMG [...] | | | was obtained using #6 Mozambican sheath in the right femoral artery. Le | | | ft heart catheterization and left ventriculography were then | | | performed in this patient. Selective co ronary angiography was then | | | performed in several sagittal and oblique projections using #6 Mozambican | | | JL 4 and #6 Mozambican JR 4 diagnostic catheters. The patient | [...] Transcribed Date/Time: 11/22/2011 11:26 | | | Contract Technical Writer: <Electronically Signed by Siddhartha Pettit, | | | MD> 11/25/11 0922 | | + + + + + | Procedure Note | + + | Raul Sotelo Conversion - 05/31/2013 5:47 PM [facility] | | Diagnostic Imaging Department [address] [facility] | | CARDIAC CATHETERIZATION LABORATORY NOTE, 11/22/2011 | | CLINICAL HISTORY: CHEST PAIN, CORONARY ARTERY DISEASE. PROCEDURE: After informed | | consent was obtained, the patient was taken to the cardiac catheterization laboratory | | where he was prepared and draped in the usual fashion. Under sterile technique and | | local anesthesia, percutaneous access was obtained using #6 Mozambican sheath in the right | | femoral artery. Left heart catheterization and left ventriculography were then | | performed in this patient. Selective coronary angiography was then performed in several | | sagittal and oblique projections using #6 Mozambican JL 4 and #6 Mozambican JR 4 diagnostic | | catheters. The [...] diagonal branches | | and numerous septal epic ambulatory analyst branches. In its mid portion, there is [...] 10:22 | |Transcribed Date/Time: 11/22/2011 11:26 | |Contract Technical Writer: | |<Electronically Signed by Siddhartha Pettit MD> [...]
--- OUTSIDE RECORDS SUMMARY | ~2019-04-20 | XMS | Encounter Summary ---
Demographics + + + | Address | [address] | | | [place] [address] | + + + | Home Phone | | + + + | Preferred Language | Unknown | + + + | Marital Status | | + + + | Amish Affiliation | Unknown | + + + | Race | Unknown | + + + | Ethnic Group | Unknown | + + + Author + + + | Author | [facility] | | | and [place] | + + + | Organization | [facility] | | | and [place] | + + + | Address | Unknown | + + + | Phone | Unavailable | + + + Support + + + + + | Name | Relationship | Address | Phone | + + + + + | Suzie Stafford | ECON | [address] | | | | | [place], [place] | | | | | [address] | | + + + + + Care Team Providers + +------+ + | Care Pastoral Worker Name | Role | Phone | + +------+ + PCP | Unavailable | + +------+ + Encounter Details +--------+ + + + + | Date | Type | Department | Care Team | Description | +--------+ + + + + | 01/19/ | Hospital | [facility] | Rubin Moreira | Other Chest Pain | | 2006 | Encounter | [facility] | [address] | | | | | CARE FLO[address] | [address] [place] | | | | | [address] | [address] | | | | | [place], [place] | | | | | | [address] | | | | | | [phone] | | | +--------+ + + + [...]
--- OUTSIDE RECORDS SUMMARY | ~2019-04-20 | XMS | Encounter Summary ---
Demographics + + + | Address | [address] | | | [place] [address] | + + + | Home Phone [...] | Author | [facility] | | | and [place] | + + + | Organization | [facility] | | | and [place] | + + + | Address | Unknown | + + + | Phone | Unavailable | + + + Support + + + + + | Name | Relationship | Address | Phone | + + + + + | Suzie Stafford | ECON | [address] | | | | | [place] | | | | | [address] | | + + + + + Care Team Providers + +------+ + | Care Film Process Operator Name | Role | Phone | [...] + + | 09/21/ | [facility] | [facility] | Cosme Galvan, | Chronic bronchitis | | 2012 | Visit | PULMONARY [address] | MD [address] | ([facility]) (Primary Dx); | | | | [place], | [place], [place] | COPD (chronic | | | | [place] [address] | [address] | obstructive | | | | [phone] | | pulmonary disease) | | | | | | ([facility]) | +--------+---------+ + + + [...]
--- OUTSIDE RECORDS SUMMARY | ~2019-04-20 | XMS | Clinical Summary ---
Demographics + + + | Address | [address] | | | [place] [address] | + + + | Home Phone | | + + + | Preferred Language | Unknown | + + + | Marital Status | | + + + | Episcopalian Affiliation | Unknown | + + + | Race | Unknown | + + + | Ethnic Group | Unknown | + + + Author + + + | Author | [facility] (Historical as of | | | 12-08-18) | + + + | Organization | [facility] (Historical as of | | | 12-08-18) [...] [place] | | | | | [address] | | + + + + + Care Team Providers + +------+ + | Care Medical Resident Name | Role | Phone | + [...]
--- OUTSIDE RECORDS SUMMARY | ~2019-04-20 | XMS | Encounter Summary ---
Demographics + + + | Address | [address] | | | [place] [address] | + + + | Home Phone | | + + + | Preferred Language | Unknown | + + + | Marital Status | | + + + | Scientology Affiliation | Unknown | + + + | Race | Unknown | + + + | Ethnic Group | Unknown | + + + Author + + + | Author | [facility] | | | and [place] | + + + | Organization | [facility] | | | and [place] | + + + | Address | Unknown | + + + | Phone | Unavailable | + + + Support + + + + + | Name | Relationship | Address | Phone | + + + + + | Suzie Stafford | ECON | [address] | | | | | [place], [place] | | | | | [address] | | + + + + + Care Team Providers + +------+ + | Care Oncology Specialist Name | Role | Phone | + +------+ + | Gutierrez Jenkins PA-C | PCP | | + +------+ + Encounter Details +--------+ + + + + | Date | Type | Department | Care Team | Description | +--------+ + + + + | 07/25/ | Hospital | [facility] | Efrain Pettit | Hyperlipidemia; CAD | | 2012 - | Encounter | MED CTR LABORATORY | MD González [address] | (coronary artery | | | | [address] [place] | [address] [place] | disease) | | 07/27/ | | [place] | [place] [address] | | | 2012 | | [address] | [phone] | | | | | [phone] | | | +--------+ + + + [...] | + + + + + | [address] [facility] | [address] | [place] | [phone] | | [facility] | | [address] | | | - LABORATORY | | | | + + + + + | [address] [facility] | [address] | [place], [place] | | | [facility] | | [address] | | | - LABORATORY | | | | + + + + + documented in this encounter Visit Diagnoses + + | Diagnosis | + + | Hyperlipidemia Other and unspecified hyperlipidemia | + + | CAD (coronary artery disease) Coronary atherosclerosis of unspecified type of vessel, | | [place] or graft | + + documented in this encounter"
--- OUTSIDE RECORDS SUMMARY | ~2019-04-20 | XMS | Encounter Summary ---
Demographics + + + | Address | [address] | | | [place] [address] | + + + | Home Phone | | + + + | Preferred Language | Unknown | + + + | Marital Status | | + + + | Restorationist Affiliation | Unknown | + + + | Race | Unknown | + + + | Ethnic Group | Unknown | + + + Author + + + | Author | [facility] | | | and [place] | + + + | Organization | [facility] | | | and [place] | + + + | Address | Unknown | + + + | Phone | Unavailable | + + + Support + + + + + | Name | Relationship | Address | Phone | + + + + + | Suzie Stafford | ECON | [address] | | | | | [place], [place] | | | | | [address] | | + + + + + Care Team Providers + +------+ + | Care Tack Puller Name | Role | Phone | + +------+ + | Gutierrez Jenkins PA-C | PCP | | + +------+ + Encounter Details +--------+ + + + + | Date | Type | Department | Care Team | Description | +--------+ + + + + | 09/21/ | Hospital | [facility] | Cosme Galvan, | | | 2012 | Encounter | MED CTR GENERIC OP | MD [address] | | | | | CONV DEPT [address] | [place], [place] | | | | | [place], | [address] | | | | | [place] [address] | | | | | | [phone] | | | +--------+ + + + [...] [facility]) | | | | | | + + + +---------+ + + documented as of this encounter Plan of Treatment Not on filedocumented as of this encounter Visit Diagnoses Not on filedocumented in this encounter"
--- OUTSIDE RECORDS SUMMARY | ~2019-04-20 | XMS | Encounter Summary ---
Demographics + + + | Address | [address] | | | [place] [address] | + + + | Home Phone | | + + + | Preferred Language | Unknown | + + + | Marital Status | | + + + | Shinto Affiliation | Unknown | + + + | Race | Unknown | + + + | Ethnic Group | Unknown | + + + Author + + + | Author | [facility] | | | and [place] | + + + | Organization | [facility] | | | and [place] | + + + | Address | Unknown | + + + | Phone | Unavailable | + + + Support + + + + + | Name | Relationship | Address | Phone | + + + + + | Suzie Stafford | ECON | [address] | | | | | [place], [place] | | | | | [address] | | + + + + + Care Team Providers + +------+ + | Care Vermin Exterminator Name | Role | Phone | + [...] [address] | obstructive | | | | [place], | [place], [place] | pulmonary disease) | | | | [place] [address] | [address] | (HCC) (Primary Dx); | | | | [phone] | | Mitral stenosis with | | [...]
--- OUTSIDE RECORDS SUMMARY | ~2019-04-20 | XMS | Encounter Summary ---
Demographics + + + | Address | [address] | | | [place] [address] | + + + | Home Phone | | + + + | Preferred Language | Unknown | + + + | Marital Status | | + + + | Yazidism Affiliation | Unknown | + + + | Race | Unknown | + + + | Ethnic Group | Unknown | + + + Author + + + | Author | [facility] | | | and [place] | + + + | Organization | [facility] | | | and [place] | + + + | Address | Unknown | + + + | Phone | Unavailable | + + + Support + + + + + | Name | Relationship | Address | Phone | + + + + + | Suzie Stafford | ECON | [address] | | | | | [place], [place] | | | | | [address] | | + + + + + Care Team Providers + +------+ + | Care Director Child Development Center Name | Role | Phone | + +------+ + | Gutierrze Jenkins PA-C | PCP | | + [...] [address] | obstructive | | | | [place], | [place], [place] | pulmonary disease) | | | | [place] [address] | [address] | (HCC) (Primary Dx); | | | | [phone] | | Mitral stenosis with | | [...]
--- OUTSIDE RECORDS SUMMARY | ~2019-04-20 | XMS | Encounter Summary ---
Demographics + + + | Address | [address] | | | [place] [address] | + + + | Home Phone [...] + + | Author | [facility] | | | and [place] | + + + | Organization | [facility] | | | and [place] | + + + | Address | Unknown | + + + | Phone | Unavailable | + + + Support + + + + + | Name | Relationship | Address | Phone | + + + + + | Suzie Stafford | ECON | [address] | | | | | [place] | | | | | [address] | | + + + + + Care Team Providers + +------+ + | Care Tax Manager Public Name | Role | Phone | + [...] [address] | UP) | | | | [place], | [place], [place] | | | | | [place] [address] | [address] | | | | | [phone] | | | +--------+ + + + [...]
--- OUTSIDE RECORDS SUMMARY | ~2019-04-20 | XMS | Encounter Summary ---
Demographics + + + | Address | [address] | | | [place] [address] | + + + | Home Phone | | + + + | Preferred Language | Unknown | + + + | Marital Status | | + + + | Hoahaoism Affiliation | Unknown | + + + | Race | Unknown | + + + | Ethnic Group | Unknown | + + + Author + + + | Author | [facility] | | | and [place] | + + + | Organization | [facility] | | | and [place] | + + + | Address | Unknown | + + + | Phone | Unavailable | + + + Support + + + + + | Name | Relationship | Address | Phone | + + + + + | Suzie Stafford | ECON | [address] | | | | | [place] | | | | | [address] | | + + + + + Care Team Providers + +------+ + | Care Sharepoint Developer Name | Role | Phone | + [...] [address] | UP) | | | | [place], | [place], [place] | | | | | [place] [address] | [address] | | | | | [phone] | | | +--------+ + + + [...]
--- OUTSIDE RECORDS SUMMARY | ~2019-04-20 | XMS | Encounter Summary ---
Demographics + + + | Address | [address] | | | [place] [address] | + + + | Home Phone [...] | Author | [facility] | | | and [place] | + + + | Organization | [facility] | | | and [place] | + + + | Address | Unknown | + + + | Phone | Unavailable | + + + Support + + + + + | Name | Relationship | Address | Phone | + + + + + | Suzie Stafford | ECON | [address] | | | | | [place], [place] | | | | | [address] | | + + + + + Care Team Providers + +------+ + | Care Manager Exchange Name | Role | Phone | + [...] W | Dx) | | | | [place], | [address] [place] | | | | | [place] [address] | [place] [address] | | | | | [phone] | [phone] | | | | | | | [...]
--- OUTSIDE RECORDS SUMMARY | ~2019-04-20 | XMS | Encounter Summary ---
Demographics + + + | Address | [address] | | | [place] [address] | + + + | Home Phone | | + + + | Preferred Language | Unknown | + + + | Marital Status | | + + + | Quaker Affiliation | Unknown | + + + | Race | Unknown | + + + | Ethnic Group | Unknown | + + + Author + + + | Author | [facility] | | | and [place] | + + + | Organization | [facility] | | | and [place] | + + + | Address | Unknown | + + + | Phone | Unavailable | + + + Support + + + + + | Name | Relationship | Address | Phone | + + + + + | Suzie Stafford | ECON | [address] | | | | | [place] | | | | | [address] | | + + + + + Care Team Providers + +------+ + | Care Bar And Filler Assembler Name | Role | Phone | [...] [address] | | | | | [phone] | [address] | | | | | | [place] [address] | | | | | | [phone] | | | | | | | [...]
--- OUTSIDE RECORDS SUMMARY | ~2019-04-20 | XMS | Encounter Summary ---
Demographics + + + | Address | [address] | | | [place] [address] | + + + | Home Phone | | + + + | Preferred Language | Unknown | + + + | Marital Status | | + + + | Yazdanism Affiliation | Unknown | + + + | Race | Unknown | + + + | Ethnic Group | Unknown | + + + Author + + + | Author | [facility] | | | and [place] | + + + | Organization | [facility] | | | and [place] | + + + | Address | Unknown | + + + | Phone | Unavailable | + + + Support + + + + + | Name | Relationship | Address | Phone | + + + + + | Suzie Stafford | ECON | [address] | | | | | [place], [place] | | | | | [address] | | + + + + + Care Team Providers + +------+ + | Care Lead Project Engineer Name | Role | Phone | + +------+ + | Gutierrez Jenkins PA-C | PCP | | + +------+ + Encounter Details +--------+ + + + + | Date | Type | Department | Care Team | Description | +--------+ + + + + | 07/25/ | Hospital | [facility] | Efrain Pettit | Hyperlipidemia; CAD | | 2012 - | Encounter | MED CTR LABORATORY | MD González [address] | (coronary artery | | | | [address] [place] | [address] [place] | disease) | | 07/27/ | | [place] | [place] [address] | | | 2012 | | [address] | [phone] | | | | | [phone] | | | +--------+ + + + [...] | + + + + + | [facility] [facility] | [address] | [place] | [phone] | | [facility] | | [address] | | | - LABORATORY | | | | + + + + + | [address] [facility] | [address] | [place], [place] | | | [facility] | | [address] | | | - LABORATORY | | | | + + + + + documented in this encounter Visit Diagnoses + + | Diagnosis | + + | Hyperlipidemia Other and unspecified hyperlipidemia | + + | CAD (coronary artery disease) Coronary atherosclerosis of unspecified type of vessel, | | [place] or graft | + + documented in this encounter"
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
--- OUTSIDE RECORDS SUMMARY | ~2019-04-20 | XMS | Encounter Summary ---
Demographics + + + | Address | [address] | | | [place] [address] | + + + | Home Phone | | + + + | Preferred Language | Unknown | + + + | Marital Status | | + + + | Mu-Ism Affiliation | Unknown | + + + | Race | Unknown | + + + | Ethnic Group | Unknown | + + + Author + + + | Author | [facility] | | | and [place] | + + + | Organization | [facility] | | | and [place] | + + + | Address | Unknown | + + + | Phone | Unavailable | + + + Support + + + + + | Name | Relationship | Address | Phone | + + + + + | Suzie Stafford | ECON | [address] | | | | | [place] | | | | | [address] | | + + + + + Care Team Providers + +------+ + | Care Bottle Selector Name | Role | Phone | + +------+ + PCP | Unavailable | + +------+ + Encounter Details +--------+ + + + + | Date | Type | Department | Care Team | Description | +--------+ + + + + | 09/06/ | Hospital | [facility] | | | | 2010 | Encounter | MED CTR MP INTRA OP | | | | | | [address] | | | | | | [place] | | | | | | [address] | | | | | | [phone] | | | +--------+ + + + [...]
--- OUTSIDE RECORDS SUMMARY | ~2019-04-20 | XMS | Encounter Summary ---
Demographics + + + | Address | [address] | | | [place] [address] | + + + | Home Phone | | + + + | Preferred Language | Unknown | + + + | Marital Status | | + + + | Advent Affiliation | Unknown | + + + | Race | Unknown | + + + | Ethnic Group | Unknown | + + + Author + + + | Author | [facility] | | | and [place] | + + + | Organization | [facility] | | | and [place] | + + + | Address | Unknown | + + + | Phone | Unavailable | + + + Support + + + + + | Name | Relationship | Address | Phone | + + + + + | Suzie Stafford | ECON | [address] | | | | | [place] | | | | | [address] | | + + + + + Care Team Providers + +------+ + | Care Poultry Barn Manager Name | Role | Phone | [...] | 07/25/ | Office | [facility] | Efrain Pettit | Chest pain (Primary | | 2012 | Visit | CARDIOLOGY [address] | MD González [address] | Dx); Coronary | | | | [place], | [address] [place] | atherosclerosis due | | | | [place] [address] | [place] [address] | to lipid rich | | | | [phone] | [phone] | plaque; Dyslipidemia | | | | [...] patient's prior angiogram 5 years ago at [facility]. He also underwent transthoracic echocardiogram which showed [...] 8 Years of Education: N/A Occupational History warehouse general laborer Disabled Social History Main Topics Smoking status: [...]
--- OUTSIDE RECORDS SUMMARY | ~2019-04-20 | XMS | Encounter Summary ---
Demographics + + + | Address | [address] | | | [place] [address] | + + + | Home Phone | | + + + | Preferred Language | Unknown | + + + | Marital Status | | + + + | Holiness Affiliation | Unknown | + + + | Race | Unknown | + + + | Ethnic Group | Unknown | + + + Author + + + | Author | [facility] | | | and [place] | + + + | Organization | [facility] | | | and [place] | + + + | Address | Unknown | + + + | Phone | Unavailable | + + + Support + + + + + | Name | Relationship | Address | Phone | + + + + + | Suzie Stafford | ECON | [address] | | | | | [place], [place] | | | | | [address] | | + + + + + Care Team Providers + +------+ + | Care Shop Teacher Name | Role | Phone | + +------+ + PCP | Unavailable | + +------+ + Encounter Details +--------+ + + + + | Date | Type | Department | Care Team | Description | +--------+ + + + + | 11/20/ | [facility] | [facility] | Efrain Caraballo | | | 2011 | Encounter | MED CTR XRAY [address] | MD González [address] | | | | | [place] | [address] | | | | | [place] [address] | [place] [address] | | | | | [phone] | [phone] | | | | | | | [...] | [facility] | [facility] | | [address] [facility] [facility] | [facility] | | BILATERAL DUPLEX CAROTID | DIAG [...] Transcribed Date/Time: 11/21/2011 11:26 | | | Raw Products Director: <Electronically Signed by Yossi Fay MD> | | | 11/21/11 2149 | | + + + + + | Procedure Note | + + | Deepak, Raul Conversion - 05/31/2013 5:46 PM [facility] | | Diagnostic Imaging Department | | [address], [place] | | | | | | [...] | Transcribed Date/Time: 11/21/2011 11:26 | | Raw Products Director: | | <Electronically Signed by Yossi Fay MD> 11/21/11 0620 | + + + +---------+ + + [...] | [facility] | [facility] | | [address] [facility] | [facility] | | E C H O C A R D | DIAG IMG | | I O G R A P H Y R E P O R T HEIGHT: 5'10" | | | WEIGHT: 195# X RAY SERVICE ENGINEER: JW REFERRING DR: RASHMI | | | [...] Transcribed Date/Time: 11/21/2011 16:54 | | | Raw Products Director: <Electronically Signed by Siddhartha Caraballo, | | | MD> 11/25/11 0922 | | + + + + + | Procedure Note | + + | Deepak, Rad Conversion - 05/31/2013 5:46 PM [facility] | | Diagnostic Imaging Department | | [address] [facility] | | | | | | | | E C H O C A R D I O G R A P H Y R E P O R T | | | | | | HEIGHT: 5'10" WEIGHT: 195# X RAY SERVICE ENGINEER: JW | | REFERRING DR: RASHMI MAGAÑA [...] | Transcribed Date/Time: 11/21/2011 16:54 | | Raw Products Director: | | <Electronically Signed by Siddhartha Caraballo [...]
--- OUTSIDE RECORDS SUMMARY | ~2019-04-20 | XMS | Encounter Summary ---
Demographics + + + | Address | [address] | | | [place] [address] | + + + | Home Phone | | + + + | Preferred Language | Unknown | + + + | Marital Status | | + + + | Episcopalian Affiliation | Unknown | + + + | Race | Unknown | + + + | Ethnic Group | Unknown | + + + Author + + + | Author | [facility] | | | and [place] | + + + | Organization | [facility] | | | and [place] | + + + | Address | Unknown | + + + | Phone | Unavailable | + + + Support + + + + + | Name | Relationship | Address | Phone | + + + + + | Suzie Stafford | ECON | [address] | | | | | [place] | | | | | [address] | | + + + + + Care Team Providers + +------+ + | Care Calender Feeder Name | Role | Phone | [...] (Primary Dx); CAD | | | | [place], | [place] [address] [place] | (coronary artery | | | | [place] [address] | [place] [address] | disease) | | | | [phone] | [phone] | | | | | | | [...] + | [facility] | [address] | [place] | [phone] | | [facility] | | [address] | | | - LABORATORY | | | | + + + + + | [facility] | [address] | [place], [place] | | | [facility] | | [address] | | | - LABORATORY | | | | + + + + + documented in this encounter Visit Diagnoses + + | Diagnosis | + + | Hyperlipidemia - Primary Other and unspecified hyperlipidemia | + + | CAD (coronary artery disease) Coronary atherosclerosis of unspecified type of vessel, | | [place] or graft | + + documented in this encounter"
[~2019-04-20 07:49] MED LIST changes: +BENADRYL25 MG PO; +FLOMAX0.4 MG PO; +MORPHINE SULFAT15 MG PO; +ZOFRAN4 MG PO
[2019-04-20] MEDS ORDERED: ONDANSETRON ODT8 MG PO (12:26)
[2019-04-20] MEDS ORDERED: NORCO 7.5-3251 EACH PO (12:26)
== END 2019-04-20 12:42 | disposition home or self-care (01) ==
LOC: ED 07:49
DX: N20.1 Calculus of ureter (principal); Z87.442 Personal history of urinary calculi; I11.0 Hypertensive heart disease with heart failure; I50.9 Heart failure, unspecified; Z86.73 Personal history of transient ischemic attack (TIA), and cerebral infarction without residual deficits; F17.200 Nicotine dependence, unspecified, uncomplicated; Z88.5 Allergy status to narcotic agent; Z88.1 Allergy status to other antibiotic agents; Z88.8 Allergy status to other drugs, medicaments and biological substances; Z79.899 Other long term (current) drug therapy
CPT/HCPCS: 80053; 81001; 85025; 96361; 96374; 96375; 96376; 99284-25; A9270; J1170; J1885; J2405; J3010; J7030

== ENCOUNTER 2020-11-14 19:54 | Emergency (ER) | payer OTHER ==
[~2020-11-14] VITALS: Ht 177.8 cm; Wt 86.2 kg
[~2020-11-14 19:54] MED LIST changes: +ONDANSETRON ODT8 MG PO
[2020-11-14] MEDS ORDERED: METOPROLOL SUCC25 MG PO (20:03)
[2020-11-14] MEDS ORDERED: ELIQUIS5 MG PO (20:04)
[2020-11-14] MEDS ORDERED: OXYCODONE HCL5 MG PO (20:04)
[2020-11-14] MEDS ORDERED: METHOCARBAMOL750 MG PO (20:04)
[2020-11-14] MEDS ORDERED: CLOPIDOGREL75 MG PO (20:05)
--- NOTE | 2020-11-16 19:52 | EKG ---
[facility] [address] [place] [address] Signed Sinus tachycardia Cannot rule out Anterior infarct , age undetermined Abnormal ECG When compared with ECG of 28-MAY-2016 20:39, Minimal criteria for Anterior infarct are now present Confirmed by ANNAMARIA SNOW DO ([id number]) on 11/16/2020 7:52:12 PM Electronically Signed By: ANNAMARIA SNOW DO 11/16/201951 PATIENT NAME: JEFF OTT Electrocardiogram DATE OF : 64 PHYSICIAN: ANNAMARIA SNOW DO REPORT #: [id number] REPORT IS CONFIDENTIAL AND NOT TO BE RELEASED WITHOUT AUTHORIZATION
== END 2020-11-15 01:00 | disposition home or self-care (01) ==
LOC: ED 19:54
DX: U07.1 COVID-19 (principal); I10 Essential (primary) hypertension; Z87.891 Personal history of nicotine dependence; Z88.8 Allergy status to other drugs, medicaments and biological substances; Z88.5 Allergy status to narcotic agent; Z88.1 Allergy status to other antibiotic agents; Z79.899 Other long term (current) drug therapy
CPT/HCPCS: 71045; 71260; 80053; 83605; 84484; 85025; 85610; 85730; 93005; 93010; 96374; 99285-25; C9803; J1885; J7030; M0245; Q9967; U0003

== ENCOUNTER 2020-11-17 10:24 | Emergency (ER) | payer OTHER ==
[~2020-11-17] VITALS: Ht 177.8 cm; Wt 86.2 kg
[~2020-11-17 10:24] MED LIST changes: +CLOPIDOGREL75 MG PO; +ELIQUIS5 MG PO; +METHOCARBAMOL750 MG PO; +METOPROLOL SUCC25 MG PO; +OXYCODONE HCL5 MG PO
[2020-11-17] MEDS ORDERED: PLAVIX75 MG PO (10:34)
[2020-11-17] MEDS ORDERED: PROTONIX40 MG PO (13:35)
== END 2020-11-17 14:10 | disposition home or self-care (01) ==
LOC: ED 10:24
DX: U07.1 COVID-19 (principal); K92.2 Gastrointestinal hemorrhage, unspecified; I10 Essential (primary) hypertension; Z87.891 Personal history of nicotine dependence; Z88.8 Allergy status to other drugs, medicaments and biological substances; Z88.5 Allergy status to narcotic agent; Z88.1 Allergy status to other antibiotic agents; Z88.6 Allergy status to analgesic agent; Z79.899 Other long term (current) drug therapy
CPT/HCPCS: 80053; 85025; 85610; 86850; 86900; 86901; 96374; 99285-25; C9113

== ENCOUNTER 2021-04-30 05:55 | Day surgery (SDC) | payer OTHER ==
[~2021-04-30] VITALS: Ht 177.8 cm; Wt 85.0 kg
[~2021-04-30 05:55] MED LIST changes: +PLAVIX75 MG PO; +PROTONIX40 MG PO
--- NOTE | 2021-04-30 08:17 | NUR ---
04/30/21 0817 Maria Luisa Parada 0808- PT ARRIVES TO PACU NONAROUSABLE TO NOXIOUS STIMULI WITH AN OPA IN PLACE. RESP SHALLOW AND RAPID. RESP 22-26. OXYGEN SAT MID TO HIGH 90'S ON 10L VIA MASK.
--- NOTE | 2021-05-04 09:10 | OR ---
[facility] [address] [place], [place] [address] Signed DATE OF OPERATION: 04/30/2021 SURGEON: Stacey Zimmerman MD PREOPERATIVE DIAGNOSES: 1. Heartburn. 2. Hematemesis. 3. Weakly positive guaiac positive stool. 4. Father with colon cancer at age 62. 5. Paternal uncle with colon cancer in his 70s. 6. Brother with ulcerative colitis requiring the entire colon and rectum removed. 7. Diverticulosis. 8. Personal history of colonic polyps in 2010 at age 51. 9. Rectal pain. POSTOPERATIVE DIAGNOSES: 1. Mild to moderate diffuse gastritis. 2. Small hiatal hernia. 3. 4 mm polyp at 20 cm (rectosigmoid junction). 4. 4 mm polyp at 40 cm. 5. 4 mm polyp at the distal right colon. 6. 3 mm polyp at 4 cm. 7. Moderate sigmoid diverticulosis. 8. Moderate internal hemorrhoids. 9. Indurated large prostate with right side larger than left side. PROCEDURES: 1. EGD with CLOtest and biopsy of the antrum. 2. Colonoscopy with hot biopsies. ESTIMATED BLOOD LOSS: None. INDICATIONS: Jeff is a 61-year-old gentleman with a rather significant past medical history as listed in the history and physical. He has been asked to come see me for both upper and lower endoscopy. He had actually gone to cardiac clearance in 2020 for his lumbar fusion. His lumbar fusion in October was very successful for him. He was on Plavix and Eliquis due to his cardiac stents. He ended up in the emergency room a few days after the back surgery in October of 2020. He had coffee-ground emesis and melena. They thought Electronically Signed By: STACEY ZIMMERMAN MD 04/30/21 1025 Electronically Signed By: STACEY ZIMMERMAN MD 05/05/21 0825 PATIENT NAME: JEFF OTT OPERATIVE REPORT DATE OF : 64 REPORT #: [id number] PHYSICIAN: STACEY ZIMMERMAN MD PCP: GIULIANA HOUSTON MD REPORT IS CONFIDENTIAL AND NOT TO BE RELEASED WITHOUT AUTHORIZATION [facility] [address] [place], [place] [address] Signed on digital rectal exam, he had trace guaiac-positive stool. His blood counts were excellent. He was sent home on Protonix and stopped his blood thinners. Unfortunately, he decided to stop all his medications at that time. His family history and personal history are as above. We know Jeff had a barium swallow back in 2006 with possible small hiatal hernia. His upper endoscopy in 2007 was generally unremarkable. His colonoscopy in 2010 had a tubular adenomatous polyp along with diverticulosis. Repeat colonoscopy in 2012 showed a hyperplastic polyp with his diverticulosis. He does not feel like he has had any further GI complaints or symptoms since he stopped his blood thinners. In the office, I gave him a pamphlet on both upper and lower endoscopy. He understands the nature of the two tests. He understands there is risk including, but not limited to gas bloating, crampy abdominal pain, bleeding, perforation requiring surgery, and missed diagnosis. Also because of his advanced medical issues, we asked for monitored anesthesia care. That proved to be a gregory decision as he does take a large amount of propofol. He had expressed understanding and wished to proceed. PROCEDURE NOTE: Jeff was taken into our endoscopy suite and placed in the supine semi-recumbent position. He was given IV sedation with propofol per our nurse lease out man. A bite block was utilized for the case. The adult gastroscope was introduced and advanced under direct visualization of camera into the duodenum itself. The duodenum and pyloric channel were unremarkable. We saw no ulcers in the pyloric channel or the antrum. He has diffuse erythematous changes throughout the stomach. He has few areas of punctate hemorrhage. We took a biopsy of the antrum for CLOtest as well as pathologic review. Upon retroflexion of the scope, he probably has just a small hiatal hernia. He was coughing up saliva quite a bit during the test, it was difficult to ascertain significant details. The scope had been withdrawn up through the area of GE junction, which was compliant without stricture. Does have some inflammation around the edge of the Z-line. There was no Lamb's mucosa. No distal esophagitis. The middle and upper esophagus were unremarkable. After this, the gas was suctioned out and the gastroscope removed. Jeff tolerated his upper endoscopy overall well. Jeff was rotated into the left lateral decubitus position. He was maintained on IV propofol per our nurse lease out man. A digital rectal exam was performed. He has rather significantly indurated prostate. The right is significantly larger than the left. His told me that he has trouble with his urine starting and stopping. I encouraged his that he review this with his primary care provider. The scope had been introduced and advanced all around into the cecum under direct visualization of camera. It took just a few minutes to get through the sigmoid colon. His prep overall was good. Unfortunately, he had some formed stool in the cecum in the right colon, but otherwise his prep was actually pretty good. We could see the base of the cecum and his ileocecal valve. We took pictures throughout for photodocumentation. The scope was then slowly withdrawn. The above-mentioned polyps were easily removed with the help of hot biopsy Electronically Signed By: STACEY ZIMMERMAN MD 04/30/21 1025 Electronically Signed By: STACEY ZIMMERMAN MD 05/05/21 0845 PATIENT NAME: JEFF OTT OPERATIVE REPORT DATE OF : 64 REPORT #: [id number] PHYSICIAN: STACEY ZIMMERMAN MD PCP: GIULIANA HOUSTON MD REPORT IS CONFIDENTIAL AND NOT TO BE RELEASED WITHOUT AUTHORIZATION [facility] [address] [place], [place] [address] Signed forceps. Again, he has moderate sigmoid diverticulosis. They are moderate in size, moderate in number and scattered about. Once down in the rectum, the scope had been retroflexed. He does have moderate internal hemorrhoids. After this, the gas was suctioned out and the colonoscope removed. Jeff tolerated the procedure quite well. RECOMMENDATIONS: I will see Jeff back in my office in 7 to 14 days to review his results. He should review his prostate exam and symptoms with his primary care provider. Stacey Zimmerman MD ALB/MODL /[id number] cc: MD Giuliana Quinteros MD Copies: STACEY ZIMMERMAN MD, LOHITH VEERAPPA MD ~ Electronically Signed By: STACEY ZIMMERMAN MD 04/30/21 1025 Electronically Signed By: STACEY ZIMMERMAN MD 05/05/21 0825 PATIENT NAME: JEFF OTT KAREN OPERATIVE REPORT DATE OF : 64 REPORT #: [id number] PHYSICIAN: STACEY ZIMMERMAN MD PCP: GIULIANA HOUSTON MD REPORT IS CONFIDENTIAL AND NOT TO BE RELEASED WITHOUT AUTHORIZATION
== END 2021-04-30 09:05 | disposition home or self-care (01) ==
LOC: OPS 05:55 → DS 05:55 → OPS 07:30 → DS 07:30 → OPS 09:05
PROVIDERS: ATTEND Colon & Rectal Surgery
PROC: 0DBN8ZX Excision of Sigmoid Colon, Via Natural or Artificial Opening Endoscopic, Diagnostic (ICD-10-PCS; 2021-04-30)
PROC: 0DB78ZX Excision of Stomach, Pylorus, Via Natural or Artificial Opening Endoscopic, Diagnostic (ICD-10-PCS; principal; 2021-04-30 07:30)
PROC: 0DBK8ZX Excision of Ascending Colon, Via Natural or Artificial Opening Endoscopic, Diagnostic (ICD-10-PCS; 2021-04-30 07:30)
DX: D12.2 Benign neoplasm of ascending colon (principal); K29.70 Gastritis, unspecified, without bleeding; K44.9 Diaphragmatic hernia without obstruction or gangrene; K57.30 Diverticulosis of large intestine without perforation or abscess without bleeding; K64.8 Other hemorrhoids; N40.0 Benign prostatic hyperplasia without lower urinary tract symptoms; I25.10 Atherosclerotic heart disease of native coronary artery without angina pectoris; J44.9 Chronic obstructive pulmonary disease, unspecified; E78.5 Hyperlipidemia, unspecified; Z87.891 Personal history of nicotine dependence; Z88.5 Allergy status to narcotic agent; Z88.8 Allergy status to other drugs, medicaments and biological substances; Z20.822 Contact with and (suspected) exposure to COVID-19
CPT/HCPCS: 87077; 88305; J2704; J7121